=== PATIENT | female | born 1935 | race Caucasian/White ===

== ENCOUNTER 2016-08-23 09:27 | Emergency (ER) | payer MEDICARE, BC ==
[2016-08-23] MEDS: Aspirin Low Dose CHEW TAB* 81 MG PO ONE ×2 (10:21→10:51)
[2016-08-23 10:54] VITALS: BP 183/94
--- NOTE | 2016-08-23 13:33 | UC ---
rachele Cardona Timothy, scribed for Carmen Azevedo DO on 08/23/16 at 0952 . Cardiac HPI - HPI Summary HPI Summary: Sheeba Craft is a 81 yo female presenting to [facility] with 4/10 constant left sided CP and ache for the past week. She states she fell 2 weeks ago but states that has no had any negative affects on her, and denies pain in the left neck or arm. She states pain increases with cough or sneezing, as well as position changes. Pt has had cough for the past year, and has seen her PCP for it. She states she has some SOB due to valve problems, but this is not different from baseline. She denies any other Sx. Her MHx includes right sided breast CA 2011. - History of Current Complaint Stated Complaint: CHEST PAIN, Time Seen by Provider: 08/23/16 09:59 Hx Obtained From: Patient Onset/Duration: Sudden Onset, Lasting Hours, Still Present Timing: Constant Initial Severity: Moderate Current Severity: Moderate Pain Intensity: 4 Chest Pain Location: Discrete at: - left sternal Character: Dull/Aching, Sharp/Stabbing - with sneezing, coughing and certain movements Aggravating: Position Alleviating: Position Associated Signs & Symptoms: Positive: Chest Pain, SOB - baseline. Negative: Dizziness, Fever, Diaphoresis, Nausea/Vomiting, Abdominal Pain - Allergy/Home Medications Allergies/Adverse Reactions: Allergies Allergy/AdvReac Type Severity Reaction Status Date / Time No Known Allergies Allergy Verified 08/23/16 11:16 Home Medications: Home Medications Alendronate Sodium [Alendronate Sodium-] 35 mg 08/23/16 [History] Aspirin EC Low Dose* [Ecotrin EC Low Dose*] 1 tab PO DAILY 08/23/16 [History Confirmed 08/23/16] Cholecalciferol TAB* [Vitamin D TAB*] 08/23/16 [History] Hydrochlorothiazide TAB* [Hydrodiuril TAB*] 12.5 mg 08/23/16 [History] Spironolactone TAB* [Aldactone TAB 25 MG*] 12.5 mg 08/23/16 [History] PMH/Surg Hx/FS Hx/Imm Hx - Additional Past Medical History Additional PMH: leaky valves, pmr Cancer History Of: Reports: Breast Cancer - RIGHT [id number] - Surgical History Surgical History: Yes Surgery Procedure, Year, and Place: AORTA SURGERY 2005,lumpectomy right 2011, - Family History Known Family History: Positive: Hypertension Negative: Cardiac Disease, Diabetes - Social History Occupation: Retired Alcohol Use: None Substance Use Type: None Smoking Status (MU): Never Smoked Tobacco Review of Systems Constitutional: Negative Skin: Negative Eyes: Negative ENT: Negative Respiratory: Shortness Of Breath - baseline Cardiovascular: Chest Pain Gastrointestinal: Negative Genitourinary: Negative Motor: Negative Neurovascular: Negative Musculoskeletal: Negative Neurological: Negative Psychological: Negative All Other Systems Reviewed And Are Negative: Yes Physical Exam Triage Information Reviewed: Yes Appearance: Well-Appearing, No Pain Distress, Well-Nourished Vital Signs: Initial Vital Signs Temp 98.0 F 08/23/16 09:47 Pulse 82 08/23/16 09:47 Resp 18 08/23/16 09:47 BP 150/93 08/23/16 09:47 Pulse Ox 97 08/23/16 09:47 Vital Signs Reviewed: Yes Eyes: Positive: Conjunctiva Clear. Negative: Discharge ENT: Positive: Hearing grossly normal. Negative: Muffled/hoarse voice Neck: Positive: Supple, Nontender Respiratory: Positive: Lungs clear, Normal breath sounds, No respiratory distress, No accessory muscle use Cardiovascular: Positive: No Murmur, Other: - reproducible chest tenderness to palpation at left aspect of sternum. Negative: RRR - irregular rhythm Musculoskeletal Exam: Normal Neurological Exam: Normal Neurological: Positive: Alert, Muscle Tone Normal Psychological Exam: Normal Psychological: Positive: Age Appropriate Behavior Skin Exam: Normal - warm, dry, normal color Diagnostics - EKG Cardiac Rate: NL - Interpretation: 0932 Sinus arrythmia@ [address] changes, positive PVC's. Premature ventricular complexes new when compared to EKG 05/22/10. Re-Evaluation - Re-Evaluation First Eval Re-Evaluation Time: 10:19 Change: Unchanged Comment: Pt was informed of current disposition, and is agreeable to be transferred by ambulance to [facility] - Assessment/Plan Course Of Treatment: Sheeba Craft is a 81 yo female presenting to [facility] with CP for the past week, with some SOB due to leaky valves, not different from baseline. She denies left arm, neck, or jaw pain. After clinical examination and review of her EKG, as well as discussion with Dr. Aguirre, she will be transferred to [facility] by ambulance for further evaluation and Tx. - Clinical Impression Provider Diagnoses: chest pain - Physician Notifications Discussed Patient Care With: 1013 - Dr. Aguirre ([facility] physician) - Discussed Pt condition, agrees to see Pt in [facility]. Instructed by Provider To: MD Will See In ED Discharge - Discharge Plan Condition: Stable Disposition: TRANS HIGHER LVL OF CARE FAC Discharge Disposition Comment: Pt will be transferred to [facility] for further care and evaluation of her CP Referrals: Mi Grajeda MD [Primary Care Provider] - The documentation as recorded by the rachele lopez Timothy accurately reflects the service I personally performed and the decisions made by me, Carmen Azevedo DO.
== END 2016-08-23 10:51 | disposition short-term general hospital (02) ==
LOC: UCEAST 09:27
DX: R07.89 Other chest pain (principal); R06.02 Shortness of breath; I49.3 Ventricular premature depolarization; Z85.3 Personal history of malignant neoplasm of breast
CPT/HCPCS: 93005; 99213; A9270-GY; G0463

== ENCOUNTER 2016-08-23 11:04 | Emergency (ER) | payer MEDICARE, BC ==
[2016-08-23 11:37] LABS: Hematocrit 46 % (35-47); Mean Corpuscular HGB Conc 32 g/dl (31-36); Mean Corpuscular Hemoglobin 29 pg (27-31); Mean Corpuscular Volume 90 fL (80-97); Mean Platelet Volume 10 um3 (7.4-10.4); Red Blood Count 5.14 10^6/ul (4.0-5.4); Red Cell Distribution Width 15 % (10.5-15); White Blood Count 5.9 10^3/ul (3.5-10.8)
[2016-08-23 11:55] LABS: C Reactive Protein 8.83 mg/L (< 5.00); Calcium 9.7 mg/dL (8.6-10.3); EGFR African American 73.9 (>60); EGFR Non-African American 57.4 (>60); Globulin 3.6 g/dL (2-4); Magnesium 1.8 mg/dL (1.9-2.7); Potassium 4.4 mmol/L (3.5-5.0); Total Bilirubin 0.6 mg/dL (0.2-1.0); Total Protein 7.6 g/dL (6.4-8.9)
[2016-08-23 11:56] LABS: Troponin I 0.01 ng/mL (<0.04)
[2016-08-23 12:01] VITALS: BP 179/93
[2016-08-23 12:03] LABS: TSH (Thyroid Stimulating Horm) 2.67 mcIU/mL (0.34-5.60)
--- NOTE | 2016-08-23 12:06 | RAD ---
INDICATION: LEFT anterior chest pain. Fall a couple of weeks ago. Pain worse this weekend. History of RIGHT breast carcinoma. COMPARISON: July 12, 2016 CT chest. 2 view LEFT rib series obtained. TECHNIQUE: Dual energy PA and routine lateral views of the chest were obtained. REPORT: Elevated lung volumes with both mild prominence and rarefaction of the interstitial markings. No focal pulmonary lesion, alveolar consolidation, pleural effusion, pneumothorax. Cardiomegaly. Prosthetic mitral valve annulus. Mediastinal vascular clips. Unremarkable central pulmonary vasculature. Mildly tortuous descending thoracic aorta. No LEFT rib or other thoracic fracture evident. Mild thoracic degenerative spondylosis. Postsurgical change of RIGHT breast lumpectomy. RIGHT axillary surgical clips. IMPRESSION: 1. No traumatic thoracic injury evident. 2. Stigmata of probable chronic obstructive pulmonary disease and emphysema. 3. No evidence for acute intrathoracic disease.
[2016-08-23 12:23] LABS: BUN/Creatinine Ratio 22.3 (8-20)
--- NOTE | 2016-08-23 12:25 | ED ---
Brendan, DoctorJyoti, scribed for Kam Aguirre MD on 08/23/16 at 1134 . HPI Chest Pain - HPI Summary HPI Summary: 81 year old female arrived to [facility] by ambulance after referral by [facility] for left chest pain that has been constant for a week. Patient reports the pain to be 8/10 at its worse, but now largely resolved. Pt reports slight SOB and indicates that pain is exacerbated by movement, deep breaths, and sneezing. She denies any nausea, vomiting, abdominal pain, rashes, cough, or rhinorrhea. She fell two weeks ago, and has a bruise on her left chest. She has no PMHx of SD, DM, smoking, blood clots, GERD, or gallbladder problems. She regularly sees Dr. Marquez ([facility]). - History of Current Complaint Chief Complaint: EDChestPainROMI Time Seen by Provider: 08/23/16 11:09 Hx Obtained From: Patient Onset/Duration: Started Days Ago Timing: Constant Initial Severity: Moderate Current Severity: Moderate Pain Intensity: 0 Pain Scale Used: 0-10 Numeric Chest Pain Radiates: No Aggravating Factor(s): Exertion, Movement, Deep Breaths, Other: - sneezing Alleviating Factor(s): Spontaneous Resolution Associated Signs and Symptoms: Positive: Chest Pain, Shortness of Breath. Negative: Nausea, Vomiting - Allergy/Home Medications Allergies/Adverse Reactions: Allergies Allergy/AdvReac Type Severity Reaction Status Date / Time No Known Allergies Allergy Verified 08/23/16 11:16 PMH/Surg Hx/FS Hx/Imm Hx Endocrine/Hematology History: Denies: Hx Diabetes Cardiovascular History: Reports: Hx Hypertension Denies: Hx Myocardial Infarction GI History: Denies: Hx Gall Bladder Disease Musculoskeletal History: Denies: Hx Rheumatoid Arthritis, Hx Osteoporosis - Cancer History Cancer Type, Location and Year: RIGHT SIDED BREAST CANCER 2012 Hx Chemotherapy: Yes - BREAST Hx Radiation Therapy: Yes - BREAST - Surgical History Surgery Procedure, Year, and Place: AORTA SURGERY 2006,lumpectomy right 2012 Infectious Disease History: No Infectious Disease History: Denies: Traveled Outside the [place] in Last 30 Days - Family History Known Family History: Positive: Other - FHx of breast cancer - Social History Alcohol Use: None Substance Use Type: Reports: None Smoking Status (MU): Never Smoked Tobacco Review of Systems Negative: Fever Negative: Nasal Discharge Positive: Chest Pain Positive: Shortness Of Breath Negative: Abdominal Pain, Vomiting, Nausea Positive: Bruising - small bruise on left chest. Negative: Rash All Other Systems Reviewed And Are Negative: Yes Physical Exam Triage Information Reviewed: Yes Vital Signs On Initial Exam: Initial Vitals Temp Pulse Resp BP Pulse Ox 98.1 F 79 15 164/102 99 08/23/16 11:12 08/23/16 11:12 08/23/16 11:12 08/23/16 11:12 08/23/16 11:12 Vital Signs Reviewed: Yes Appearance: Positive: Well-Appearing, No Pain Distress Skin: Positive: Warm, Skin Color Reflects Adequate Perfusion, Dry, Tender - bruise on left chest TTP. Calves are non-tender, Other - 4 x 2.5 cm ecchymosis on left chest Head/Face: Positive: Normal Head/Face Inspection Eyes: Positive: EOMI, TEVIN ENT: Positive: Normal ENT inspection Neck: Positive: Supple, Nontender Respiratory/Lung Sounds: Positive: Clear to Auscultation, Breath Sounds Present Cardiovascular: Positive: IRR - some irregularity in the heart Abdomen Description: Positive: Nontender, Soft Bowel Sounds: Positive: Present Musculoskeletal: Positive: Normal. Negative: Edema Left - no edema in LLE, Edema Right - no edema in RLE Neurological: Positive: Normal, Sensory/Motor Intact, Alert, Oriented to Person Place, Time Psychiatric: Positive: Normal, Affect/Mood Appropriate Diagnostics - Vital Signs Vital Signs Temp Pulse Resp BP Pulse Ox 08/23/16 11:12 98.1 F 79 15 164/102 99 - Laboratory Lab Results: Lab Results 08/23/16 08/23/16 08/23/16 Range/Units 10:38 10:38 10:38 WBC 5.9 (3.5-10.8) 10^3/ul RBC 5.14 (4.0-5.4) 10^6/ul Hgb 15.0 (12.0-16.0) g/dl Hct 46 (35-47) % MCV 90 (80-97) fL MCH 29 (27-31) pg MCHC 32 (31-36) g/dl RDW 15 (10.5-15) % Plt Count 135 L (150-450) 10^3/ul MPV 10 (7.4-10.4) um3 Neut % (Auto) 70.0 (38-83) % Lymph % (Auto) 19.8 L (25-47) % [place] % (Auto) 8.9 (1-9) % Eos % (Auto) 0.7 (0-6) % Baso % (Auto) 0.6 (0-2) % Absolute Neuts (auto) 4.1 (1.5-7.7) 10^3/ul Absolute Lymphs (auto) 1.2 (1.0-4.8) 10^3/ul Absolute Monos (auto) 0.5 (0-0.8) 10^3/ul Absolute Eos (auto) 0 (0-0.6) 10^3/ul Absolute Basos (auto) 0 (0-0.2) 10^3/ul Absolute Nucleated RBC 0 10^3/ul Nucleated RBC % 0 INR (Anticoag Therapy) 0.94 (0.89-1.11) APTT 31.7 (26.0-36.3) seconds D-Dimer, Quantitative < 200 (Less Than 230) ng/mL Sodium 133 (133-145) mmol/L Potassium 4.4 (3.5-5.0) mmol/L Chloride 97 L (101-111) mmol/L Carbon Dioxide 30 (22-32) mmol/L Anion Gap 6 (2-11) mmol/L BUN Pending Creatinine 0.94 (0.51-0.95) mg/dL Est GFR ( Amer) 73.9 (>60) Est GFR (Non-Af Amer) 57.4 (>60) BUN/Creatinine Ratio Pending Glucose 87 (70-100) mg/dL Lactic Acid (0.5-2.0) mmol/L Calcium 9.7 (8.6-10.3) mg/dL Magnesium 1.8 L (1.9-2.7) mg/dL Total Bilirubin 0.60 (0.2-1.0) mg/dL AST 21 (13-39) U/L ALT 9 (7-52) U/L Alkaline Phosphatase 89 (34-104) U/L Total Creatine Kinase 69 (10-223) U/L CK-MB (CK-2) 2.2 (0.6-6.3) ng/mL Troponin I 0.01 (<0.04) ng/mL C-Reactive Protein 8.83 H (< 5.00) mg/L B-Natriuretic Peptide ( - 100) pg/mL Total Protein 7.6 (6.4-8.9) g/dL Albumin 4.0 (3.2-5.2) g/dL Globulin 3.6 (2-4) g/dL Albumin/Globulin Ratio 1.1 (1-3) Lipase 30 (11.0-82.0) U/L TSH 2.67 (0.34-5.60) mcIU/mL 08/23/16 08/23/16 Range/Units 10:38 10:38 WBC (3.5-10.8) 10^3/ul RBC (4.0-5.4) 10^6/ul Hgb (12.0-16.0) g/dl Hct (35-47) % MCV (80-97) fL MCH (27-31) pg MCHC (31-36) g/dl RDW (10.5-15) % Plt Count (150-450) 10^3/ul MPV (7.4-10.4) um3 Neut % (Auto) (38-83) % Lymph % (Auto) (25-47) % [place] % (Auto) (1-9) % Eos % (Auto) (0-6) % Baso % (Auto) (0-2) % Absolute Neuts (auto) (1.5-7.7) 10^3/ul Absolute Lymphs (auto) (1.0-4.8) 10^3/ul Absolute Monos (auto) (0-0.8) 10^3/ul Absolute Eos (auto) (0-0.6) 10^3/ul Absolute Basos (auto) (0-0.2) 10^3/ul Absolute Nucleated RBC 10^3/ul Nucleated RBC % INR (Anticoag Therapy) (0.89-1.11) APTT (26.0-36.3) seconds D-Dimer, Quantitative (Less Than 230) ng/mL Sodium (133-145) mmol/L Potassium (3.5-5.0) mmol/L Chloride (101-111) mmol/L Carbon Dioxide (22-32) mmol/L Anion Gap (2-11) mmol/L BUN Creatinine (0.51-0.95) mg/dL Est GFR ( Amer) (>60) Est GFR (Non-Af Amer) (>60) BUN/Creatinine Ratio Glucose (70-100) mg/dL Lactic Acid 1.6 (0.5-2.0) mmol/L Calcium (8.6-10.3) mg/dL Magnesium (1.9-2.7) mg/dL Total Bilirubin (0.2-1.0) mg/dL AST (13-39) U/L ALT (7-52) U/L Alkaline Phosphatase (34-104) U/L Total Creatine Kinase (10-223) U/L CK-MB (CK-2) (0.6-6.3) ng/mL Troponin I (<0.04) ng/mL C-Reactive Protein (< 5.00) mg/L B-Natriuretic Peptide 169 H ( - 100) pg/mL Total Protein (6.4-8.9) g/dL Albumin (3.2-5.2) g/dL Globulin (2-4) g/dL Albumin/Globulin Ratio (1-3) Lipase (11.0-82.0) U/L TSH (0.34-5.60) mcIU/mL Result Diagrams: 08/23/16 10:38 08/23/16 10:38 Lab Statement: Any lab studies that have been ordered have been reviewed, and results considered in the medical decision making process. - Radiology Ribs X-Ray Radiology Interpretation Completed By: Radiologist - IMPRESSION: 1. No traumatic thoracic injury evident. 2. Stigmata of probable chronic obstructive pulmonary disease and emphysema. 3. No evidence for acute intrathoracic disease. Chest X-Ray Radiology Interpretation Completed By: Radiologist - IMPRESSION: 1. No traumatic thoracic injury evident. 2. Stigmata of probable chronic obstructive pulmonary disease and emphysema. 3. No evidence for acute intrathoracic disease. - EKG 11:19 Cardiac Rate: NL - 74 BPM EKG Rhythm: Sinus Rhythm - Normal Ectopy: PACs EKG Interpretation: Flipped T in III and aVF Re-Evaluation - Re-Evaluation First Eval Re-Evaluation Time: 12:13 Chest Pain Course/Dx - Course Assessment/Plan: PATIENT HAS A BRUISE ON HER CHEST WALL THAT IS TENDER TO PALPATION AND SHE REPORTS THIS IS THE PAIN SHE HAS HAD FOR 1 WEEK. LABS NORMAL. DISCUSSED ADMISSION WITH PATIENT. SHE DECLINES ADMISSION. DISCHARGE HOME STABLE. - Diagnoses Provider Diagnoses: Chest pain Discharge - Discharge Plan Condition: Stable Disposition: HOME Patient Education Materials: Chest Pain (ED) Referrals: Mi Grajeda MD [Primary Care Provider] - Additional Instructions: CALL TODAY TO FOLLOW UP WITH YOUR DOCTOR. TAKE ACETAMINOPHEN DIRECTED NEEDED FOR PAIN. RETURN TO THE EMERGENCY DEPARTMENT FOR ANY WORSENING OF YOUR CONDITION; PAIN, FEVER, SHORTNESS OF BREATH OR QUESTIONS OR CONCERNS. The documentation as recorded by the Doctor lopez Tahera accurately reflects the service I personally performed and the decisions made by me, Kam Aguirre MD.
[2016-08-23 12:52] LABS: Urine Bacteria Absent (Absent); Urine Bilirubin Negative (Negative); Urine Glucose Negative (Negative); Urine Nitrite Negative (Negative)
--- NOTE | 2016-08-25 12:35 | PN ---
Progress Note - Progress Note Note: patient was seen and diagnosed with chest pain on 08/22/16. Not complaining of any urinary symptoms. Urine culture preliminary results came back positive for Klebsiella pneumonia 25-50,000 count. Not enough to be treated especially without complaints or symptoms. Pending final results with susceptibility. No changes needed at this time.
--- NOTE | 2016-08-26 11:06 | PN ---
Progress Note - Progress Note Note: Spoke with Mrs Craft today at 11:02am. Patient is feeling better, she is still sore but has not developed any new or worsening symptoms. Patient denies any urinary symptoms and does not have a catheter. Is aware or urine culture showing some small amount of klebsiella pneumoniae growth however would not be treated at this time. Educated on worsening signs and symptoms to be aware of for possible treatment in the future. No treatment or change needed at this time.
== END 2016-08-23 16:17 | disposition home or self-care (01) ==
LOC: ED 11:04
DX: S20.212A Contusion of left front wall of thorax, initial encounter (principal); R07.9 Chest pain, unspecified; R06.02 Shortness of breath; X58.XXXA Exposure to other specified factors, initial encounter; Y93.9 Activity, unspecified; Y92.9 Unspecified place or not applicable; Y99.9 Unspecified external cause status; I49.3 Ventricular premature depolarization; Z85.3 Personal history of malignant neoplasm of breast
CPT/HCPCS: 36415; 71020; 80053; 81003; 81015; 82550; 82553; 83605; 83690; 83735; 83880; 84443; 84484; 85025; 85379; 85610; 85730; 86140; 87077; 87086; 87186; 93005; 99213; 99282; A9270-GY; G0463

== ENCOUNTER 2018-03-07 11:03 | Inpatient (IN) | payer MEDICARE, BC ==
--- NOTE | 2018-03-07 11:28 | RAD ---
HISTORY: CP COMPARISONS: August 23, 2016 VIEWS: 1: frontal portable view of the chest at 11:23 AM FINDINGS: LINES AND TUBES: None. CARDIOMEDIASTINAL SILHOUETTE: The cardiac silhouette is enlarged. Periprosthetic heart valve is noted.. PLEURA: The costophrenic angles are sharp. No pleural abnormalities are noted. LUNG PARENCHYMA: There is hyperinflation. ABDOMEN: The upper abdomen is clear. There is no subphrenic gas. 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 IMPRESSION: 1. HYPERINFLATION. 2. CARDIOMEGALY. 3. NO ACTIVE CARDIOPULMONARY DISEASE.
--- NOTE | 2018-03-07 11:37 | ED ---
HPI Cardiac - HPI Summary HPI Summary: Patient is a 82 y/o F w/ c/o chest heaviness and tiredness for the past month. She notes that Sx have progressively worsened. Patient reports that she has had difficulty getting an appointment with Dr. Marquez. She was seen by Dr. Marquez' s PA Miroslava Monsivais, who reports that patient had extra heartbeats. In the room, patient reports chest pressure/heaviness. On triage, associated severity is 8/ 10. She notes that pressure resolves when lying flat/standing still. Chest pressure onsets during exertion. She also reports chills and sweating. She denies feelings of near syncope, N/V, SOB, and palpitations. Patient states that she has not had a stress test in years. No Hx of MO is reported. She notes that she had a valve repair around ten years ago. Patient denies being on blood thinners. One baby aspirin was taken by patient this morning. Home medications and allergies reviewed. - History of Current Complaint Chief Complaint: EDChestPainROMI Stated Complaint: CHEST DISCOMFORT Time Seen by Provider: 03/07/18 11:08 Hx Obtained From: Patient Onset/Duration: Started Weeks Ago - onset a month ago, Still Present Timing: Constant Current Severity: Severe - 8/10 Pain Intensity: 8 Pain Scale Used: 0-10 Numeric - 8/10 Character: Heaviness, Pressure/Squeezing Aggravating Factor(s): Exertion Alleviating Factor(s): Rest - lying flat, standing still Associated Signs and Symptoms: Positive: Chills, Diaphoresis, Other: - POSITIVE : chest pressure, tiredness NEGATIVE: near syncope. Negative: Shortness of Breath, Nausea, Palpitations, Vomiting - Allergy/Home Medications Allergies/Adverse Reactions: Allergies Allergy/AdvReac Type Severity Reaction Status Date / Time No Known Allergies Allergy Verified 08/23/16 11:16 Home Medications: Home Medications Aspirin EC TAB* [Ecotrin EC Low Dose 81 MG*] 81 mg PO QAM 03/07/18 [History Confirmed 03/07/18] Cholecalciferol TAB* [Vitamin D TAB*] 2,000 unit PO QAM 03/07/18 [History Confirmed 03/07/18] Cyanocobalamin TAB* [Vitamin B12 TAB*] 500 mcg PO Q72H 03/07/18 [History Confirmed 03/07/18] Cyclosporine 0.05% OPHTH (NF) [Restasis 0.05% OPHTH] 1 drop BOTH EYES BID [History Confirmed 03/07/18] Hydrochlorothiazide TAB* [Hydrodiuril TAB*] 25 mg PO EVERY OTHER DAY 03/07/18 [ History Confirmed 03/07/18] PMH/Surg Hx/FS Hx/Imm Hx Endocrine/Hematology History: Denies: Hx Diabetes Cardiovascular History: Reports: Hx Hypertension Denies: Hx Myocardial Infarction GI History: Denies: Hx Gall Bladder Disease Musculoskeletal History: Denies: Hx Rheumatoid Arthritis, Hx Osteoporosis - Cancer History Cancer Type, Location and Year: RIGHT SIDED BREAST CANCER 2011 Hx Chemotherapy: Yes - BREAST Hx Radiation Therapy: Yes - BREAST - Surgical History Surgery Procedure, Year, and Place: [facility] SURGERY 2005,lumpectomy right 2011 Infectious Disease History: No Infectious Disease History: Denies: Traveled Outside the [place] in Last 30 Days - Family History Known Family History: Positive: Hypertension, Other - FHx of breast cancer Negative: Cardiac Disease, Diabetes - Social History Alcohol Use: None Substance Use Type: Reports: None Smoking Status (MU): Never Smoked Tobacco Review of Systems Positive: Chills, Fatigue - tiredness , Skin Diaphoresis Positive: Other - chest pressure/heaviness, extra heartbeats . Negative: Palpitations Negative: Shortness Of Breath Negative: Vomiting, Nausea Neurological: Other - NEGATIVE: near syncope All Other Systems Reviewed And Are Negative: Yes Physical Exam - Summary Physical Exam Summary: VITAL SIGNS: Reviewed. GENERAL: Patient is a well-developed and nourished female who is lying comfortable in the stretcher. Patient is not in any acute respiratory distress. HEAD AND FACE: No signs of trauma. No ecchymosis, hematomas or skull depressions. No sinus tenderness. EYES: PERRLA, EOMI x 2, No injected conjunctiva, no nystagmus. EARS: Hearing grossly intact. Ear canals and tympanic membranes are within normal limits. MOUTH: Oropharynx within normal limits. NECK: Supple, trachea is midline, no adenopathy, no JVD, no carotid bruit, no c- spine tenderness, neck with full ROM. CHEST: Symmetric, no tenderness at palpation LUNGS: Clear to auscultation bilaterally. No wheezing or crackles. CVS: Regular rate and rhythm, S1 and S2 present, no gallops appreciated. 2/6 ejection systolic murmur is appreciated. ABDOMEN: Soft, non-tender. No signs of distention. No rebound no guarding, and no masses palpated. Bowel sounds are normal. EXTREMITIES: FROM in all major joints, no edema, no cyanosis or clubbing. NEURO: Alert and oriented x 3. No acute neurological deficits. Speech is normal and follows commands. SKIN: Dry and warm Triage Information Reviewed: Yes Vital Signs On Initial Exam: Initial Vitals Temp Pulse Resp BP Pulse Ox 98.1 F 59 18 164/84 98 03/07/18 11:05 03/07/18 11:05 03/07/18 11:05 03/07/18 11:05 03/07/18 11:05 Vital Signs Reviewed: Yes Diagnostics - Vital Signs Vital Signs Temp Pulse Resp BP Pulse Ox 03/07/18 11:05 98.1 F 59 18 164/84 98 - Laboratory Result Diagrams: 03/07/18 11:36 03/07/18 11:36 Lab Statement: Any lab studies that have been ordered have been reviewed, and results considered in the medical decision making process. - Radiology CXR Xray Interpretation: No Acute Changes Radiology Interpretation Completed By: Radiologist - hyperinflation, cardiomegaly, no active cardiopulmonary disease; this report was reviewed by ED physician. - EKG 1116 Cardiac Rate: NL - rate of 90 bpm EKG Rhythm: Sinus Rhythm Ectopy: PVCs - multiple Re-Evaluation - Re-Evaluation First Eval Re-Evaluation Time: 12:42 Comment: Patient was informed of decision to admit to [facility] [place] further workup. Patient understands and is agreeable with this plan. Disposition - Course Assessment/Plan: This patient is an 82-year-old female with past medical history significant for breast cancer, congestive heart failure, chronic fatigue , presents to the emergency room with a chief complaint of having chest heaviness. Patient reports that chest heaviness or pain is associated with exertion. Patient is be having the symptoms for approximately one month. The chest pain or heaviness improves with rest, positive diaphoresis, denies any nausea or vomiting, denies any shortness of breath, near syncope or palpitations. EKG shows a sinus rhythm at [address] elevations. Patient has multiple PVCs. Chest x-ray impression: Hyperventilation. Cardiomegaly. No active cardiopulmonary disease. During the ED course the patient was given aspirin. I held the beta ricardo and nitroglycerin since the patient chest pain is only on exertion . I believe that the patients chest pain is possibly secondary to stable angina. However because of the symptoms and comorbidities I discussed case with Dr. Harmon from the hospital services was accepted the patient for admission. Patient is hemodynamically stable alert and oriented 3. - Differential Dx - Cardiopulmonary Differential Diagnoses - Cardiopulmonary: CAD, CHF, Myocardial Infarction, Other - Angina - Diagnoses Provider Diagnoses: Angina pectoris - Physician Notifications Discussed Care Of Patient With: Roxana Harmon Time Discussed With Above Provider: 13:24 Instructed by Provider To: Other - Patient's case was discussed with Dr. Harmon at 1324. Dr. Harmon agrees to accept patient for admission to [facility]. Discharge - Sign-Out/Discharge Documenting (check all that apply): Patient Departure - admit - Discharge Plan Condition: Good Disposition: ADMITTED TO [facility] - Billing Disposition and Condition Condition: GOOD Disposition: Admitted to [facility] - Attestation Statements Document Initiated by Scribe: Yes Documenting Scribe: Travis Beltran Provider For Whom Stephaneibe is Documenting (Include Credential): Kp France MD Scribe Attestation: I, Travis Beltran, scribed for Kp France MD on 03/07/18 at 1844. Scribe Documentation Reviewed: Yes Provider Attestation: The documentation as recorded by the Travis lopez accurately reflects the service I personally performed and the decisions made by me, Kp France MD
[2018-03-07 11:44] LABS: Hematocrit 44 % (35-47); Hemoglobin 14.9 g/dl (12.0-16.0); Mean Corpuscular HGB Conc 34 g/dl (31-36); Mean Corpuscular Hemoglobin 30 pg (27-31); Mean Corpuscular Volume 88 fL (80-97); Mean Platelet Volume 8.8 um3 (7.4-10.4); Platelet Count 103 10^3/ul (150-450); Red Blood Count 5.04 10^6/ul (4.00-5.40); Red Cell Distribution Width 14 % (10.5-15); White Blood Count 6.3 10^3/ul (3.5-10.8)
[2018-03-07 11:52] LABS: INR 1.01 (0.77-1.02)
--- OUTSIDE RECORDS SUMMARY | 2018-03-07 11:55 | XMS REPORT ---
:1935 External Reference #:[id number] Author Organization [facility] Address [address] [place] [address] Phone [phone] Care Team Providers Name Role Phone Mi Grajeda MD Primary Care Physician Unavailable Payers Type Date Identification Numbers Payment Provider Subscriber Medicare Primary Policy Number: [id number] Medicare Edie Craft PayID: [id number] [address] [place] [address] Medigap Part B Policy Number: [id number] [facility] Matt Venancio PayID: [id number] [address] [place] [address] Problems Date Description Provider Status Onset: 03/13/2012 Giant cell arteritis Thompson Messer M.D. Active Onset: 03/13/2012 Neoplasm of breast Thompson Messer M.D. Active Onset: 06/05/2012 Disorder of bursa of shoulder region Thompson Messer M.D. Active Onset: 04/16/2013 Mitral valve disorder Mi Marquez M.D. Active Onset: 04/16/2013 Disorder of shoulder Mi Marquez M.D. Active Onset: 04/16/2013 Dyspnea Mi Marquez M.D. Active Onset: 06/03/2014 Tricuspid valve disorder, non-rheumatic Mi Marquez M.D. Active Onset: 06/03/2014 Left heart failure Mi Marquez M.D. Active Onset: 06/03/2014 Congestive heart failure Mi Marquez M.D. Active Onset: 06/03/2014 History of fall Mi Marquez M.D. Active Onset: 06/03/2014 Atrial fibrillation Mi Marquez M.D. Active Onset: 07/27/2016 Essential hypertension Mi Marquez M.D. Active Onset: 09/11/2015 Chronic diastolic heart failure Mi Marquez M.D. Active Family History Date Family Member(s) Problem(s) Comments General [facility] of [place] in [address] Father [address] Social History Type Date Description Comments Marital Status Lives With Occupation Retired Cigarette Use Never Smoked Cigarettes ETOH Use Denies alcohol use Smoking Patient has never smoked Recreational Drug Use Denies Drug Use Daily Caffeine Soda 1 three times per week Daily Caffeine Herbal tea 1 cup 2x times per week Daily Caffeine consumes chocolate occasionally Exercise Type/Frequency Exercises sporadically General Hx Text Do you follow a special diet:no Do you have problems with snoring, daytime fatigue: no snoring ," mouth dry". Yes daytime fatigue. Allergies, Adverse Reactions, Alerts Date Description Reaction Status Severity Comments 02/12/2014 Statins active 08/19/2017 Arimidex active felt terrible, SOB and more. 01/07/2011 NKDA inactive Medications Medication Date Status Form Strength Qnty SIG Indications Ordering Provider Spironolactone 09/10 Active Tablets 25mg 45tab 1/2 tablet I50.32 s by mouth Jimmy, every day M.D. in the morning alternate with hctz Hydrochlorothiazid 02/12 Active Capsules 12.5mg 90cap 2 by mouth Mi s every other [place], day in the M.D. morning, alternating with spironolact one Asa Active 81mg 30uni 1 po qd Am Unknown / ts Vitamin B-12 Active Tablets 500mcg 90tab 1 tablet po Unknown /0000 s every 3-4 days Vitamin D 00 Active Tablets 2000Units 1 tablet po Unknown /0000 daily Am Restasis Active Emulsion 0.05% 1 gtt both Unknown /0000 eyes twice daily Am/PM Cardizem CD 10/05 Hx Caps ER 120mg 90cap 1 by mouth R06.02 24HR s every day Jimmy, - M.D. 01/01 Xarelto 06/03 Hx Tablets 20mg 90tab 1 by mouth I48.91 Mi s every day Jimmy, - PM ( On M.D. 12/29 Hold since 10/14/15, told to hold additonal 5 days) Klor-Con 10 04/03 Hx Tablets 10Meq 180ta take 1 ER bs tablet by Jimmy, - mouth once M.D. 09/10 daily ( takes1 tablet every 3-4 days ,if she can swallow tablet) Potassium Chloride 02/12 Hx Tablets 8Meq 60tab 1 by mouth Mi ER s daily Jimmy - M.D. 04/03 Metoprolol 02/11 Hx Tablets 25mg 1 by mouth R06.02 Other Succinate ER 24HR every day Ordering - PM Provider 10/05 Pradaxa 02/07 Hx Capsules 150mg 60cap 1 cap by 427.31 s mouth daily Jimmy, - Am ( time M.D. 06/03 taken change per patient ) Anastrozole 04/16 Hx Tablets 1mg Mi Jimmy - M.D. 05/31 Metoprolol 12/01 Hx Tablets 50mg 90tab 1 po qd Other Succinate ER 24HR s Ordering - Provider 02/11 Cyclobenzaprine 07/16 Hx Tablets 5mg 60tab 1 po hs and s prn Ayde, - M.D. 03/13 Prednisone 03/19 Hx Tablets 1mg 90tab 1 po qd s Endo, - M.D. 03/13 Prednisone 11/18 Hx Tablets 5mg 90tab 1 po qd s Endo, - M.D. 11/18 Prednisone 11/18 Hx Tablets 5mg 30tab 1 po qd x 2 s weeks, then Endo, - 1/2 qd M.D. 01/07 Flector 11/18 Hx Patches 1.3% 60uni topical ts twice a day Endo, - M.D. 01/07 Metoprolol/Hydroch Hx Tablets 50-25mg Unknown lorothiazide /0000 - 12/01 Klor-Con 10 Hx Tablets 10Meq 30tab 1 po qd Unknown /0000 ER s - 01/07 Calcium 500 + D Hx Tablets 500-125mg i po bid Unknown -Unit - 09/08 Ocuvite Extra Hx Tablets 1 tablet po daily - 09/09 Prednisone Hx Tablets 2.5mg 1 po qd - 03/19 Anastrozole Hx Tablets 1mg 1 po qd - 04/13 Vitamin B12 Hx Tablets 100mcg po qd - 04/13 Vitamin D-400 Hx Tablets 2000 1 po qd - 04/16 Lisinopril Hx Tablets 5mg 90tab 1 po qd s - 04/13 Hydrochlorothiazid Hx Tablets 12.5mg 90tab 1 po qd [place] s Mi carranza - MD 02/11 Alendronate Sodium Hx 35mg 1 weekly - 08/18 Arimidex Hx Tablets 1mg 1 tablet daily - 02/20 Anastrozole 00 Hx Tablets 1mg 1 daily qhs - 01/13 Immunizations CPT Code Status Date Vaccine Lot # [id number] Given 05/10/2012 Zoster (Zostavax) [id number] Given 04/12/2012 Fluzone Vaccine [id number] Given 03/19/2011 Afluria Vaccine [id number] Vital Signs Date Vital Result Comment 03/06/2018 Height 60 inches 5'0" Weight 135.00 lb Heart Rate 64 /min BP Systolic Sitting 122 mmHg LA, reg BP Diastolic Sitting 78 mmHg LA, reg BMI (Body Mass Index) 26.4 kg/m2 Ejection Fraction 55%-60% 09/25/15 echo 02/23/2018 Height 60 inches 5'0" Weight 134.00 lb Heart Rate 68 /min BP Systolic Sitting 120 mmHg regular manual cuff BP Diastolic Sitting 70 mmHg regular manual cuff BP Systolic Standing 118 mmHg regular manual cuff BP Diastolic Standing 68 mmHg regular manual cuff BMI (Body Mass Index) 26.2 kg/m2 08/19/2017 Height 60 inches 5'0" Weight 135.00 lb No shoes Heart Rate 78 /min BP Systolic Sitting 128 mmHg Lue reg cuff BP Diastolic Sitting 86 mmHg Lue reg cuff BP Systolic Standing 128 mmHg Lue reg cuff BP Diastolic Standing 84 mmHg Lue reg cuff Respiratory Rate 16 /min BMI (Body Mass Index) 26.4 kg/m2 Ejection Fraction 55-60% date 09/25/15 ECHO 07/27/2016 Height 60 inches 5'0" Weight 137.50 lb w/o shoes Heart Rate 84 /min BP Systolic Sitting 120 mmHg Lue, reg cuff BP Diastolic Sitting 84 mmHg Lue, reg cuff BP Systolic Standing 114 mmHg Lue BP Diastolic Standing 76 mmHg Lue Respiratory Rate 16 /min BMI (Body Mass Index) 26.9 kg/m2 Ejection Fraction 55-60% as of 09/25/15 echo 01/15/2016 Height 60 inches 5'0" Weight 138.00 lb w/ shoes Heart Rate 78 /min BP Systolic Sitting 130 mmHg LA lg cuff BP Diastolic Sitting 78 mmHg LA lg cuff BP Systolic Standing 122 mmHg LA lg cuff BP Diastolic Standing 74 mmHg LA lg cuff BP Systolic Recheck 120 mmHg BP Diastolic Recheck 90 mmHg Respiratory Rate 16 /min BMI (Body Mass Index) 26.9 kg/m2 Ejection Fraction 55-60% Echo 09/23/15 10/17/2015 Height 60 inches 5'0" Weight 142.00 lb with shoes Heart Rate 62 /min BP Systolic Sitting 102 mmHg LA reg cuff BP Diastolic Sitting 72 mmHg LA reg cuff BP Systolic Standing 98 mmHg LA reg cuff BP Diastolic Standing 68 mmHg LA reg cuff Respiratory Rate 16 /min BMI (Body Mass Index) 27.7 kg/m2 Ejection Fraction 55-60% date 09/25/15 ECHO 10/06/2015 Height 60 inches 5'0" Weight 141.31 lb with shoes Heart Rate 68 /min irreg BP Systolic Sitting 140 mmHg LA reg cuff BP Diastolic Sitting 84 mmHg LA reg cuff BP Systolic Standing 138 mmHg LA reg cuff BP Diastolic Standing 78 mmHg LA reg cuff Respiratory Rate 16 /min BMI (Body Mass Index) 27.6 kg/m2 09/11/2015 Height 60 inches 5'0" Weight 145.00 lb with shoes Heart Rate 62 /min BP Systolic Sitting 138 mmHg LA reg cuff BP Diastolic Sitting 84 mmHg LA reg cuff BP Systolic Standing 130 mmHg LA reg cuff BP Diastolic Standing 76 mmHg LA reg cuff Respiratory Rate 16 /min BMI (Body Mass Index) 28.3 kg/m2 Ejection Fraction 55-60% date 01/24/15 ECHO 02/21/2015 Height 60 inches 5'0" Weight 141.00 lb with shoes Heart Rate 80 /min BP Systolic Sitting 126 mmHg LA, reg cuff BP Diastolic Sitting 74 mmHg LA, reg cuff BP Systolic Standing 114 mmHg LA BP Diastolic Standing 76 mmHg LA Respiratory Rate 14 /min BMI (Body Mass Index) 27.5 kg/m2 Ejection Fraction 55-60% 01/24/2015 01/03/2015 Height 60 inches 5'0" Weight 138.00 lb Heart Rate 68 /min BP Systolic Sitting 136 mmHg Ra reg cuff BP Diastolic Sitting 82 mmHg Ra reg cuff BP Systolic Standing 128 mmHg Ra BP Diastolic Standing 80 mmHg Ra Respiratory Rate 16 /min BMI (Body Mass Index) 26.9 kg/m2 Ejection Fraction 60% 06/27/14 11/08/2014 Height 60 inches 5'0" Weight 142.00 lb Heart Rate 80 /min BP Systolic Sitting 126 mmHg LA reg cuff BP Diastolic Sitting 88 mmHg LA reg cuff BP Systolic Standing 120 mmHg LA BP Diastolic Standing 82 mmHg LA Respiratory Rate 16 /min BMI (Body Mass Index) 27.7 kg/m2 Ejection Fraction 60% 06/27/14 08/23/2014 Height 60 inches 5'0" Weight 144.00 lb w/ shoes Heart Rate 78 /min BP Systolic Sitting 120 mmHg LA, reg cuff BP Diastolic Sitting 70 mmHg LA, reg cuff BP Systolic Standing 110 mmHg LA BP Diastolic Standing 70 mmHg LA Respiratory Rate 16 /min BMI (Body Mass Index) 28.1 kg/m2 06/03/2014 Height 60 inches 5'0" Weight 144.00 lb without shoes Heart Rate 68 /min BP Systolic Sitting 116 mmHg left arm reg cuff BP Diastolic Sitting 58 mmHg left arm reg cuff BP Systolic Standing 114 mmHg left arm reg cuff BP Diastolic Standing 60 mmHg left arm reg cuff Respiratory Rate 20 /min BMI (Body Mass Index) 28.1 kg/m2 02/12/2014 Height 60 inches 5'0" Weight 146.00 lb no shoes Heart Rate 50 /min BP Systolic Sitting 148 mmHg LA, reg cuff BP Diastolic Sitting 100 mmHg LA, reg cuff BP Systolic Standing 156 mmHg LA reg cuff BP Diastolic Standing 92 mmHg LA reg cuff Respiratory Rate 14 /min BMI (Body Mass Index) 28.5 kg/m2 04/16/2013 Height 60 inches 5'0" Weight 143.00 lb up 4 lbs Heart Rate 88 /min BP Systolic 124 mmHg LA reg cuff BP Diastolic 68 mmHg LA reg cuff BP Systolic Sitting 120 mmHg LA BP Diastolic Sitting 68 mmHg LA Respiratory Rate 16 /min BMI (Body Mass Index) 27.9 kg/m2 12/01/2012 Height 60 inches 5'0" Weight 138.00 lb Heart Rate 74 /min BP Systolic Sitting 124 mmHg BP Diastolic Sitting 71 mmHg BMI (Body Mass Index) 26.9 kg/m2 06/05/2012 Height 60 inches 5'0" Weight 136.00 lb Heart Rate 80 /min BP Systolic Sitting 121 mmHg BP Diastolic Sitting 70 mmHg BMI (Body Mass Index) 26.6 kg/m2 03/13/2012 Height 60 inches 5'0" Heart Rate 78 /min BP Systolic Sitting 108 mmHg BP Diastolic Sitting 62 mmHg 09/09/2011 Height 60 inches 5'0" Weight 138.00 lb Heart Rate 70 /min BP Systolic Sitting 126 mmHg BP Diastolic Sitting 71 mmHg BMI (Body Mass Index) 26.9 kg/m2 06/10/2011 Height 60 inches 5'0" Weight 137.00 lb Heart Rate 64 /min BP Systolic Sitting 120 mmHg BP Diastolic Sitting 80 mmHg BMI (Body Mass Index) 26.8 kg/m2 03/19/2011 Height 60 inches 5'0" Weight 138.00 lb BP Systolic 110 mmHg BP Diastolic 64 mmHg BMI (Body Mass Index) 26.9 kg/m2 01/07/2011 Height 60 inches 5'0" Weight 136.00 lb Heart Rate 64 /min BP Systolic Sitting 118 mmHg BP Diastolic Sitting 70 mmHg BMI (Body Mass Index) 26.6 kg/m2 11/18/2010 Height 60 inches 5'0" Weight 135.00 lb Heart Rate 80 /min BP Systolic 120 mmHg BP Diastolic 72 mmHg BMI (Body Mass Index) 26.4 kg/m2 Results Test Date Test Result H/L Range Note Laboratory test finding 10/06/2015 C Reactive Protein 8.72 mg/L High < 5.00 1 Erythrocyte Sed Rate 20 mm/Hr 0-40 TSH (Thyroid Stim Horm) 2.80 ?IU/mL 0.34-5.60 Basic Metabolic Panel 11/22/2014 Sodium 134 mmol/L 133-145 Potassium 4.0 mmol/L 3.5-5.0 Chloride 96 mmol/L Low 101-111 Co2 Carbon Dioxide 28 mmol/L 22-32 Anion Gap 10 mmol/L 2-11 Glucose 118 mg/dL High 70-100 Blood Urea Nitrogen 22 mg/dL 6-24 Creatinine 0.96 mg/dL High 0.51-0.95 BUN/Creatinine Ratio 22.9 High 8-20 Calcium 9.1 mg/dL 8.6-10.3 Egfr Non- 56.4 >60 Egfr 72.5 >60 2 Basic Metabolic Panel 08/23/2014 Sodium 135 mmol/L 133-145 3 Potassium 4.4 mmol/L 3.5-5.0 3 Chloride 99 mmol/L Low 101-111 3 Co2 Carbon Dioxide 29 mmol/L 22-32 3 Anion Gap 7 mmol/L 2-11 3 Glucose 94 mg/dL 70-100 3 Blood Urea Nitrogen 20 mg/dL 6-24 3 Creatinine 0.93 mg/dL 0.51-0.95 3 BUN/Creatinine Ratio 21.5 High 8-20 3 Calcium 9.4 mg/dL 8.6-10.3 3 Egfr Non- 58.5 >60 3 Egfr 75.2 >60 3, 4 Laboratory test finding 08/23/2014 B Type Natriuretic 240 pg/mL 3, 5 Peptide CBC With Manual Diff 11/28/2012 White Blood Count 5.0 10^3/uL 4.8-10.8 Red Blood Count 4.52 10^6/uL 4.0-5.4 Hemoglobin 14.2 g/dL 12.0-16.0 Hematocrit 43 % 35-47 Mean Corpuscular Volume 94 fL 80-97 Mean Corpuscular Hemoglobin 31 pg 27-31 Mean Corpuscular HGB Conc 33 g/dL 31-36 Red Cell Distribution Width 14 % 10.5-15 Platelet Count 116 10^3/uL Low 150-450 Mean Platelet Volume 11 um3 High 7.4-10.4 Abs Neutrophils 3.6 10^3/uL 1.5-7.7 Abs Lymphocytes 1.0 10^3/uL 1.0-4.8 Abs Monocytes 0.3 10^3/uL 0-0.8 Abs Eosinophils 0 10^3/uL 0-0.6 Abs Basophils 0 10^3/uL 0-0.2 Abs Nucleated RBC 0.01 10^3/uL Neutrophil % 69 % 38-83 Band % 1 % 0-8 Lymphocytes % 14 % Low 25-47 Monocytes % 14 % High 0-13 Eosinophils % 1 % 0-6 Basophil % 1 % 0-2 RBC Morphology Normal Normal Laboratory test finding 11/28/2012 Erythrocyte Sed Rate 17 mm/Hr 0-40 C Reactive Protein 0.5 mg/dL Less than 0.5 Comp Metabolic Panel 11/28/2012 Sodium 140 mmol/L 133-145 Potassium 4.2 mmol/L 3.5-5.0 Chloride 105 mmol/L 101-111 Co2 Carbon Dioxide 29.0 mmol/L 22-32 Anion Gap 6.0 mmol/L 2-11 Glucose 92 mg/dL 70-100 Blood Urea Nitrogen 24 mg/dL 6-24 Creatinine 1.10 mg/dL 0.50-1.40 BUN/Creatinine Ratio 21.8 High 8-20 Calcium 9.5 mg/dL 8.1-9.9 Total Protein 6.1 g/dL Low 6.2-8.1 Albumin 3.8 g/dL 3.2-5.2 Globulin 2.3 g/dL 2-4 Albumin/Globulin Ratio 1.7 1-3 Total Bilirubin 0.9 mg/dL 0.4-1.5 Alkaline Phosphatase 83 U/L 30-110 Alt 12 U/L Low 14-54 Ast 23 U/L 12-42 Egfr Non- 48.4 >60 Egfr 62.3 >60 6 Urine Microalbumin Random 10/24/2012 Ur Microalbumin (Mg/L) 11.0 mg/L 7 Urine Creatinine 106.3 mg/dL Urine Microalbumin/Creatinine 10.3 ug/mg Less Than 31 Basic Metabolic Panel 10/24/2012 Sodium 142 mmol/L 133-145 Potassium 3.7 mmol/L 3.5-5.0 Chloride 104 mmol/L 101-111 Co2 Carbon Dioxide 31.0 mmol/L 22-32 Anion Gap 7.0 mmol/L 2-11 Glucose 99 mg/dL 70-100 Blood Urea Nitrogen 24 mg/dL 6-24 Creatinine 1.10 mg/dL 0.50-1.40 BUN/Creatinine Ratio 21.8 High 8-20 Calcium 8.9 mg/dL 8.1-9.9 Egfr Non- 48.4 >60 Egfr 62.3 >60 8 Lipid Profile (Trig/Chol/HDL) 10/24/2012 Triglycerides 93 mg/dL 40-200 Cholesterol 239 mg/dL High Less than 200 HDL Cholesterol 82 mg/dL High 40-60 9 Cholesterol/HDL Ratio 2.9 Average 1-4.44 LDL Cholesterol 138.4 mg/dL High Less Than 100 10 Laboratory test 10/24/2012 LDL Cholesterol 131 mg/dL High Less Than 100 11 finding Direct Alt 13 U/L Low 14-54 Ast 23 U/L 12-42 Creatine Kinase 111 U/L 0-200 Erythrocyte Sed Rate 19 mm/Hr 0-40 Laboratory test finding 05/30/2012 C Reactive Protein 0.7 mg/dL High Less than 0.5 Comp Metabolic Panel 05/30/2012 Sodium 138 mmol/L 133-145 Potassium 4.2 mmol/L 3.5-5.0 Chloride 102 mmol/L 101-111 Co2 Carbon Dioxide 31.0 mmol/L 22-32 Anion Gap 5.0 mmol/L 2-11 Glucose 77 mg/dL 70-100 Blood Urea Nitrogen 18 mg/dL 6-24 Creatinine 1.00 mg/dL 0.50-1.40 BUN/Creatinine Ratio 18.0 8-20 Calcium 9.3 mg/dL 8.1-9.9 Total Protein 6.2 g/dL 6.2-8.1 Albumin 3.7 g/dL 3.2-5.2 Globulin 2.5 g/dL 2-4 Albumin/Globulin Ratio 1.5 1-3 Total Bilirubin 0.7 mg/dL 0.4-1.5 Alkaline Phosphatase 76 U/L 30-110 Alt 13 U/L Low 14-54 Ast 22 U/L 12-42 Egfr Non- 54.2 >60 Egfr 69.7 >60 12 Laboratory test finding 05/30/2012 Erythrocyte Sed Rate 26 mm/Hr 0-40 CBC With Manual Diff 05/30/2012 White Blood Count 4.1 10^3/uL Low 4.8- 10.8 Red Blood Count 4.54 10^6/uL 4.0-5.4 Hemoglobin 13.8 g/dL 12.0-16.0 Hematocrit 42 % 35-47 Mean Corpuscular Volume 93 fL 80-97 Mean Corpuscular Hemoglobin 30 pg 27-31 Mean Corpuscular HGB Conc 33 g/dL 31-36 Red Cell Distribution Width 14 % 10.5-15 Platelet Count 117 10^3/uL Low 150-450 Platelet Morphology Large Mean Platelet Volume 11 um3 High 7.4-10.4 Abs Neutrophils 2.9 10^3/uL 1.5-7.7 Abs Lymphocytes 0.8 10^3/uL Low 1.0-4.8 Abs Monocytes 0.3 10^3/uL 0-0.8 Abs Eosinophils 0.1 10^3/uL 0-0.6 Abs Basophils 0 10^3/uL 0-0.2 Abs Nucleated RBC 0 10^3/uL Neutrophil % 73.0 % 38-83 Band % 6.0 % 0-8 Lymphocytes % 12.0 % Low 25-47 Monocytes % 6.0 % 0-13 Eosinophils % 2.0 % 0-6 Basophil % 0 % 0-2 Reactive Lymph % 1.0 % 0-6 Metamyelocytes % 0 % 0-2 Myelocytes % 0 % 0-1 Promyelocytes % 0 % Blast % 0 % RBC Morphology Normal Normal Laboratory test finding 03/08/2012 Erythrocyte Sed Rate 30 MM/HR 0-40 CBC With Manual Diff 03/08/2012 White Blood Count 4.8 CUMM 4.8-10.8 Red Cell Count 4.42 CUMM 4.2-5.4 Hemoglobin 13.5 g/dL 12.0-16.0 Hematocrit 41 % 35-47 Mean Corpuscular Volume 92 um3 79-97 Mean Corpuscular Hemoglob 30 pg 27-31 Mean Corpuscular HGB Cone 33 g/dL 32-36 Redcell Distribution WDTH 15 % 10.5-15 Platelet Count 129 CUMM Low 150-450 Mean Platelet Volume 10.5 um3 High 7.4-10.4 Absolute Neutrophil Count 3.4 1.5-7.7 Polysegmented Neutrophil 67 % 38-83 Band Neutrophil 4 % 0-8 Lymphocyte 20 % Low 25-47 Monocyte 7 % 0-13 Eosinophil 2 % 0-6 RBC Morphology NORMAL Laboratory test finding 03/08/2012 C Reactive Protein 1.0 mg/dL High Less Than 0.5 Comp Metabolic Panel 03/08/2012 Sodium 138 mmol/L 135-145 Potassium 3.8 mmol/L 3.5-5.0 Chloride 98 mmol/L Low 101-111 Co2 (Carbon Dioxide) 32.0 mmol/L 22-32 Anion Gap 8.0 mmol/L 2-11 13 Glucose 72 mg/dL 70-100 BUN 18 mg/dL 6-24 Creatinine 0.9 mg/dL 0.50-1.40 One Over Creatinine 1.11 BUN/Creatinine Ratio 20.0 8-20 Calcium 9.1 mg/dL 8.1-9.9 Total Protein 6.5 GM/DL 6.2-8.1 Albumin 3.6 GM/DL 3.2-5.2 Globulin 2.9 GM/DL 2-4 Albumin/Globulin Ratio 1.2 1-3 Bilirubin Total 0.7 mg/dL 0.4-1.5 14 Alkaline Phosphatase 94 U/L 30-110 Alt (SGPT) 12 U/L Low 14-54 Ast (Sgot) 20 U/L 12-42 eGFR Non- 61.2 > 60 eGFR 78.7 > 60 15 1 Acute inflammation: >10.00 2 Because ethnic data is not always readily available, this report includes an eGFR for both -Americans and non- Americans. The National Kidney Disease Education Program (NKDEP) does not endorse the use of the MDRD equation for patients that are not between the ages of 18 and 70, are , have extremes of body size, muscle mass, or nutritional status, or are non- or non-. According to the National Kidney Foundation, irrespective of diagnosis, the stage of the disease is based on the level of kidney function: Stage Description GFR(mL/min/1.73 m(2)) 1 Kidney damage with normal or decreased GFR 90 2 Kidney damage with mild decrease in GFR 60-89 3 Moderate decrease in GFR 30-59 4 Severe decrease in GFR 15-29 5 Kidney failure <15 (or dialysis) 3 in June or early July, before your visit with primary MD. 4 Because ethnic data is not always readily available, this report includes an eGFR for both -Americans and non- Americans. The National Kidney Disease Education Program (NKDEP) does not endorse the use of the MDRD equation for patients that are not between the ages of 18 and 70, are , have extremes of body size, muscle mass, or nutritional status, or are non- or non-. According to the National Kidney Foundation, irrespective of diagnosis, the stage of the disease is based on the level of kidney function: Stage Description GFR(mL/min/1.73 m(2)) 1 Kidney damage with normal or decreased GFR 90 2 Kidney damage with mild decrease in GFR 60-89 3 Moderate decrease in GFR 30-59 4 Severe decrease in GFR 15-29 5 Kidney failure <15 (or dialysis) 5 >100 to <200 pg/mL: likely compensated congestive heart failure (CHF) 200 to 400 pg/mL: likely moderate CHF >400 pg/mL: likely moderate to severe CHF [place] [facility] 6 Because ethnic data is not always readily available, this report includes an eGFR for both -Americans and non- Americans. The National Kidney Disease Education Program (NKDEP) does not endorse the use of the MDRD equation for patients that are not between the ages of 18 and 70, are , have extremes of body size, muscle mass, or nutritional status, or are non- or non-. According to the National Kidney Foundation, irrespective of diagnosis, the stage of the disease is based on the level of kidney function: Stage Description GFR(mL/min/1.73 m(2)) 1 Kidney damage with normal or decreased GFR 90 2 Kidney damage with mild decrease in GFR 60-89 3 Moderate decrease in GFR 30-59 4 Severe decrease in GFR 15-29 5 Kidney failure <15 (or dialysis) 7 Microalbuminuria in a random sample is defined as: Microalbumin/Creatinine ratio of 30-299 ug/mg. 8 Because ethnic data is not always readily available, this report includes an eGFR for both -Americans and non- Americans. The National Kidney Disease Education Program (NKDEP) does not endorse the use of the MDRD equation for patients that are not between the ages of 18 and 70, are , have extremes of body size, muscle mass, or nutritional status, or are non- or non-. According to the National Kidney Foundation, irrespective of diagnosis, the stage of the disease is based on the level of kidney function: Stage Description GFR(mL/min/1.73 m(2)) 1 Kidney damage with normal or decreased GFR 90 2 Kidney damage with mild decrease in GFR 60-89 3 Moderate decrease in GFR 30-59 4 Severe decrease in GFR 15-29 5 Kidney failure <15 (or dialysis) 9 HDL Interpretation: Undesirable: High Risk: Less than 40 MG/DL Desirable: Low Risk: Greater than 60 MG/DL 10 LDL Interpretation: Low Risk Optimal Level: LDL Less than 100 MG/DL Near or Above Optimal: LDL 100-129 MG/DL Borderline High Risk: LDL 130-159 MG/DL High Risk: LDL 160-189 MG/DL Very High Risk: LDL Greater than 189 MG/DL 11 LDL Interpretation: Low Risk Optimal Level: LDL Less than 100 MG/DL Near or Above Optimal: LDL 100-129 MG/DL Borderline High Risk: LDL 130-159 MG/DL High Risk: LDL 160-189 MG/DL Very High Risk: LDL Greater than 189 MG/DL 12 Because ethnic data is not always readily available, this report includes an eGFR for both -Americans and non- Americans. The National Kidney Disease Education Program (NKDEP) does not endorse the use of the MDRD equation for patients that are not between the ages of 18 and 70, are , have extremes of body size, muscle mass, or nutritional status, or are non- or non-. According to the National Kidney Foundation, irrespective of diagnosis, the stage of the disease is based on the level of kidney function: Stage Description GFR(mL/min/1.73 m(2)) 1 Kidney damage with normal or decreased GFR 90 2 Kidney damage with mild decrease in GFR 60-89 3 Moderate decrease in GFR 30-59 4 Severe decrease in GFR 15-29 5 Kidney failure <15 (or dialysis) 13 Anion gap measurement may be of limited value in the presence of any alkalosis, especially in a combined acid base disorder. . 14 A metabolite of Naproxen, O-desmethylnaproxen, has been shown to interfere with the [place] method for measuring total bilirubin. Samples from patients who have taken Naproxen have shown spurious elevation in total bilirubin levels. 15 Because ethnic data is not always readily available, this report includes an eGFR for both -Americans and non- Americans. The National Kidney Disease Education Program (NKDEP) does not endorse the use of the MDRD equation for patients that are not between the ages of 18 and 70, are , have extremes of body size, muscle mass, or nutritional status, or are non- or non-. According to the National Kidney Foundation, irrespective of diagnosis, the stage of the disease is based on the level of kidney function: Stage Description GFR(mL/min/1.73 m(2)) 1 Kidney damage with normal or decreased GFR 90 2 Kidney damage with mild decrease in GFR 60-89 3 Moderate decrease in GFR 30-59 4 Severe decrease in GFR 15-29 5 Kidney failure <15 (or dialysis) Procedures Date CPT Code Description Status 03/06/2018 45401 EKG Tracing & Interpretation Completed 08/19/2017 [id number] EKG Tracing & Interpretation Completed 07/27/2016 [id number] EKG Tracing & Interpretation Completed 10/17/2015 [id number] EKG Tracing & Interpretation Completed 10/17/2015 [id number] EKG Tracing & Interpretation Completed 10/06/2015 [id number] EKG Tracing & Interpretation Completed 09/25/2015 [id number] ECHO Transthoracic, Real-Time 2D With Doppler And Color Completed Flow 09/12/2015 66406 ECHO Stress Test Incl Perf Contiuous ekg Monitoring Completed W/Phys Superv 09/11/2015 [id number] EKG Tracing & Interpretation Completed 03/27/2015 Bone Mineral Density Test Completed 01/24/2015 68382 ECHO Transthoracic, Real-Time 2D With Doppler And Color Completed Flow 08/23/2014 08883 EKG Tracing & Interpretation Completed 06/27/2014 03590 ECHO Transthoracic, Real-Time 2D With Doppler And Color Completed Flow 02/12/2014 68022 EKG Tracing & Interpretation Completed 04/16/2013 01495 EKG Tracing & Interpretation Completed 04/13/2013 94005 ECHO Transthoracic, Real-Time 2D With Doppler And Color Completed Flow Encounters Type Date Location Provider CPT E/M Dx Office Visit 03/06/2018 11:00a [facility] Jacqueline Monsivais N.Hair 67178 I49.3 I34.0 I10 I50.32 I34.2 R06.02 R07.9 Office Visit 08/19/2017 2:20p [facility] Denise Marquez M.D. 98787 I34.0 Household Manager I34.2 I10 I50.32 Office Visit 07/27/2016 9:45a [facility] Denise Marquez M.D. 21143 I50.32 Household Manager R06.02 I34.2 I10 Office Visit 01/15/2016 4:00p [facility] Denise Marquez M.D. 09633 I50.32 Household Manager R06.02 I34.2 Office Visit 10/17/2015 3:00p [facility] SUZI Jordan 67923TAY I34.1 I36.1 I48.0 I34.2 Office Visit 10/06/2015 10:00a [facility] Of Mi Marquez M.D. 75953 R06.02 [facility] I34.1 I50.32 R06.00 R53.83 I48.0 I36.1 Office Visit 09/11/2015 2:30p [facility] Of Mi Marquez M.D. 24891 R06.02 [facility] I34.1 I50.32 Office Visit 02/21/2015 9:00a [facility] Of Mi Marquez M.D. 55233 786.05 Household Manager 424.0 Office Visit 01/03/2015 10:45a [facility] Of Mi Marquez M.D. 30235 424.0 Household Manager 786.05 Office Visit 11/08/2014 10:30a [facility] SUZI Jordan 73520 424.0 786.05 428.0 782.3 Office Visit 08/23/2014 8:30a [facility] Of Mi Maqruez M.D. 51253 424.0 [facility] 428.1 427.31 786.05 Office Visit 06/03/2014 8:45a [facility] Of Mi Marquez M.D. 13104 424.0 [facility] 424.2 428.1 428.0 V15.88 427.31 Office Visit 02/12/2014 9:15a [facility] Of Mi Marquez M.D. 61198 424.0 [facility] 424.2 428.1 427.31 Office Visit 04/16/2013 2:00p [facility] Of Mi Marquez M.D. 54450 424.0 [facility] 726.19 786.05 Office Visit 12/01/2012 11:20a [facility] Thompson Messer M.D. 64553 446.5 Of Household Manager 239.3 Office Visit 06/05/2012 9:20a [facility] Thompson Messer M.D. 94404 446.5 Of [facility] 239.3 726.10 Office Visit 03/13/2012 9:00a [facility] Thompson Messer M.D. 07662 446.5 Of Household Manager 239.3 Office Visit 09/09/2011 9:40a [facility] Thompson Messer M.D. 03754 446.5 Of Household Manager 239.3 Office Visit 06/10/2011 10:00a [facility] Thompson Messer M.D. 98256 446.5 Of Household Manager 726.10 Office Visit 03/19/2011 11:00a [facility] Thompson Messer 82604 V04.81 Of Household Manager M.DCarlos 446.5 733.90 388.30 V58.69 Office Visit 01/07/2011 11:40a [facility] Thompson Messer M.D. 53818 446.5 Of Household Manager 727.3 733.90 Office Visit 11/18/2010 3:20p [facility] Thompson Messer M.D. 38102 446.5 Of Household Manager 446.5 726.0 726.0 Plan of Care Future Appointment(s):03/28/2018 9:00 am - Jacqueline Monsivais, N.P. at [facility]03/17/2018 9:00 am - Nurse Visit IC at [facility]03/16/2018 9:15 am - Nurse Visit IC at [facility]03/09/2018 11 :00 am - [facility] ECHO Schedule at [facility]03/14/2018 9:30 am - Mi Marquez M.D. at [facility]03/06/2018 - Jacqueline Monsivais, N.P.I49.3 Ventricular premature depolarizationNew Orders:Holter MonitorEchocardiogramComments:You are having extra beats.Follow up:2-3 weeks OV Jacqueline on day with LS in office after holter and echo/ ok if stress not complete. Tue Am,Janette or Tue PMRecommendations:WE need to look at heart function to see if this has worsened.I34.0 Nonrheumatic mitral (valve) [id number] Essential ( primary) zhsqtowjokskI77.32 Chronic diastolic (congestive) heart failureRecommendations:Take 1/2 spironolactone alternating with 2 tabs of 12.5m hydrochlorathiazide.I34.2 Nonrheumatic mitral (valve) leyzbxixC42.02 Shortness of breathNew Orders:Stress Test, Pharmacologic Nuclear (Lexiscan)R07.9 Chest pain, unspecified
[2018-03-07 12:08] LABS: EGFR Non-African American 57.3 (>60)
[2018-03-07] MEDS ORDERED: Magnesium Oxide TAB* 400 MG PO ONE (12:20)
[2018-03-07] MEDS ORDERED: Aspirin 81 mg CHEW TAB* 81 MG TAB.CHEW PO ONE (12:37)
[2018-03-07 12:57] LABS: ABS Basophils 0 10^3/ul (0-0.2); ABS Neutrophils 2.5 10^3/ul (1.5-7.7); ABS Neutrophils 2.6 10^3/ul (1.5-7.7); Monocytes % 11 % (0-7)
[2018-03-07] MEDS ORDERED: Furosemide IV* 10 MG/ML VIAL (40 MG) IV ONE (13:36)
[2018-03-07 14:36] LABS: Urine Appearance Clear; Urine Blood 1+ (Negative); Urine Color Yellow; Urine Ketones Negative (Negative); Urine Protein Negative (Negative); Urine Red Blood Cell 2+(6-10/hpf) (Absent); Urine Specific Gravity 1.012 (1.010-1.030); Urine Urobilinogen Negative (Negative); Urine White Blood Cell Trace(0-5/hpf) (Absent)
[2018-03-07] MEDS ORDERED: Magnesium Sulfate 1 GM IV* 1 GM/100 ML BAG IV ONE (15:31)
[2018-03-07] MEDS: Cyanocobalamin TAB* 500 MCG PO SCH (15:38)
--- NOTE | 2018-03-07 21:24 | HP ---
CC: Dr. Grajeda * ADMISSION HISTORY AND PHYSICAL: DATE OF ADMISSION: 03/07/18 PRIMARY CARE PROVIDER: Dr. Mi Grajeda. ATTENDING FOR THIS ADMISSION: Dr. Roxana Harmon. MY ATTENDING FOR TODAY: Dr. Roxana Harmon.* (DICTATED BY ANNELISE SHAH NP) CHIEF COMPLAINT: Chest pressure, dyspnea on exertion, and fatigue. HISTORY OF PRESENT ILLNESS: This is a very pleasant 82-year-old female, who presented on 03/06/18 to her cardiology office. She was seen by Jacqueline Monsivais NP. Dr. Mi Marquez is her primary lobsterman. Her initial chief complaint with lobsterman's office is similar to today. The patient states she was having some pounding sensation in her heart, chest pressure and bouts of diaphoresis. She said when she is at rest and everything settles down, she does feel better and less symptomatic. Her medications have been adjusted. She was taking hydrochlorothiazide and spironolactone for approximately 3 weeks. She was feeling like her symptoms were secondary to her medication changes, which was her initial reason for coming in to see the lobsterman. At that time, she was scheduled for an outpatient stress test for this and an echocardiogram for next week. Her medications was dose adjusted and she was sent back home. She presented in the emergency department today because her symptoms persisted, chest pressure was increasing, she was also feeling fatigued, weakness, anorexia and her granddaughter, who is at bedside, also noticed what she described as her vein throbbing in her right neck. Upon examination in the emergency department, it was found that her BNP was mildly elevated, which was up from her baseline at 403. She also had a low magnesium and persistent chest pressure. For these reasons, we were asked to evaluate the patient for admission. PAST MEDICAL HISTORY: Significant for chronic diastolic heart failure; history of atrial fibrillation; history of mitral valve disorder, status post repair; neoplasm of the breast; and giant cell arteritis. 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 The patient also had a stress test in 2015, stage 1 only, which showed no ischemia, mild PA pressure elevations at rest and moderate post exercise. Echocardiogram in 2014 showed ejection fraction of 55% to 60%, mitral valve status post repair with [id number]-[id number] mitral stenosis, mild mitral regurg, moderate tricuspid regurg, and PA pressure of 43 mmHg. MEDICATIONS AT HOME: Include: 1. Restasis eye drops 1 drop to both eyes 2 times a day. 2. Vitamin D 2000 units in the morning. 3. Vitamin B12 500 mcg every 3 days. 4. Aspirin 81 mg daily. 5. Spironolactone 12.5 mg every other day. 6. Hydrochlorothiazide 25 mg every other day. Of note, for the patient's paroxysmal AFib, she is not currently anticoagulated. ALLERGIES: The patient has no known drug allergies. FAMILY HISTORY: It looks like father of an [place] in his 80s. SOCIAL HISTORY: The patient does not drink, does not smoke. Denies any illicit drug use. REVIEW OF SYSTEMS: The patient denies any fever or chills. She does report fatigue, exertional dyspnea, some anorexia, weight loss over the past week. Denies any edema. No nausea or vomiting. No complaints and no further constitutional complaints. PHYSICAL EXAMINATION GENERAL: The patient is a well-appearing 82-year-old female, in no acute distress. VITAL SIGNS: Currently, blood pressure 147/88, heart rate 86, respiratory rate 18, O2 saturation 96% on room air with a temperature of 98.1. HEENT: The patient is atraumatic, normocephalic. PERRLA with nonicteric sclerae. Oral mucosa is moist. Tongue is midline. NECK: Supple, nontender. No carotid bruit auscultated. She does have a positive Kussmaul sign on the right, but does not exhibit JVD. LUNGS: Clear at the apices bilaterally with no wheezing or rhonchi. She is diminished at the bases with fine rales bilaterally. CARDIOVASCULAR: S1, S2 present. No gallops or rubs noted. She does have a grade 2/6 murmur. Currently on telemetry, she is having frequent either bigeminy or it looks like she is in trigeminy right now and otherwise sinus rhythm. ABDOMEN: Soft, nontender, and nondistended. Positive bowel sounds in all 4 quadrants. No organomegaly noted. : Deferred. MUSCULOSKELETAL: There is no clubbing, no cyanosis, and no pedal edema. She has +2 distal pulses palpable. Full range of motion. Gross motor and sensation are intact. She does have fatigue with ambulation, but otherwise has full range of motion. NEUROLOGIC: She is grossly intact with no focalities. PSYCHIATRIC: She is cooperative and appropriate. INTEGUMENTARY: Skin is warm, dry, and intact. DIAGNOSTIC STUDIES/LAB DATA: WBCs 6.3, RBCs 5.04, hemoglobin 14.9, hematocrit 44, platelets 103. Sodium 133, potassium 4.1, chloride 99, CO2 27, BUN 14, creatinine 0.94, GFR 57.3, glucose 123, lactic acid 1.2, calcium 9.2, magnesium 1.8. Bilirubin 0.60, AST 45, ALT 29, alk phos 176. CK-MB is 1.6. Troponin is negative at 0.01, pending second troponin at 2:30. BNP 403, BNP just yesterday was 290 and 169 in 2017. Protein 6.8, albumin 3.5, globulin 3.3. TSH is 3.51. INR is 1.01. Imaging: Chest x-ray dated 03/07/18 reveals hyperinflation of the lungs, cardiomegaly with no active cardiopulmonary disease. EKG dated 03/07/18 shows sinus rhythm with strings of bigeminy and trigeminy. IMPRESSION AND PLAN: This is a very pleasant 82-year-old female who has been experiencing intermittent chest pain and exertional dyspnea over the last couple of weeks with rapid progression over the last 24 hours, being admitted for chest pain rule out acute coronary syndrome. 1. Chest pressure and fatigue, rule out acute coronary syndrome. The patient was scheduled for an outpatient stress test for . We will order a nuclear stress test that will be done tomorrow morning. She will be kept n.p.o. after midnight in anticipation of this exam. 2. For her history of chronic diastolic heart failure, she was also scheduled for an outpatient echocardiogram that was supposed to happen next week. We will get the echo today to evaluate her valvular function. She does appear to be fluid overloaded, which is exhibited both by her dyspnea and her elevated BNP , which seems to be on the increase. She was only placed on spironolactone and hydrochlorothiazide in the office. We will hold those for now and give her Lasix 40 mg IV to try to achieve euvolemia. The echocardiogram to evaluate her valves and her mitral valve repair in particular and also ejection fraction. Given her elevated LFTs, her Kussmaul sign and current exertional dyspnea, I am concerned more for a right-sided heart failure at this point. 3. For her hypomagnesemia, she has already been repleted with 80 mg p.o. once. We will recheck her mag in the morning and replete as necessary. She is having some obvious ventricular ectopy. In consideration of this, we may give her 1 g of magnesium IV to reduce some of the burden on her ventricles. 4. At this point, we can continue her regularly scheduled medications of aspirin, vitamin D, and vitamin B12. I suspect Cardiology will see her likely tomorrow after her diagnostics are complete. We will reach out to Cardiology for formal consult after she has had her echo and her stress test to explain those results to her and her family. The rest of the patient's course will be determined by further diagnostics, laboratories, and any other input from other providers as warranted during this admission. 5. For DVT prophylaxis, the patient should be on heparin 5000 q.8 hours. 6. Diet: Heart-healthy diet now and then n.p.o. after midnight. 7. For activity, she can be out of bed to commode as tolerated. 8. Disposition: The patient has been admitted to observation. ANNELISE SHAH, GALLO [id number]/[facility] #: [id number] THIERRY
[2018-03-08 07:32] LABS: Hematocrit 44 % (35-47); Hemoglobin 15.1 g/dl (12.0-16.0); Mean Corpuscular HGB Conc 34 g/dl (31-36); Mean Corpuscular Hemoglobin 30 pg (27-31); Mean Corpuscular Volume 88 fL (80-97); Mean Platelet Volume 9.2 um3 (7.4-10.4); Platelet Count 102 10^3/ul (150-450); Red Blood Count 5.05 10^6/ul (4.00-5.40); Red Cell Distribution Width 14 % (10.5-15); White Blood Count 5.9 10^3/ul (3.5-10.8)
[2018-03-08 07:50] LABS: EGFR Non-African American 65.2 (>60)
[2018-03-08 08:09] LABS: ABS Basophils 0 10^3/ul (0-0.2); ABS Eosinophils 0 10^3/ul (0-0.6); ABS Lymphocytes 2.6 10^3/ul (1.0-4.8); ABS Monocytes 0.6 10^3/ul (0-0.8); ABS Neutrophils 2.7 10^3/ul (1.5-7.7); ABS Nucleated RBC 0 10^3/ul; Eosinophil % 0.3 % (0-6); Lymphocyte % 43.7 % (25-47); Nucleated Red Blood Cells % 0
[2018-03-08] MEDS: Aspirin EC TAB* 81 MG TAB.EC PO SCH (08:45)
[2018-03-08] MEDS: Cholecalciferol TAB* 1000 UNITS PO SCH (08:45)
[2018-03-08] MEDS ORDERED: Regadenoson* 0.4 MG/5 ML SYRINGE ONE (13:39)
--- NOTE | 2018-03-08 13:50 | RAD ---
Edited for charges. Indication: Chest pressure. Myocardial perfusion scan was performed utilizing 1 day protocol. Rest myocardial perfusion was performed after intravenous injection of 10.8 mCi of technetium 99m tetrofosmin. Pharmacological stress was performed and 25.2 mCi of technetium 99 and tetrofosmin was injected. There is homogeneous distribution of the radiotracer throughout the left ventricle. The left ventricle appears normal in size. There is no evidence of fixed or reversible perfusion defect identified. The ejection fraction at stress is 69%. Evaluation of wall motion demonstrates no focal wall motion abnormality. IMPRESSION: No evidence of fixed or reversible perfusion defects are identified. ASSESSMENT: Low risk Based on imaging criteria from ACC/AHA 2002 Guideline Update for the Management of Patients With Chronic Stable Angina Table 23. Noninvasive Risk Stratification. MTDD
[2018-03-08] MEDS ORDERED: Furosemide IV* 10 MG/ML 2 ML VIAL (20 MG) IV ONE (15:44)
--- NOTE | 2018-03-08 16:59 | ECHO ---
Patient: Edie STEWART [facility] Rec#: [id number] : 1935 Date: 03/08/2018 Age: 82y Height: 154.94 cm / 61.0 in Weight: 57.15 kg / 126.0 lbs Sex: F BSA: 1.55 Room#: [facility] Admit Date#: 03/07/2018 Type: Inpatient Referring: Shanti Delgado Reading: Mi Marquez MD Clinic [facility] Cma: [facility] TENZIN CC: Mi Grajeda MD Transthoracic Echocardiogram Indication: Chest Pain BP: 125/65 HR: 90 Rhythm: NSR with PVCs Findings History: Chest heaviness,s/p MV repair approx. 10 years ago,HTN,CHF,right breast cancer s/p chemo and rad.rx. Technical Comments: The study quality is good. Completed at 1451. Left Ventricle: The left ventricular chamber size is decreased. Mild concentric left ventricular hypertrophy is observed. There is no evidence of left ventricular asymmetrical hypertrophy. Septal wall hypertrophy is observed. Global left ventricular wall motion and contractility are within normal limits. The estimated ejection fraction is 55-60%. The assessment of diastolic function is non-diagnostic. The left ventricular diastolic filling pattern is consistent with elevated left ventricular end-diastolic pressure. Left Atrium: The left atrium is moderately dilated. Right Ventricle: The right ventricular cavity size is normal. The right ventricular global systolic function is normal. The septum has abnormal paradoxical motion consistent with post-operative pressure. Right Atrium: The right atrial cavity size is normal. Aortic Valve: The aortic valve is trileaflet. The aortic valve leaflets are mildly thickened. Systolic excursion of the aortic valve is normal. There is mild aortic regurgitation. There is no evidence of aortic stenosis. Mitral Valve: The mitral valve leaflets are moderately thickened. There is trace to mild mitral regurgitation. There is mild mitral stenosis. The mean gradient across the mitral valve is 4.78 mmHg. The pressure half time of the mitral valve is 83 msec. Mitral valve repair functioning abnormally. Tricuspid Valve: The tricuspid valve leaflets are normal. There is moderate to severe tricuspid regurgitation. The tricuspid regurgitant jet is wall impinging. There is evidence of mild to moderate pulmonary hypertension. There is no tricuspid stenosis. Pulmonic Valve: The pulmonic valve appears normal. There is a trace pulmonic regurgitation. There is no pulmonic stenosis. Pericardium: A pericardial fat pad is visualized. Aorta: There is mild dilatation of the ascending aorta. There is no dilatation of the aortic arch. There is mild dilatation of the aortic root. Pulmonary Artery: The main pulmonary artery appears normal. Venous: The inferior vena cava appears normal in size. There is a greater than 50% respiratory change in the inferior vena cava dimension. Conclusions The left ventricular chamber size is decreased. Mild concentric left ventricular hypertrophy is observed. Global left ventricular wall motion and contractility are within normal limits. The estimated ejection fraction is 55-60%. Evidence of elevated LVEDP based on E/e'. The right ventricular cavity size is normal. The aortic valve leaflets are mildly thickened. There is mild aortic regurgitation. Mitral valve repair functioning abnormally. anterior leaflet is thickened and mild decrease in mobility. There is trace to mild mitral regurgitation. There is mild mitral stenosis: mean gradient across the mitral valve is 4.78 mmHg, pressure half time of the mitral valve is 83 msec. There is moderate to severe tricuspid regurgitation. There is evidence of mild to moderate pulmonary hypertension, estimated at 44 mmHg, possbly underestimated. Compared with prior echo of 10/25/15, small LV chamber diameter and LVH are new, LVEF is stable, AI is stable, mean gradient across the mitral valve is stable, TR is stable, PA pressure stable. Frequent PVC's throughout the study. Measurements Name Value Normal Range RVIDd (AP) 2D 2.8 cm (0.9 - 2.6) RVDdMajor (2D) 4 cm (2.2 - 4.4) RAd ISD 4CH 4.8 cm (3.4 - 4.9) RA (A4C)W 3.7 cm (2.9 - 4.6) IVSd (2D) 1.5 cm (0.6 - 1) LVPWd (2D) 1.2 cm (0.6 - 1) LVIDd (2D) 3 cm (3.6 - 5.4) LVIDs (2D) 2.3 cm - LVIDs (2D) index 1 cm/m2 - LV FS (2D) 23 % (25 - 45) EF Teichholz (2D) 48 % - Aortic Annulus 1.5 cm (1.4 - 2.6) Ao root diameter (2D) 3.6 cm (2.1 - 3.5) Ascending Ao 3.5 cm (2.1 - 3.4) Aortic arch 2.2 cm (1.8 - 3.4) Descending Ao 0.4 cm - LA dimension (AP) 2D 4.4 cm (2.3 - 3.8) LAd ISD 4CH 5.5 cm (2.9 - 5.3) LA ISD 4CH W 4.6 cm (2.5 - 4.5) LA dimension (2D) index 2.8 cm/m2 - Name Value Normal Range LA ESV SP 4CH (A/L) 62 ml - LA ESV SP 2CH (A/L) 68 ml - LA ESV SP 4CH (MOD) 57 ml - LA ESV SP 2CH (MOD) 65 ml - Name Value Normal Range MV E-wave Vmax 1.6 m/sec - MV deceleration time 378 msec - MV A-wave Vmax 1.5 m/sec - MV E:A ratio 1.07 ratio - LV septal e' Vmax 0.04 m/sec - LV lateral e' Vmax 0.1 m/sec - LV E:e' septal ratio 40 ratio - LV E:e' lateral ratio 16 ratio - Name Value Normal Range AV Vmax 1 m/sec - AV VTI 20.4 cm - AV peak gradient 4 mmHg - AV mean gradient 1.74 mmHg - LVOT diameter 1.8 cm - LVOT Vmax 0.8 m/sec - LVOT VTI 16.9 cm - LVOT peak gradient 2.55 mmHg - LVOT mean gradient 1.07 mmHg - AR PHT 467 msec - AR peak gradient 41.94 mmHg - Name Value Normal Range MV Vmax 1.6 m/sec - MV VTI 42.7 cm - MV peak gradient 10.24 mmHg - MV mean gradient 4.78 mmHg - MV PHT 83 msec - MVA (PHT) 2.7 cm2 - MVA (continuity VTI) 1 cm2 - Name Value Normal Range TR Vmax 3.2 m/sec - TR peak gradient 41 mmHg - RAP 3 mmHg - RVSP 44 mmHg - IVC diameter 1.3 cm - Name Value Normal Range PV Vmax 0.7 m/sec - PV peak gradient 1.96 mmHg -
--- NOTE | 2018-03-08 17:57 | PN ---
Subjective Date of Service: 03/08/18 Interval History: Patient seen and examined. Patient states she is still winded with ambulation, however she notes she feels less puffy. Still becomes dyspneic with any exertion. Denies overt chest pain. No further complaints. Extensive discussion with family regarding POC and testing. At the time of exam, ECHO read is pending and stress is Low Risk. Objective Active Medications: Aspirin (Aspirin Ec Tab*) [address] [place] Last Admin: 03/08/18 08:45 Dose: 81 mg Cholecalciferol (Vitamin D Tab*) 2,000 units PO QAM [facility] Last Admin: 03/08/18 08:45 Dose: 2,000 units Cyanocobalamin (Vitamin B12 Tab*) 500 mcg PO Q72H [facility] Last Admin: 03/07/18 15:38 Dose: Not Given Vital Signs - 8 hr 03/08/18 03/08/18 03/08/18 11:31 11:33 15:49 Temperature 97.9 F 98.0 F Pulse Rate 78 80 Respiratory 18 16 Rate Blood Pressure 146/71 147/72 (mmHg) O2 Sat by Pulse 18 97 Oximetry Oxygen Devices in Use Now: None Appearance: Alert, appears comfortable in bed Eyes: No Scleral Icterus, PERRLA Ears/Nose/Mouth/Throat: NL Teeth, Lips, Gums, Mucous Membranes Moist Neck: NL Appearance and Movements; NL JVP, Trachea Midline Respiratory: Symmetrical Chest Expansion and Respiratory Effort, - - diminished bilaterally, no rhonchi or rales Cardiovascular: NL Sounds; No Murmurs; No JVD, No Edema, - - Kussmauls sign improved Abdominal: NL Sounds; No Tenderness; No Distention Extremities: No Clubbing, Cyanosis Skin: No Rash or Ulcers Neurological: Alert and Oriented x 3, NL Sensation Nutrition: Taking PO's Result Diagrams: 03/08/18 07:14 03/08/18 07:14 Microbiology and Other Data: Microbiology 03/07/18 14:13 Urine Culture - Preliminary Urine Escherichia Coli Diagnostic Imaging: Patient Name: Edie STEWART Medical Record#: [id number] Ordering Physician: Shanti Esquivel NP Acct.#: [id number] : 1935 Age: 82 Sex: F Location: [address] [place] [address]/[place]LE[place] Exam Date: 03/08/18 1334 ADM Status: ADM Shyla Order Information: NUCLEAR CARDIAC STRESS TEST Accession Number: [id number] CPT: 30033 Indication: Chest pressure. Myocardial perfusion scan was performed utilizing 1 day protocol. Rest myocardial perfusion was performed after intravenous injection of 10.8 mCi of technetium 99m tetrofosmin. Pharmacological stress was performed and 25.2 mCi of technetium 99 and tetrofosmin was injected. There is homogeneous distribution of the radiotracer throughout the left ventricle. The left ventricle appears normal in size. There is no evidence of fixed or reversible perfusion defect identified. The ejection fraction at stress is 69%. Evaluation of wall motion demonstrates no focal wall motion abnormality. IMPRESSION: No evidence of fixed or reversible perfusion defects are identified. ASSESSMENT: Low risk Based on imaging criteria from ACC/AHA 2002 Guideline Update for the Management of Patients With Chronic Stable Angina Table 23. Noninvasive Risk Stratification. <Electronically signed by Cely Gamez MD in OV> 03/08/18 1347 Dictated By: Cely Gamez MD Dictated Date/Time: 03/08/18 1347 Transcribed Date/Time: 03/08/18 1343 Copy to: CARDIAC ECHO: Conclusions The left ventricular chamber size is decreased. Mild concentric left ventricular hypertrophy is observed. Global left ventricular wall motion and contractility are within normal limits. The estimated ejection fraction is 55-60%. Evidence of elevated LVEDP based on E/e'. The right ventricular cavity size is normal. The aortic valve leaflets are mildly thickened. There is mild aortic regurgitation. Mitral valve repair functioning abnormally. anterior leaflet is thickened and mild decrease in mobility. There is trace to mild mitral regurgitation. There is mild mitral stenosis: mean gradient across the mitral valve is 4.78 mmHg, pressure half time of the mitral valve is 83 msec. There is moderate to severe tricuspid regurgitation. There is evidence of mild to moderate pulmonary hypertension, estimated at 44 mmHg, possbly underestimated. Compared with prior echo of 10/25/15, small LV chamber diameter and LVH are new, LVEF is stable, AI is stable, mean gradient across the mitral valve is stable, TR is stable, PA pressure stable. Frequent PVC's throughout the study. Assess/Plan/Problems-Billing Assessment: This is an 82-year-old female who has been experiencing intermittent chest pain and exertional dyspnea over the last couple of weeks with rapid progression over the last 24 hours, being admitted for chest pain rule out acute coronary syndrome. - Patient Problems (1) Chest pressure Code(s): R07.89 - OTHER CHEST PAIN SNOMED Code(s): 340442470 Comment: - Likely 2/2 heart failure and valvular disease - Cardiology consulted - ECHO and stress as above - Continue ASA - Appreciate recs from cardiology (2) SOB (shortness of breath) Code(s): R06.02 - SHORTNESS OF BREATH SNOMED Code(s): 610879613 Comment: - Likely 2/2 fluid overload and failure - Responding well to lasix, will continue to achieve euvolemia (3) Hypomagnesemia Code(s): E83.42 - HYPOMAGNESEMIA SNOMED Code(s): 085525496 Comment: - In presence of PVCs - Repleted - Monitor (4) PVCs (premature ventricular contractions) Code(s): I49.3 - VENTRICULAR PREMATURE DEPOLARIZATION SNOMED Code(s): 54775339 Comment: - Etiology unclear, likely valvular disease - Plan for MERRILL tomorrow with Dr. Marquez (5) Chronic diastolic (congestive) heart failure Code(s): I50.32 - CHRONIC DIASTOLIC (CONGESTIVE) HEART FAILURE SNOMED Code(s) : 281671058 Comment: - As above, acute on chronic - Continue diuresis and medical management - Pending MERRILL - Repeat BNP in AM (6) History of mitral valve repair Code(s): Z98.890 - OTHER SPECIFIED POSTPROCEDURAL STATES SNOMED Code(s): 546851873 Comment: - MERRILL tomorrow to evaluate valve Status and Disposition: Remain inpatient. Physical therapy eval in AM after MERRILL likely will need STR.
[2018-03-09] MEDS ORDERED: Naloxone* 0.4 MG/ML 1 ML VIAL ONE (10:48)
[2018-03-09] MEDS ORDERED: Flumazenil* 0.1 MG/ML 5 ML MDV ONE (10:48)
[2018-03-09] MEDS ORDERED: fentaNYL* 50 MCG/ML 2 ML VIAL (100 MCG VIAL) ONE (10:48)
[2018-03-09] MEDS ORDERED: Midazolam* 1 MG/ML 10 ML VIAL (10 MG) ONE (10:49)
[2018-03-09] MEDS ORDERED: Lidocaine 2% VISCOUS* 15 ML UDC ONE (10:49)
[2018-03-09] MEDS: Cholecalciferol TAB* 1000 UNITS PO SCH (15:32)
[2018-03-09] MEDS: Aspirin EC TAB* 81 MG TAB.EC PO SCH (15:32)
[2018-03-09] MEDS: Levofloxacin TAB* 500 MG PO SCH (15:32)
[2018-03-09] MEDS ORDERED: Magnesium Hydroxide LIQ* 30 ML UDC PO PRN (19:46)
[2018-03-09] MEDS ORDERED: Docusate CAP* 100 MG PO PRN (19:47)
--- NOTE | 2018-03-09 20:37 | PN ---
Subjective Date of Service: 03/09/18 Interval History: Patient seen and examined. Feeling better, discussed UTI and initiation of levaquin. Pending cardiac testing results. Patient denies SOB, no chest pain/ pressure. No fevers or chills. Objective Active Medications: Aspirin (Aspirin Ec Tab*) 81 mg PO QAM [facility] Last Admin: 03/09/18 15:32 Dose: 81 mg Cholecalciferol (Vitamin D Tab*) 2,000 units PO QAM [facility] Last Admin: 03/09/18 15:32 Dose: 2,000 units Cyanocobalamin (Vitamin B12 Tab*) 500 mcg PO Q72H [facility] Last Admin: 03/07/18 15:38 Dose: Not Given Docusate Sodium (Colace Cap*) 100 mg PO BID PRN PRN Reason: CONSTIPATION Last Admin: 03/09/18 19:56 Dose: 100 mg Levofloxacin (Levaquin Tab*) 500 mg PO Q24H [facility] Last Admin: 03/09/18 15:32 Dose: 500 mg Magnesium Hydroxide (Milk Of Magnesia Liq*) 30 ml PO BID PRN PRN Reason: CONSTIPATION Last Admin: 03/09/18 19:55 Dose: 30 ml Vital Signs - 8 hr 03/09/18 03/09/18 15:11 19:28 Temperature 98.0 F Pulse Rate 80 Respiratory 20 14 Rate Blood Pressure 120/69 (mmHg) O2 Sat by Pulse 98 Oximetry Oxygen Devices in Use Now: None Appearance: alert, NAD Eyes: PERRLA Ears/Nose/Mouth/Throat: NL Teeth, Lips, Gums, Mucous Membranes Moist Neck: NL Appearance and Movements; NL JVP, Trachea Midline Respiratory: Symmetrical Chest Expansion and Respiratory Effort, Clear to Auscultation, - - diminished bases Cardiovascular: NL Sounds; No Murmurs; No JVD, RRR, No Edema Abdominal: NL Sounds; No Tenderness; No Distention Extremities: No Edema, No Clubbing, Cyanosis Neurological: Alert and Oriented x 3, - - weakness, general Nutrition: Taking PO's Result Diagrams: 03/08/18 07:14 03/08/18 07:14 Microbiology and Other Data: Microbiology 03/07/18 14:13 Urine Culture - Preliminary Urine Escherichia Coli Diagnostic Imaging: Patient Name: Edie STEWART Medical Record#: [id number] Ordering Physician: Shanti Esquivel NP Acct.#: [id number] : 1935 Age: 82 Sex: F Location: [address] [place] [address] MEDICAL/TELEMETRY Exam Date: 03/08/181333 ADM Status: ADM Shyla Order Information: NUCLEAR CARDIAC STRESS TEST Accession Number: [id number] CPT: 90650 Indication: Chest pressure. Myocardial perfusion scan was performed utilizing 1 day protocol. Rest myocardial perfusion was performed after intravenous injection of 10.8 mCi of technetium 99m tetrofosmin. Pharmacological stress was performed and 25.2 mCi of technetium 99 and tetrofosmin was injected. There is homogeneous distribution of the radiotracer throughout the left ventricle. The left ventricle appears normal in size. There is no evidence of fixed or reversible perfusion defect identified. The ejection fraction at stress is 69%. Evaluation of wall motion demonstrates no focal wall motion abnormality. IMPRESSION: No evidence of fixed or reversible perfusion defects are identified. ASSESSMENT: Low risk Based on imaging criteria from ACC/AHA 2002 Guideline Update for the Management of Patients With Chronic Stable Angina Table 23. Noninvasive Risk Stratification. <Electronically signed by Cely Gamez MD in OV> 03/08/18 1347 Dictated By: Cely Gamez MD Dictated Date/Time: 03/08/18 1347 Transcribed Date/Time: 03/08/18 1343 Copy to: CARDIAC ECHO: Conclusions The left ventricular chamber size is decreased. Mild concentric left ventricular hypertrophy is observed. Global left ventricular wall motion and contractility are within normal limits. The estimated ejection fraction is 55-60%. Evidence of elevated LVEDP based on E/e'. The right ventricular cavity size is normal. The aortic valve leaflets are mildly thickened. There is mild aortic regurgitation. Mitral valve repair functioning abnormally. anterior leaflet is thickened and mild decrease in mobility. There is trace to mild mitral regurgitation. There is mild mitral stenosis: mean gradient across the mitral valve is 4.78 mmHg, pressure half time of the mitral valve is 83 msec. There is moderate to severe tricuspid regurgitation. There is evidence of mild to moderate pulmonary hypertension, estimated at 44 mmHg, possbly underestimated. Compared with prior echo of 10/25/15, small LV chamber diameter and LVH are new, LVEF is stable, AI is stable, mean gradient across the mitral valve is stable, TR is stable, PA pressure stable. Frequent PVC's throughout the study. Assess/Plan/Problems-Billing Assessment: This is an 82-year-old female who has been experiencing intermittent chest pain and exertional dyspnea over the last couple of weeks with rapid progression over the last 24 hours, being admitted for chest pain rule out acute coronary syndrome. - Patient Problems (1) Chest pressure Code(s): R07.89 - OTHER CHEST PAIN SNOMED Code(s): 893878209 Comment: - Likely 2/2 heart failure and valvular disease - Cardiology following - ECHO and stress as above - Continue ASA - ECHO and stress completed - Follow MERRILL results, appreciate recs from cardiology (2) SOB (shortness of breath) Code(s): R06.02 - SHORTNESS OF BREATH SNOMED Code(s): 437530972 Comment: - Likely 2/2 fluid overload and failure - Responding well to lasix - Appears euvolemic today, hold lasix and re-assess in AM - May be able to restart home diuretics tomorrow, check with cardio if any changes recommended (3) Hypomagnesemia Code(s): E83.42 - HYPOMAGNESEMIA SNOMED Code(s): 373733734 Comment: - In presence of PVCs - Repleted - Monitor (4) PVCs (premature ventricular contractions) Code(s): I49.3 - VENTRICULAR PREMATURE DEPOLARIZATION SNOMED Code(s): 24777974 Comment: - Etiology unclear, likely valvular disease - Pending MERRILL with Dr. Marquez (5) Chronic diastolic (congestive) heart failure Code(s): I50.32 - CHRONIC DIASTOLIC (CONGESTIVE) HEART FAILURE SNOMED Code(s) : 054638788 Comment: - As above, acute on chronic - Continue diuresis and medical management (6) History of mitral valve repair Code(s): Z98.890 - OTHER SPECIFIED POSTPROCEDURAL STATES SNOMED Code(s): 181418255 Comment: - TTE as above, pending MERRILL to evaluate valve Status and Disposition: Remain inpatient. Appreciate PT recs and cardio input.
--- NOTE | 2018-03-10 08:37 | TEE ---
Patient: Edie STEWART [facility] Rec#: [id number] : 1935 Date: 03/09/2018 Age: 82y Height: 154.94 cm / 61.0 in Weight: 57.15 kg / 126.0 lbs Sex: F BSA: 1.55 Room#: [facility] Admit Date#: 03/07/2018 Type: Inpatient Referring: Shanti Delgado Performing: Mi Marquez MD Reading: Mi Marquez MD [employer] Lead Teacher: Lorelei Lopez RDCS Nurse: Mariela Diaz RN CC: Mi Grajeda MD Transesophageal Echocardiogram Indication: Dyspnea, mitral valve repair. BP: 119/66 HR: 80 Rhythm: NSR with PVCs Findings History: MV repair approximately 10 years ago, HTN, CHF, right breast cancer s/p chemotherapy and radiation. Technical Comments: The study quality is good. Left Ventricle: The left ventricular chamber size is normal. Mild concentric left ventricular hypertrophy is observed. There is normal left ventricular systolic function. The estimated ejection fraction is 55-60%. Post surgical hypokinesis of the interventricular septum is observed consistent with valve replacement. The left ventricular diastolic filling pattern is consistent with elevated left ventricular end-diastolic pressure. Left Atrium: The left atrium is moderately dilated. The left atrial appendage velocity is normal. No thrombus is visualized within the left atrium. There is no thrombus visualized in the left atrial appendage. Right Ventricle: The right ventricular cavity size is normal. The right ventricular global systolic function is normal. The septum has abnormal paradoxical motion consistent with post-operative pressure. Right Atrium: The right atrial cavity size is normal. Interatrial septum appears intact without evidence of shunting. The bubble study is negative. A patent foramen ovale is not demonstrated with color Doppler and agitated contrast. Aortic Valve: The aortic valve is trileaflet. The aortic valve leaflets are mildly thickened. There is a trace of aortic regurgitation. There is no evidence of aortic stenosis. Mitral Valve: The mitral valve leaflets are moderately thickened. There is a trace of mitral regurgitation. There is mild mitral stenosis. The mean gradient across the mitral valve is 4 mmHg. The peak gradient across the mitral valve is 8 mmHg. The mitral valve area, by pressure half time, is calculated at 2.3 cm2. Mitral valve repair functioning abnormally. Tricuspid Valve: The tricuspid valve leaflets are mildly thickened. There is moderate to severe tricuspid regurgitation. The right ventricular systolic pressure is estimated at 37 mmHg. There is evidence that pulmonary hypertension may be underestimated. There is no tricuspid stenosis. Pulmonic Valve: The pulmonic valve appears normal. There is a trace pulmonic regurgitation. There is no pulmonic stenosis. Pericardium: There is no significant pericardial effusion. Aorta: There is no dilatation of the ascending aorta. The aortic root is normal in size. There is plaque visualized in the ascending aorta.Unable to obtain adequate 2D imaging of aortic arch and descending aorta. Pulmonary Artery: The main pulmonary artery appears normal. Venous: The bicaval view was obtained and appears normal. The pulmonary veins appear normal in size.3 of 4 visualized. MERRILL Procedures: All standard views were attempted within the limitations of patient tolerance and safety. History and physical as well as labs were reviewed. The patient was in a fasting state. Risks and benefits of the procedure, including alternatives, were discussed and written informed consent was obtained. The patient and/or their health care logistics service representative expressed understanding of the procedure, risks and benefits. Baseline and continuous monitoring of blood pressure, heart rate, pulse oximetry and heart rhythm was performed throughout the procedure. The appropriate time-out procedure was performed as per [facility] protocol. The patient was placed in the left lateral decubitus position. The patient's posterior pharynx was anesthetized with 20ml of 2% viscous lidocaine. The patient received IV Midazolam with a total dose of 5 mg. The patient received IV Fentanyl with a total dose of 50 mcg. An oral bite block was inserted for protection of oral dentition. The multiplane transesophageal echocardiogram probe was inserted through the posterior oropharynx and advanced into the esophagus without difficulty. Multiple 2D images were obtained of the heart and its related structures. Color flow Doppler was used for evaluation. Spectral Doppler was also used. The atrial septum was interrogated with color flow Doppler. At the conclusion of the procedure the probe was removed with continuous suction without complications. The patient tolerated the procedure with no apparent complications. Contrast: Normal saline was used as contrast for the bubble study. Image 49. Intravenous contrast was used to help determine presence of intracardiac shunting. Conclusions Mild concentric left ventricular hypertrophy is observed. There is normal left ventricular systolic function. The estimated ejection fraction is 55-60%. The left ventricular diastolic filling pattern is consistent with elevated left ventricular end-diastolic pressure. The left atrium is moderately dilated. The right ventricular global systolic function is normal. The aortic valve leaflets are mildly thickened. There is a trace of aortic regurgitation. Mitral valve repair functioning abnormally. There is a trace of mitral regurgitation. There is mild mitral stenosis by P 1/2 method and mean gradient. Mitral stensosi is severe using continuity equation (0.85 cm2). The mean gradient across the mitral valve is 4 mmHg. The mitral valve area, by pressure half time, is calculated at 2.3 cm2. There is moderate to severe tricuspid regurgitation. The right ventricular systolic pressure is estimated at 37 mmHg, note pulmonary hypertension may be underestimated due to the degree of TR. Measurements Name Value Normal Range RVIDd (AP) 2D 2.6 cm (0.9 - 2.6) IVSd (2D) 1.2 cm (0.6 - 1) LVPWd (2D) 1.2 cm (0.6 - 1) LVIDd (2D) 4 cm (3.6 - 5.4) LVIDs (2D) 3.1 cm - LV FS (2D) 22 % (25 - 45) Aortic Annulus 2.1 cm (1.4 - 2.6) Ao root diameter (2D) 3 cm (2.1 - 3.5) Ascending Ao 3.3 cm (2.1 - 3.4) Name Value Normal Range MV E-wave Vmax 1 m/sec - MV deceleration time 311.48 msec - MV A-wave Vmax 0.79 m/sec - MV E:A ratio 1.26 ratio - Name Value Normal Range LVOT diameter 2 cm - LVOT Vmax 0.6 m/sec - LVOT VTI 8.65 cm - LVOT peak gradient 1 mmHg - LVOT mean gradient 1 mmHg - Name Value Normal Range MV Vmax 1.4 m/sec - MV VTI 32.1 cm - MV peak gradient 8 mmHg - MV mean gradient 4 mmHg - MV PHT 95 msec - MVA (PHT) 2.3 cm2 - MVA (continuity VTI) 0.85 cm2 - Name Value Normal Range TR Vmax 2.7 m/sec - TR peak gradient 27 mmHg - RAP 8 mmHg - RVSP 37 mmHg -
[2018-03-10] MEDS: Aspirin EC TAB* 81 MG TAB.EC PO SCH (09:06)
[2018-03-10] MEDS: Cholecalciferol TAB* 1000 UNITS PO SCH (09:06)
[2018-03-10] MEDS: Levofloxacin TAB* 500 MG PO SCH (11:07)
[2018-03-10] MEDS: Cyanocobalamin TAB* 500 MCG PO SCH (13:07)
--- NOTE | 2018-03-10 13:20 | PN ---
Subjective Date of Service: 03/10/18 Interval History: Mr. Craft reports that she is feeling somewhat better today. She continues to have some shortness of breath with mobility and to be exhausted but has noted some improvement in both parameters. She denies chest pain, edema, nausea , or abdominal pain. Objective Active Medications: Aspirin (Aspirin Ec Tab*) 81 mg PO QAM [facility] Cholecalciferol (Vitamin D Tab*) 2,000 units PO QAM [facility] Cyanocobalamin (Vitamin B12 Tab*) 500 mcg PO Q72H [facility] Docusate Sodium (Colace Cap*) 100 mg PO BID PRN Levofloxacin (Levaquin Tab*) 500 mg PO Q24H [facility] Magnesium Hydroxide (Milk Of Magnesia Liq*) 30 ml PO BID PRN Vital Signs: Temp Pulse Resp BP Pulse Ox 97.5 F 84 16 127/73 97 03/10/18 11:23 03/10/18 11:23 03/10/18 11:23 03/10/18 11:23 03/10/18 11:23 Oxygen Devices in Use Now: None Appearance: Female lying in bed in NAD Eyes: No Scleral Icterus Ears/Nose/Mouth/Throat: Mucous Membranes Moist Neck: Trachea Midline Respiratory: Symmetrical Chest Expansion and Respiratory Effort, Clear to Auscultation Cardiovascular: NL Sounds; No Murmurs; No JVD, No Edema Abdominal: NL Sounds; No Tenderness; No Distention Lymphatic: No Cervical Adenopathy Extremities: No Edema Skin: No Rash or Ulcers Neurological: Alert and Oriented x 3, NL Muscle Strength and Tone Nutrition: Taking PO's Result Diagrams: 03/08/18 07:14 03/08/18 07:14 Diagnostic Imaging: . Assess/Plan/Problems-Billing Assessment: This is an 82-year-old female who has been experiencing intermittent chest pain and exertional dyspnea over the last couple of weeks with rapid progression over the last 24 hours, being admitted for chest pain rule out acute coronary syndrome. - Patient Problems (1) Chest pressure Comment: - Likely 2/2 heart failure and valvular disease - Cardiology following. TTE shows mitral valve repair functioning abnormally with moderate to severe tricuspid regurgitation. MERRILL confirms that there is only mild mitral stenosis. Stress test low risk. - Continue ASA - Resume home hctz and spironolactone every other day. (2) Chronic diastolic (congestive) heart failure Comment: - As above, acute on chronic - Resume home meds, monitor. (3) History of mitral valve repair Comment: - MERRILL confirms mild mitral stenosis only. (4) UTI (urinary tract infection) Comment: - Switched to amoxicillin based on sensitivities from urine culture. (5) Hypomagnesemia Comment: - In presence of PVCs - Repleted - Monitor (6) PVCs (premature ventricular contractions) Comment: - Etiology unclear, likely valvular disease (7) SOB (shortness of breath) Comment: - Likely 2/2 fluid overload and failure - Responding well to lasix, appears euvolemic today - Restart home meds and monitor, (8) DVT prophylaxis Comment: - Ambulate. (9) Full code status Comment: Status and Disposition: Remain inpatient. .
[2018-03-10] MEDS: Amoxicillin PO (*) 500 MG CAP PO SCH (19:46)
--- NOTE | 2018-03-11 07:45 | PN ---
Subjective Date of Service: 03/11/18 Interval History: Ms. Craft reports feeling well today and is eager for discharge to home. She denies chest pain or SOB and is ambulating on the unit independently. She does not feel 100% but is much better than on arrival. Objective Active Medications: Amoxicillin (Amoxicillin Po (*)) 500 mg PO TID [facility] Aspirin (Aspirin Ec Tab*) 81 mg PO QAM [facility] Cholecalciferol (Vitamin D Tab*) 2,000 units PO QAM [facility] Cyanocobalamin (Vitamin B12 Tab*) 500 mcg PO Q72H [facility] Docusate Sodium (Colace Cap*) 100 mg PO BID PRN Hydrochlorothiazide (Hydrodiuril Tab*) 25 mg PO EVERY OTHER DAY [facility] Magnesium Hydroxide (Milk Of Magnesia Liq*) 30 ml PO BID PRN Spironolactone (Aldactone Tab*) 12.5 mg PO EVERY OTHER DAY [facility] Vital Signs - 8 hr 03/11/18 03/11/18 03:16 06:15 Temperature 99.3 F Pulse Rate 77 Respiratory 16 16 Rate Blood Pressure 123/68 (mmHg) O2 Sat by Pulse 97 Oximetry Oxygen Devices in Use Now: None Appearance: Elderly female lying in bed in [facility], at bedside Eyes: No Scleral Icterus Ears/Nose/Mouth/Throat: Mucous Membranes Moist Neck: Trachea Midline Respiratory: Symmetrical Chest Expansion and Respiratory Effort, Clear to Auscultation Cardiovascular: NL Sounds; No Murmurs; No JVD, No Edema Abdominal: NL Sounds; No Tenderness; No Distention Lymphatic: No Cervical Adenopathy Extremities: No Edema Skin: No Rash or Ulcers Neurological: Alert and Oriented x 3, NL Muscle Strength and Tone Nutrition: Taking PO's Result Diagrams: 03/08/18 07:14 03/08/18 07:14 Microbiology and Other Data: . Diagnostic Imaging: . Assess/Plan/Problems-Billing Assessment: This is an 82-year-old female who has been experiencing intermittent chest pain and exertional dyspnea over the last couple of weeks with rapid progression over the last 24 hours, being admitted for chest pain rule out acute coronary syndrome. - Patient Problems (1) Chest pressure Comment: - Likely 2/2 heart failure and valvular disease - Cardiology following. TTE shows mitral valve repair functioning abnormally with moderate to severe tricuspid regurgitation. MERRILL confirms that there is only mild mitral stenosis. Stress test low risk. - Continue ASA - Resume home hctz and spironolactone every other day. (2) Chronic diastolic (congestive) heart failure Comment: - As above, acute on chronic - Resume home meds, monitor. (3) SOB (shortness of breath) Comment: - Likely 2/2 fluid overload and failure - Resolving - Component of fluid overload with diastolic CHF - Suspect that pulmonary hypertension with moderate to severe tricuspid regurgiation is contributing to patient's symptoms of SOB and weakness. Recommend follow up with Dr. Marquez and Dr. Ferguson. (4) History of mitral valve repair Comment: - MERRILL confirms mild mitral stenosis only. (5) UTI (urinary tract infection) Comment: - Switched to amoxicillin based on sensitivities from urine culture. (6) Hypomagnesemia Comment: - In presence of PVCs - Repleted - Monitor (7) PVCs (premature ventricular contractions) Comment: - Etiology unclear, likely valvular disease (8) DVT prophylaxis Comment: - Ambulate. (9) Full code status Comment: Status and Disposition: Discharge to home.
[2018-03-11 08:06] VITALS: BP 130/75
[2018-03-11] MEDS: Aspirin EC TAB* 81 MG TAB.EC PO SCH (08:29)
[2018-03-11] MEDS: Amoxicillin PO (*) 500 MG CAP PO SCH (08:29)
[2018-03-11] MEDS: Cholecalciferol TAB* 1000 UNITS PO SCH (08:29)
[2018-03-11] MEDS ORDERED: Spironolactone TAB* 25 MG PO SCH (09:00)
--- NOTE | 2018-03-12 04:11 | DS ---
CC: Dr. Mi Grajeda; Dr. Marquez * [facility] MEDICINE DISCHARGE SUMMARY: DATE OF ADMISSION: 03/07/18 DATE OF DISCHARGE: 03/11/18 ATTENDING PHYSICIAN: Dr. Mehdi Graham * (dictation provided by Dominique June NP ). PRIMARY CARE PHYSICIAN: Dr. Mi Grajeda. PRIMARY DIAGNOSES: 1. Acute on chronic diastolic congestive heart failure. 2. Urinary tract infection. 3. Pulmonary hypertension with hdqchjyk-lw-yrzfqo tricuspid regurgitation. SECONDARY DIAGNOSES: 1. Mitral valve repair in 2005 and 2014. 2. Chronic diastolic congestive heart failure. 3. History of atrial fibrillation. 4. History of mitral valve disorder, status post repair. 5. Neoplasm of the breast. 6. Giant cell arteritis. MEDICATIONS AT THE TIME OF DISCHARGE: 1. Amoxicillin 500 mg p.o. t.i.d. x3 days. 2. Restasis 0.05% ophthalmic drops 1 drop both eyes b.i.d. 3. Cholecalciferol 2000 units p.o. q.a.m. 4. Cyanocobalamin 500 mcg p.o. q.72 hours. 5. Aspirin 81 mg p.o. q.a.m. 6. Spironolactone 12.5 mg alternating with hydrochlorothiazide 25 mg every other day. HOSPITAL COURSE: Ms. Craft is an 82-year-old female with a past medical history as outlined above, who presented to the emergency room on 03/07/18 with a complaint of chest pressure, dyspnea on exertion, and fatigue. Please see the dictated H and P from Shanti Esquivel for complete details. In brief , the patient had been to see her nurse practitioner at her windows administrator's office on 03/06/18 with the same complaint. The patient states that she had a pounding sensation in her heart, chest pressure, and bouts of diaphoresis with activity. She had stopped hydrochlorothiazide and spironolactone approximately 3 weeks prior as she felt that her symptoms were actually made worse by the medications. At the windows administrator's office, plans were made for workup including stress test, echocardiogram, and Holter monitoring. The following day , the patient was still feeling unwell and therefore decided to come to the emergency room for evaluation. The patient's workup included a chest x-ray, which showed cardiomegaly with hyperinflation, but no evidence of acute cardiopulmonary disease. She had an EKG, which showed a sinus rhythm with trigeminy, but no evidence of ischemia. Her labs were remarkable only for magnesium of 1.8 and BNP of 403. She did have a mildly positive urinalysis with 1+ blood and 1+ bacteria. Ms. Craft was admitted to the hospital for transthoracic echocardiogram, which was read as follows: "Left ventricular chamber size is decreased. Mild concentric left ventricular hypertrophy is observed. Global left ventricular wall motion and contractility are within normal limits. The ejection fraction is estimated at 55% to 60%. The mitral valve repair is functioning abnormally. Anterior leaflet is thickened and mildly decreased in mobility. There is evidence of abpi-ln-fiqaloqe pulmonary hypertension estimated at 44 mmHg, possibly underestimated with moderate- to-severe tricuspid regurgitation." Because of the fact that she had better visualization of the abnormally functioning mitral valve, the patient went on for a transesophageal echocardiogram and it confirmed that there was only mild mitral stenosis. It again showed the presence of the pulmonary hypertension and noted that it was likely underestimated due to the degree of tricuspid regurgitation. She also had a stress test, which was read as low risk. She was started on treatment for her urinary tract infection and this was ultimately switched over to amoxicillin when it was found that she had pansensitive E. coli. Ms. Craft is feeling better today. She was diuresed gently with Lasix during the hospitalization. It was our suspicion that in part her symptoms are related to acute on chronic diastolic congestive heart failure in the setting of stopping her home hydrochlorothiazide and spironolactone. We recommended to her that she resume these medications until followup with Dr. Marquez. In addition, it is possible that her symptoms were in part caused by urinary tract infection and treatment for that is continuing. Finally, I suspect that a component of her symptoms was related to pulmonary hypertension and I recommended that she discuss this further with Dr. Marquez and consider a followup with Dr. Ferguson. The patient is ambulating on the unit independently and is not hypoxic. She states she is not back to her baseline, but feels much better and is eager for discharge to home. DISPOSITION: Home. DIET: Low-fat, low-salt. ACTIVITY: As tolerated. FOLLOWUP: 1. Please follow up with Dr. Grajeda in the next week. 2. Please follow up with Dr. Marquez in the next 1 to 2 weeks. 3. Please consider followup with Dr. Ferguson after discussion with Dr. Marquez at the earliest available appointment. TIME SPENT: Approximately 60 minutes was spent on the discharge of this patient , more than half the time was spent with the patient at the bedside reviewing the events leading up to and during this hospitalization, performing the physical examination, and reviewing my plan of care. DOMINIQUE JUNE NP [id number]/CPS #: [id number] THIERRY
[2018-03-12] MEDS ORDERED: Hydrochlorothiazide TAB* 25 MG PO SCH (09:00)
== END 2018-03-11 12:54 | disposition home or self-care (01) | DRG 292 ==
LOC: ED 11:03 → MEDTELE 13:28 → OBSVTOIN 03-08 15:04
PROVIDERS: ADMIT Internal Medicine; ATTEND Internal Medicine
DX: I11.0 Hypertensive heart disease with heart failure (principal); N39.0 Urinary tract infection, site not specified; I50.33 Acute on chronic diastolic (congestive) heart failure; M31.6 Other giant cell arteritis; I27.20 Pulmonary hypertension, unspecified; I07.1 Rheumatic tricuspid insufficiency; I48.0 Paroxysmal atrial fibrillation; B96.20 Unspecified Escherichia coli [E. coli] as the cause of diseases classified elsewhere; I49.3 Ventricular premature depolarization; E83.42 Hypomagnesemia; D49.3 Neoplasm of unspecified behavior of breast; Z79.82 Long term (current) use of aspirin; Z79.899 Other long term (current) drug therapy
CPT/HCPCS: 36415; 71045; 78452; 80053; 81003; 81015; 82550; 82553; 83605; 83735; 83880; 84436; 84439; 84443; 84484; 85025; 85060; 85610; 85730; 87077; 87086; 87186; 93005; 93017; 93306; 93312; 93325; 99156; 99157; 99284; A9270-GY; A9502; G0378; G8978-GP-CH; G8979-GP-CH; G8980-GP-CH; J1940; J2250; J2310; J2785; J3010; J3475

== ENCOUNTER 2018-07-11 11:13 | Emergency (ER) | payer MEDICARE, BC ==
--- OUTSIDE RECORDS SUMMARY | 2018-07-11 11:18 | XMS REPORT | Continuity of Care Document ---
:1935 External Reference #:[id number] Author Name Dominique Craft PA-C Address [address] [place] [address] Care Team Providers Name Role Phone Mi Grajeda M.D. Care Team Information Technology Engineer Unavailable Mi Grajeda M.D. Primary Care Physician Unavailable Payers Type Date Identification Numbers Payment Provider Subscriber Policy Number: [id number] [employer]-[place] [employer] Edie Craft PayID: [id number] [address] [place] [address] Policy Number: [id number] [facility] Matt Craft PayID: [id number] [address] [place] [address] Advance Directives Description No Information Available Problems Date Description Provider Status Onset: 06/27/2017 Presbycusis Juan Carlos Gandhi M.D. Active Family History Date Family Member(s) Problem(s) Comments General Cancer General Hearing Loss General Heart Disease Social History Type Date Description Comments Sex Unknown Occupation Retired Tobacco Use Start: Unknown Never Smoked Cigarettes Tobacco Use Start: Unknown Never Smoked Cigars Tobacco Use Start: Unknown Never Smoked A Pipe Smokeless Tobacco Never Used Smokeless Tobacco ETOH Use Does not drink alcohol Tobacco Use Start: Unknown Patient has never smoked Smoking Status Reviewed: 06/27/17 Patient has never smoked Allergies, Adverse Reactions, Alerts Description No Known Drug Allergies Medications Medication Date Status Form Strength Qnty SIG Indications Ordering Provider Spironolactone Active Tablets 25mg 1 by Stone,L /0000 mouth genia DUDLEY every other day Hydrochlorothiazide Active Tablets 12.5mg 1 by Jimmy,L /0000 mouth genia DUDLEY every other day Aspirin Low Dose Active Chewtabs 81mg 1 by Stone,L /0000 mouth genia DUDLEY every day Vitamin D 00/00 Active Tablets as C[place]ha /0000 directed Mi carranza M.D. Restasis Active Emulsion 0.05% as Unknown /0000 directed Immunizations Description No Information Available Vital Signs Date Vital Result Comment 07/04/2018 11:11am Weight 135.00 lb Weight 61.236 kg Height 61 inches 5'1" Height in cm's 154.9 cm BMI (Body Mass Index) 25.5 kg/m2 06/27/2017 1:51pm BP Systolic 152 mmHg BP Diastolic 80 mmHg Heart Rate 92 /min Respiratory Rate 18 /min Weight 135.00 lb Weight 61.236 kg Height 61 inches 5'1" Height in cm's 154.9 cm BMI (Body Mass Index) 25.5 kg/m2 Results Description No Information Available Procedures Date Code Description Status 07/04/2018 32375 Removal Wax Impaction Completed 06/27/2017 26874 Tympanometry Completed 06/27/2017 82114 Comprehensive Audiogram Completed Encounters Type Date Location Provider Dx Diagnosis Office Visit 06/27/2017 [place],Laura Shaver H91.13 Presbycusis, 1:45p 06/20/07 Perla Gandhi bilateral Plan of Treatment No Information Available
--- NOTE | 2018-07-11 11:47 | UC ---
Abdominal Pain Female HPI - HPI Summary HPI Summary: Patient presents to urgent care reporting2 days progressive urgency, frequency and pressure. No fever, chills. no nausea vomiting. Denies vaginal discharge, itching ood. No back pain, abdominal pain. No analgesia taken. Pt with a h/o UTI - last in the fall. No analgesia Pt's medicaitons reviewed this visit - History of Current Complaint Chief Complaint: UCGU Stated Complaint: URINARY COMPLAINT Time Seen by Provider: 07/11/18 11:26 Hx Obtained From: Patient, Medical Records Hx Last Menstrual Period: menapause Onset/Duration: Gradual Onset Severity Initially: Mild Severity Currently: Mild Pain Intensity: 1 Pain Scale Used: 0-10 Numeric Allergies/Adverse Reactions: Allergies Allergy/AdvReac Type Severity Reaction Status Date / Time No Known Allergies Allergy Verified 08/23/16 11:16 PMH/Surg Hx/FS Hx/Imm Hx Previously Healthy: Yes - Surgical History Surgical History: Yes Surgery Procedure, Year, and Place: AORTA SURGERY 2005,lumpectomy right 2011 - Family History Known Family History: Positive: Hypertension, Other - FHx of breast cancer Negative: Cardiac Disease, Diabetes - Social History Lives: With Family Alcohol Use: None Substance Use Type: None Smoking Status (MU): Never Smoked Tobacco Have You Smoked in the Last Year: No - Immunization History Most Recent Influenza Vaccination: FALL 2015 Most Recent Tetanus Shot: utd Most Recent Pneumonia Vaccination: unknown Review of Systems All Other Systems Reviewed And Are Negative: Yes Constitutional: Positive: Negative Skin: Positive: Negative Respiratory: Positive: Negative Cardiovascular: Positive: Negative Gastrointestinal: Positive: Negative Genitourinary: Positive: Dysuria, Frequency, Urgency Physical Exam - Summary Physical Exam Summary: Vital Signs Reviewed: Yes A+Ox3, no distress Eyes: Conjunctiva Clear ENT: Hearing grossly normal neck: supple Respiratory: Positive: No respiratory distress, No accessory muscle use Cardiovascular: skin color reflect adequate perfusion abdominal: soft, NT/ND + BS no guarding, no rebound no CVA Musculoskeletal Exam: [place] x 4 without difficulty Neurological: Positive: Alert, ambulatory without difficulty Psychological: Positive: Normal Response To Family Skin: Positive: no rash, no ecchymosis Triage Information Reviewed: Yes Vital Signs: Initial Vital Signs Temp 98.2 F 07/11/18 11:21 Pulse 83 07/11/18 11:21 Resp 18 07/11/18 11:21 BP 151/94 07/11/18 11:21 Pulse Ox 98 07/11/18 11:21 Abd Pain Female Course/Dx - Course Course Of Treatment: Pt with 2 days progressive urinary symptoms, urgency, frequency and burning. Pt denies vaginal discharge. urine with LE and hematuria. will culture. Cephalexin. slight elevated BP at triage - recheck improved. recommend PCP for recheck 1 week - Differential Dx/Diagnosis Provider Diagnosis: UTI (urinary tract infection) Discharge - Sign-Out/Discharge Documenting (check all that apply): Patient Departure All imaging exams completed and their final reports reviewed: No Studies - Discharge Plan Condition: Stable Disposition: HOME Prescriptions: Cephalexin CAP* [Keflex 500 CAP*] 500 mg PO BID #14 cap Patient Education Materials: Urinary Tract Infection in Women (ED) Referrals: Mi Grajeda MD [Primary Care Provider] - Additional Instructions: - stay well hydrated - drink plenty of non-alcoholic, non caffinated beverages - your urine will be further tested - if you require any changes to your treatment, we will contact you - this usually take 2 days - Contact your primary doctor to arrange a follow-up appointment next week. Contact your doctor or return with questions or concerns - Take your antibiotics exactly as prescribed until gone - Okay to take Tylenol every 6 hours for pain. Take with food - Call your doctor to schedule a reassessment next week. Contact yoru doctor or return with questions or concerns - Billing Disposition and Condition Condition: STABLE Disposition: Home
[2018-07-11 11:50] VITALS: BP 130/80
--- NOTE | 2018-07-12 15:34 | UC ---
- Progress Note Progress Note: Notify pt no uti stop antibiotic see PCP if still symptomatic Course/Dx - Diagnoses Provider Diagnoses: UTI (urinary tract infection) Discharge - Sign-Out/Discharge Documenting (check all that apply): Post-Discharge Follow Up All imaging exams completed and their final reports reviewed: No Studies - Discharge Plan Condition: Stable Disposition: HOME Prescriptions: Cephalexin CAP* [Keflex 500 CAP*] 500 mg PO BID #14 cap Patient Education Materials: Urinary Tract Infection in Women (ED) Referrals: Mi Grajeda MD [Primary Care Provider] - Additional Instructions: - stay well hydrated - drink plenty of non-alcoholic, non caffinated beverages - your urine will be further tested - if you require any changes to your treatment, we will contact you - this usually take 2 days - Contact your primary doctor to arrange a follow-up appointment next week. Contact your doctor or return with questions or concerns - Take your antibiotics exactly as prescribed until gone - Okay to take Tylenol every 6 hours for pain. Take with food - Call your doctor to schedule a reassessment next week. Contact yoru doctor or return with questions or concerns - Billing Disposition and Condition Condition: STABLE Disposition: Home
== END 2018-07-11 11:57 | disposition home or self-care (01) ==
LOC: UCEAST 11:13
DX: N39.0 Urinary tract infection, site not specified (principal); Z87.440 Personal history of urinary (tract) infections
CPT/HCPCS: 81003; 87086; 99212; G0463

== ENCOUNTER 2018-10-03 08:26 | Emergency (ER) | payer BC, MEDICARE ==
[2018-10-03] MEDS ORDERED: Lidocaine 2.5%/Prilocain 2.5%* 5 GM TUBE TOPICAL ONE (08:30)
--- NOTE | 2018-10-03 08:32 | UC ---
UC General HPI - HPI Summary HPI Summary: 83 yo female present c /o tick bite - thinks has been on her for approx 3+ days. The ant thigh was itchy, and burning, looked down this am and pulled off engorged, healthy tick. + redness circumferential. No fever / chills. No cough / sob. No GI symptoms. - History of Current Complaint Stated Complaint: TICK Time Seen by Provider: 10/03/18 08:30 Hx Obtained From: Patient Hx Last Menstrual Period: menapause - Allergy/Home Medications Allergies/Adverse Reactions: Allergies Allergy/AdvReac Type Severity Reaction Status Date / Time No Known Allergies Allergy Verified 08/23/16 11:16 PMH/Surg Hx/FS Hx/Imm Hx Previously Healthy: Yes - see hpi - Surgical History Surgical History: Yes Surgery Procedure, Year, and Place: AORTA SURGERY 2005,lumpectomy right 2011 - Family History Known Family History: Positive: Hypertension, Other - FHx of breast cancer Negative: Cardiac Disease, Diabetes - Social History Alcohol Use: None Substance Use Type: None Smoking Status (MU): Never Smoked Tobacco Have You Smoked in the Last Year: No - Immunization History Most Recent Influenza Vaccination: FALL 2015 Most Recent Tetanus Shot: utd Most Recent Pneumonia Vaccination: unknown Review of Systems All Other Systems Reviewed And Are Negative: Yes Constitutional: Positive: Negative Skin: Positive: Other - see hpi Eyes: Positive: Negative ENT: Positive: Negative Respiratory: Positive: Negative Cardiovascular: Positive: Negative Gastrointestinal: Positive: Negative Genitourinary: Positive: Negative Motor: Positive: Negative Neurovascular: Positive: Negative Musculoskeletal: Positive: Arthralgia Neurological: Positive: Negative Psychological: Positive: Negative Is Patient Immunocompromised?: No Physical Exam Triage Information Reviewed: Yes Appearance: Well-Appearing, Well-Nourished Vital Signs Reviewed: Yes Eye Exam: Normal ENT Exam: Normal Neck exam: Normal - supple for age Respiratory Exam: Normal Respiratory: Positive: Chest non-tender, Lungs clear, Normal breath sounds, No respiratory distress, No accessory muscle use Cardiovascular Exam: Normal Cardiovascular: Positive: RRR Abdominal Exam: Normal Musculoskeletal Exam: Normal - see skin. Mild Ble edema Neurological Exam: Normal - grossly nonfocal Psychological Exam: Normal - conversing easily and appropriate Skin Exam: Normal - normal except for R ant thigh with + redness, slight warm nonblanching approx 0.8cm x 1.2cm. Tender, nonfluctuant. She has the tick ( looks like deer tick) with her, alive and well. Course/Dx - Course Course Of Treatment: Reviewed coa / tx plan. 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 Will hold off doxy. Rx amoxil. Encourage f/u PCP Questions answered as posed to the best of my abiliyt. - Diagnoses Provider Diagnosis: Tick bite, Rash Discharge - Sign-Out/Discharge Documenting (check all that apply): Patient Departure All imaging exams completed and their final reports reviewed: No Studies - Discharge Plan Condition: Good Disposition: HOME Prescriptions: Amoxicillin PO (*) [Amoxicillin 875 MG (*)] 875 mg PO BID #42 tab Patient Education Materials: Insect Bite or Sting (ED) Referrals: Mi Grajeda MD [Primary Care Provider] - Additional Instructions: Follow up with your primary care physician in about 3-4 weeks. Seek medical attention for worse or new problems in the meantime. Consider probiotic at least once daily (Ex Culturelle), over the counter - Billing Disposition and Condition Condition: GOOD Disposition: Home
[2018-10-03 08:41] VITALS: BP 173/74
== END 2018-10-03 09:08 | disposition home or self-care (01) ==
LOC: UCEAST 08:26
DX: S70.361A Insect bite (nonvenomous), right thigh, initial encounter (principal); R21 Rash and other nonspecific skin eruption; W57.XXXA Bitten or stung by nonvenomous insect and other nonvenomous arthropods, initial encounter; Y92.9 Unspecified place or not applicable
CPT/HCPCS: 99212; G0463

== ENCOUNTER 2018-10-11 09:08 | Emergency (ER) | payer MEDICARE, BC ==
[2018-10-11 09:35] VITALS: BP 140/85
--- NOTE | 2018-10-11 10:34 | UC ---
Complaint Female HPI - HPI Summary HPI Summary: PATIENT WAS PLACED ON 3 WEEKS OF TWICE DAILY AMOXICILLIN 8 DAYS AGO ON 10/03/18 FOR TICK BITE. SHE HAD NO SYMPTOMS OF LYME DISEASE. SHE COMES IN TODAY WITH SEVERAL DAYS OF INCREASING VAGINAL REDNESS, IRRITATION AND SOME SLIGHT BURNING AFTER URINATING. NO DISCHARGE, FOUL ODOR OR URINARY FREQUENCY. NO FEVER, BACK PAIN, NAUSEA. - History Of Current Complaint Chief Complaint: UCGU Stated Complaint: URINARY ISSUE Time Seen by Provider: 10/11/18 09:31 Hx Obtained From: Patient Hx Last Menstrual Period: menapause Onset/Duration: Gradual Onset, Lasting Days, Still Present Timing: Constant Severity Initially: Moderate Severity Currently: Moderate Pain Intensity: 0 Pain Scale Used: 0-10 Numeric Character: Burning Aggravating Factor(s): Urination Alleviating Factor(s): Nothing Associated Signs And Symptoms: Negative: Fever, Vaginal Discharge - Allergies/Home Medications Allergies/Adverse Reactions: Allergies Allergy/AdvReac Type Severity Reaction Status Date / Time No Known Allergies Allergy Verified 08/23/16 11:16 PMH/Surg Hx/FS Hx/Imm Hx Cardiovascular History: Cardiac Disease - VALVE REPLACEMENT, Hypertension Cancer History: Breast Cancer - Surgical History Surgical History: Yes Surgery Procedure, Year, and Place: AORTA SURGERY 2005,lumpectomy right 2012 - Family History Known Family History: Positive: Hypertension, Other - FHx of breast cancer Negative: Cardiac Disease, Diabetes - Social History Alcohol Use: None Substance Use Type: None Smoking Status (MU): Never Smoked Tobacco Have You Smoked in the Last Year: No - Immunization History Most Recent Influenza Vaccination: FALL 2015 Most Recent Tetanus Shot: utd Most Recent Pneumonia Vaccination: unknown Review of Systems All Other Systems Reviewed And Are Negative: Yes Constitutional: Positive: Fatigue Skin: Positive: Negative Respiratory: Positive: Negative Cardiovascular: Positive: Negative Gastrointestinal: Positive: Negative Genitourinary: Positive: Dysuria, Vaginal/Penile Burning Physical Exam Triage Information Reviewed: Yes Appearance: Well-Appearing, No Pain Distress, Well-Nourished Vital Signs: Initial Vital Signs Temp 98.5 F 10/11/18 09:28 Pulse 85 10/11/18 09:28 Resp 16 10/11/18 09:28 BP 140/85 10/11/18 09:28 Pulse Ox 98 10/11/18 09:28 Laboratory Tests 10/11/18 09:39 POC Urine Color Yellow POC Urine Clarity Clear POC Urine pH 5.5 POC Ur Specif Nu Mine 1.015 POC Urine Protein Trace A POC Ur Glucose (UA) Negative POC Urine Ketones Negative POC Urine Blood Trace-lysed A POC Urine Nitrite Negative POC Urine Bilirubin Negative POC Urine Urobilinogen 0.2 POC U Leukocyte Esteras Trace A Vital Signs Reviewed: Yes Eyes: Positive: Conjunctiva Clear ENT: Positive: Hearing grossly normal Neck: Positive: Supple Respiratory: Positive: No respiratory distress, No accessory muscle use Cardiovascular: Positive: Pulses Normal Abdomen Description: Positive: Soft Pelvic Exam: Positive: Other - PERINEUM AND EXTERNAL GENITALIA ERYTHEMATOUS AND BEEFY. NO DISCHARGE.. Negative: Discharge Musculoskeletal: Positive: No Edema Neurological: Positive: Alert Psychological: Positive: Age Appropriate Behavior Skin: Positive: Other - TICK ATTACHMENT SITE RIGHT THIGH. NO REDNESS OR TENDERNESS. Complaint Female Dx - Course Course Of Treatment: PT LIKELY WITH YEAST VAGINITIS FROM AMOXICILLIN. ADVISED TO STOP AMOX. NO SX OF LYME. ADVISED TO BE VIGILANT OF SX AND SEEK EVAL IF NEEDED. SWAB SENT FOR TESTING FOR VAGINITIS. WILL TX EMPIRICALLY WITH DIFLUCAN. - Differential Dx/Diagnosis Provider Diagnosis: Vaginitis Discharge - Sign-Out/Discharge Documenting (check all that apply): Patient Departure All imaging exams completed and their final reports reviewed: No Studies - Discharge Plan Condition: Stable Disposition: HOME Prescriptions: Fluconazole 150 MG (NF) [Diflucan 150 mg (NF)] 150 mg PO ONCE #2 tab Patient Education Materials: Vaginitis (ED) Referrals: Mi Grajeda MD [Primary Care Provider] - If Needed Additional Instructions: YOUR SYMPTOMS ARE CONSISTENT WITH A VAGINITIS. GIVEN THAT YOU HAVE BEEN ON AMOXICILLIN FOR OVER A WEEK IT IS LIKELY A YEAST VAGINITIS. SWAB WILL BE SENT FOR TESTING. TAKE DIFLUCAN 1 DOSE TO TREAT THE SYMPTOMS. IF YOU STILL HAVE SYMPTOMS IN 3 DAYS TAKE THE SECOND DOSE. YOU MAY ALSO USE [id number] MONISTAT FOR DOUBLE COVERAGE. FOLLOW-UP WITH YOUR PCP IF YOUR SYMPTOMS DO NOT IMPROVE WITH THIS TREATMENT. YOUR URINE IS NOT HIGHLY SUGGESTIVE OF A UTI. IT WILL BE SENT FOR CULTURE TO CONFIRM YOU DO NOT NEED TREATMENT FOR UTI. I WOULD RECOMMEND YOU STOP TAKING THE AMOXICILLIN YOU HAVE NO SIGNS OR SYMPTOMS OF LYME DISEASE. BE VIGILANT OF YOUR SYMPTOMS AND IF YOU DEVELOP UNEXPLAINED FEVER, HEADACHE, JOINT PAIN, MUSCLE PAIN OR RASH SEEK REEVALUATION. - Billing Disposition and Condition Condition: STABLE Disposition: Home
== END 2018-10-11 10:58 | disposition home or self-care (01) ==
LOC: UCEAST 09:08
DX: N76.0 Acute vaginitis (principal); R30.0 Dysuria; R53.83 Other fatigue; I10 Essential (primary) hypertension; Z95.2 Presence of prosthetic heart valve
CPT/HCPCS: 81003; 87086; 87480; 87510; 99212; G0463

== ENCOUNTER 2019-05-25 16:44 | Inpatient (IN) | payer MEDICARE, BC ==
--- OUTSIDE RECORDS SUMMARY | 2019-05-25 17:44 | XMS REPORT | Continuity of Care Document ---
:1935 External Reference #:[id number] Author Name Jacqueline Monsivais N.P. (transmitted by agent of provider Sadia Ace) Address [address] [place] [address] Care Team Providers Name Role Phone Mi Grajeda MD - Family Care Team Information [employer] [phone] Medicine Sudheer Wallace MD - Thoracic Care Team Information [employer] Surgery (Cardiothoracic Vascular Surgery) Problems Active Problems Provider Date Giant cell arteritis Thompson Messer M.D. Onset: 03/13/2012 Neoplasm of breast Thompson Messer M.D. Onset: 03/13/2012 Disorder of bursa of shoulder region Thompson Messer M.D. Onset: 06/05/2012 Mitral valve disorder Mi Marquez M.D. Onset: 04/16/2013 Disorder of shoulder Mi Marquez M.D. Onset: 04/16/2013 Dyspnea Mi Marquez M.D. Onset: 04/16/2013 Tricuspid valve disorder, non-rheumatic Mi Marquez M.D. Onset: 06/03/2014 Left heart failure Mi Marquez M.D. Onset: 06/03/2014 Congestive heart failure Mi Marquez M.D. Onset: 06/03/2014 History of fall Mi Marquez M.D. Onset: 06/03/2014 Atrial fibrillation Mi Marquez M.D. Onset: 06/03/2014 Chronic diastolic heart failure Mi Marquez M.D. Onset: 09/11/2015 Essential hypertension Mi Marquez M.D. Onset: 07/27/2016 Chest pain Shanti Esquivel NP Onset: 03/07/2018 Disorder of magnesium metabolism Shanti Husainfield Alvin NP Onset: 03/07/2018 Premature beats Shanti Burroughs GALLO Esquivel Onset: 03/08/2018 Rheumatic disease of tricuspid valve Dominique June N.P. Onset: 03/11/2018 Urinary tract infectious disease Dominique June N.P. Onset: 03/11/2018 Pulmonary arterial hypertension Dominique June N.P. Onset: 03/11/2018 Paroxysmal atrial fibrillation Mi Marquez M.D. Onset: 02/01/2019 Social History Type Date Description Comments Sex Unknown Tobacco Use Start: Unknown Never Smoked Cigarettes Smoking Status Reviewed: 05/25/19 Never Smoked Cigarettes ETOH Use Denies alcohol use Tobacco Use Start: Unknown Patient has never smoked Recreational Drug Use Denies Drug Use Exercise Type/Frequency Exercises sporadically Allergies, Adverse Reactions, Alerts Active Allergies Reaction Severity Comments Date Statins 02/12/2014 Arimidex felt terrible, SOB and more. 08/19/2017 Inactive Allergies NKDA 01/07/2011 Medications Active Medications SIG Qnty Indications Ordering Date Provider Slow-Mag 1 tab by mouth 60tabs Jacqueline S. 04/10/2019 71.5-119mg Tablets DR at night Loi, N.P. Digox 1 tab by mouth 90tabs I49.3 Jacqueline S. 02/01/2019 250mcg Tablets every day Foster, N.P. Eliquis 1 tablet by 180tabs I48.1 Mi Marquez, 12/07/2018 2.5mg Tablets mouth twice a M.D. day Metoprolol Succinate ER 1/2 tab by 30tabs I48.1 Jacqueline S. 12/07/2018 25mg mouth at Foster, N.P. Tablets ER 24HR bedtime Spironolactone 1/2 tablet by 45tabs I50.32 Jacqueline S. 09/11/2015 25mg Tablets mouth Mondays, Foster, N.P. Wednesdays, and Fridays Hydrochlorothiazide Take 1 Capsule 93caps Jacqueline S. 02/12/2014 12.5mg By Mouth Every Foster, N.P. Capsules Tuesday And Restasis 1 gtt both eyes Unknown 0.05% Emulsion twice daily Am/PM History Medications Magnesium-Oxide 1 by mouth 30tabs Mi Gallia, 03/09/2019 - 400(241.3mg) every day M.D. 04/10/2019 mg Tablets Potassium Chloride Lois 1 by mouth 30tabs I48.1 Jacqueline LeviCarlos Loi, 2018 - ER daily (not N.P. 12/26/2018 20Meq Tablets ER taking) Immunizations CPT Code Status Date Vaccine Lot # [id number] Given 05/10/2012 Zoster (Zostavax) [id number] Given 04/12/2012 Fluzone Vaccine [id number] Given 03/19/2011 Afluria Vaccine [id number] Vital Signs Date Vital Result Comment 05/25/2019 11:28am Height 60 inches 5'0" Weight 128.00 lb with shoes Heart Rate 72 /min BP Systolic Sitting 130 mmHg lue reg cuff BP Diastolic Sitting 78 mmHg lue reg cuff BP Systolic Standing 124 mmHg lue reg cuff BP Diastolic Standing 80 mmHg lue reg cuff BP Systolic Recheck 148 mmHg BP Diastolic Recheck 80 mmHg Respiratory Rate 14 /min BMI (Body Mass Index) 25.0 kg/m2 Ejection Fraction 55-60% 04/10/2019 9:47am Height 60 inches 5'0" Weight 133.00 lb with shoes Heart Rate 74 /min BP Systolic Sitting 122 mmHg Lue reg cuff BP Diastolic Sitting 90 mmHg Lue reg cuff BP Systolic Standing 106 mmHg Lue reg cuff BP Diastolic Standing 80 mmHg Lue reg cuff Respiratory Rate 14 /min BMI (Body Mass Index) 26.0 kg/m2 Ejection Fraction 55-60% ECHO 06/08/2018 Results Test Acquired Date Facility Test Result H/L Range Note Laboratory test 04/06/2019 [facility] Digoxin 1.3 ng/ml Normal 0.8-2.[address] [place] [address] [phone] Laboratory test 03/09/2019 [facility] Digoxin 2.6 ng/ml Critical 0.8-2.0 [address] [place] [address] [phone] Basic Metabolic 03/09/2019 [facility] Sodium 132 mmol/L Low 135-[address] [place] [address] [phone] Potassium 4.5 mmol/L Normal 3.5-5.0 Chloride 95 mmol/L Low 101-111 Co2 Carbon Dioxide 32 mmol/L Normal 22-32 Anion Gap 5 mmol/L Normal 2-11 Glucose 99 mg/dL Normal 70-100 Blood Urea Nitrogen 12 mg/dL Normal 6-24 Creatinine 0.94 mg/dL Normal 0.51-0.95 BUN/Creatinine Ratio 12.8 Normal 8-20 Calcium 9.0 mg/dL Normal 8.6-10.3 Egfr Non- 57.2 >60 Egfr 69.2 >60 2 Laboratory test 03/09/2019 [facility] Magnesium 1.6 mg/dL Low 1.9-2.7 finding [address] [place] [address] [phone] Laboratory test 02/20/2019 [facility] Digoxin 1.7 ng/ml Normal 0.8-2.0 finding [address] [place] [address] [phone] Laboratory test 12/26/2018 [facility] Magnesium <pending> finding [address] [place] [address] [phone] Laboratory test 12/08/2018 [facility] Magnesium 1.9 mg/dL Normal 1.9-2.7 finding [address] [place] [address] [phone] TSH (Thyroid Stim Horm) 3.10 mcIU/mL Normal 0.34-5.60 Basic Metabolic 12/08/2018 [facility] Sodium 137 mmol/L Normal 135-145 Panel [address] [place] [address] [phone] Chloride 104 mmol/L Normal 101-111 Co2 Carbon Dioxide 27 mmol/L Normal 22-32 Glucose 98 mg/dL Normal 70-100 Blood Urea Nitrogen 26 mg/dL High 6-24 Creatinine 1.06 mg/dL High 0.51-0.95 BUN/Creatinine Ratio 24.5 High 8-20 Calcium 9.5 mg/dL Normal 8.6-10.3 Egfr Non- 49.8 >60 Egfr 60.2 >60 3 Potassium 5.1 mmol/L High 3.5-5.0 Anion Gap 6 mmol/L Normal 2-11 CBC Auto 12/08/2018 [facility] White Blood 4.7 10^3/uL Normal 3.5-10.8 Diff [address] [facility] [place] [address] [phone] Red Blood Count 4.67 10^6/uL Normal 3.70-4.87 Hemoglobin 14.3 g/dL Normal 12.0-16.0 Hematocrit 43 % Normal 35-47 Mean Corpuscular Volume 93 fL Normal 80-97 Mean Corpuscular Hemoglobin 31 pg Normal 27-31 Mean Corpuscular HGB Conc 33 g/dL Normal 31-36 Red Cell Distribution Width 14 % Normal 10-15 Platelet Count 105 10^3/uL Low 150-450 Mean Platelet Volume 10.5 fL High 7.4-10.4 Abs Neutrophils 2.8 10^3/uL Normal 1.5-7.7 Abs Lymphocytes 1.5 10^3/uL Normal 1.0-4.8 Abs Monocytes 0.3 10^3/uL Normal 0-0.8 Abs Eosinophils 0.0 10^3/uL Normal 0-0.6 Abs Basophils 0.0 10^3/uL Normal 0-0.2 Abs Nucleated RBC 0.0 10^3/uL Granulocyte % 60.1 % Lymphocyte % 31.5 % Monocyte % 7.2 % Eosinophil % 0.6 % Basophil % 0.6 % Nucleated Red Blood Cells % 0.1 Urinalysis Profile 12/07/2018 [facility] Urine Color Yellow [address] [place] [address] [phone] Urine Appearance Clear Urine Specific [place] 1.011 Normal 1.010-1.030 Urine pH 5.0 Normal 5-9 Urine Urobilinogen Negative Negative Urine Ketones Negative Negative Urine Protein Negative Negative Urine Leukocytes Trace Abnormal Negative Urine Blood 1+ Abnormal Negative Urine Nitrite Negative Negative Urine Bilirubin Negative Negative Urine Glucose Negative Negative Urine White Blood Cell Trace(0-5/hpf) Absent Urine Red Blood Cell Trace(0-2/hpf) Absent Urine Bacteria Absent Absent Urine Squamous Epithelial Cell Present Abnormal Absent Urine Culture And 12/07/2018 [facility] Urine Culture SEE RESULT [address] [place] [address] [phone] Critical Result DIGN:2.6 Called to HUBERT Marcelo RN/CAROLYNN at: 13:42:22 by:[id number] Read back by:HUBERT Marcelo RN/CAROLYNN 2 Because ethnic data is not always [...] 5 Kidney failure <15 (or dialysis) 3 Because ethnic data is not always readily [...] 15-29 5 Kidney failure <15 (or dialysis) 4 [id number] 5 SEE RESULT BELOW Name: Edie STEWART : [address]: Jacqueline Monsivais [employer] Acct: [id number] Unit: [id number] AGE: 83 Location: [facility] Re12/07/18 SEX: F Status: REG REF SPEC: [id number] VAZQUEZ: 12/07/18-[address]: Jacqueline Monsivais NP REQ: [id number] RECD: 12/07/18-1323 STATUS: JENN DENIS DR: Mi Marquez MD _ SOURCE: URINE SPDESC: ORDERED: Urine Culture COMMENTS: [id number] Procedure Result Reported Site Urine Culture Final 12/08/18- 1212 ML No growth of clinically significant organisms * ML - Main Lab . END OF REPORT DEPARTMENT OF PATHOLOGY, [address] [place] [address] Augustine Torres M.D. Director [facility] # [id number] Procedures Date Code Description Status 05/25/2019 13170 EKG Tracing & Interpretation Completed 04/10/2019 69078 EKG Tracing & Interpretation Completed 03/09/2019 12576 EKG Tracing & Interpretation Completed 01/09/2019 91108 Holter Monitor Review (24 hr)dr review & interp only Completed 01/03/2019 59083 ECG Monitor/Recording W/Visual Superimposition Completed Scanning 12/26/2018 15362 EKG Tracing & Interpretation Completed 12/08/2018 08161 Moderate Sedation Services; Same Phys Intl 15 Mins; PT Completed >= 5 Years 12/08/2018 03634 Color Flow Doppler/Interp & Reprt Completed 12/08/2018 28385 Pulse Wave/Continuous-Interp.RPT Completed 12/08/2018 84437 Echocardiography, Transesophageal, Real Time W/Image Completed 2D W/W/O M-M 12/08/2018 54824 EKG, Interpretation Only Completed 12/08/2018 38850 Cardioversion Completed 12/07/2018 64872 EKG Tracing & Interpretation Completed 03/27/2015 [id number] Bone Mineral Density Test Completed Medical Devices Description No Information Available Encounters Type Date Location Provider Dx Diagnosis Office Visit 05/25/2019 [facility] Jacqueline S. R94.31 Abnormal 11:30a [employer] Foster, N.P. electrocardiogram [ECG] [EKG] I48.0 Paroxysmal atrial fibrillation I34.1 Nonrheumatic mitral (valve) prolapse I49.3 Ventricular premature depolarization R07.9 Chest pain, unspecified Office Visit 04/10/2019 10:00a [facility] Jacqueline S. I48.0 Paroxysmal atrial [employer] Foster, N.P. fibrillation I34.1 Nonrheumatic mitral (valve) prolapse I49.3 Ventricular premature depolarization R94.31 Abnormal electrocardiogram [ECG] [EKG] I27.20 Pulmonary hypertension, unspecified Office Visit 02/01/2019 1:30p [facility] Mi Marquez, I48.0 Paroxysmal atrial [employer] M.D. fibrillation I34.1 Nonrheumatic mitral (valve) prolapse I49.3 Ventricular premature depolarization Office Visit 12/26/2018 1:30p [facility] Jacqueline S. I48.0 Paroxysmal atrial [employer] Foster, N.P. fibrillation I27.20 Pulmonary hypertension, unspecified I36.1 Nonrheumatic tricuspid (valve) insufficiency I34.0 Nonrheumatic mitral (valve) insufficiency R94.31 Abnormal electrocardiogram [ECG] [EKG] R53.83 Other fatigue Office Visit 12/07/2018 12:00p [facility] Jacqueline S. I27.20 Pulmonary Cardiology Of Foster, N.P. hypertension, [employer] unspecified I36.1 Nonrheumatic tricuspid (valve) insufficiency I34.0 Nonrheumatic mitral (valve) insufficiency R06.02 Shortness of breath I48.1 Persistent atrial fibrillation N39.0 Urinary tract infection, site not specified Assessments Date Code Description Provider 05/25/2019 R94.31 Abnormal electrocardiogram [ECG] [EKG] Jacqueline S. Foster, N.P. 05/25/2019 I48.0 Paroxysmal atrial fibrillation Jacqueline S. Foster, N.P. 05/25/2019 I34.1 Nonrheumatic mitral (valve) prolapse Jacqueline S. Foster, N.P. 05/25/2019 I49.3 Ventricular premature depolarization Jacqueline S. Foster, N.P. 05/25/2019 R07.9 Chest pain, unspecified Jacqueline S. Foster, N.P. 04/10/2019 R94.31 Abnormal electrocardiogram [ECG] [EKG] Mi Marquez M.D. 04/10/2019 I48.0 Paroxysmal atrial fibrillation Jacqueline S. Foster, N.P. 04/10/2019 I34.1 Nonrheumatic mitral (valve) prolapse Jacqueline S. Foster, N.P. 04/10/2019 I49.3 Ventricular premature depolarization Jacqueline S. Foster, N.P. 04/10/2019 R94.31 Abnormal electrocardiogram [ECG] [EKG] Jacqueline S. Foster, N.P. 04/10/2019 I27.20 Pulmonary hypertension, unspecified Jacqueline S. Foster, N.P. 03/09/2019 I48.0 Paroxysmal atrial fibrillation Nurse Visit IC 02/01/2019 I48.0 Paroxysmal atrial fibrillation Mi Marquez M.D. 02/01/2019 I34.1 Nonrheumatic mitral (valve) prolapse Mi Marquez M.D. 02/01/2019 I49.3 Ventricular premature depolarization Mi Marquez M.D. 01/09/2019 I48.0 Paroxysmal atrial fibrillation Mi Marquez M.D. 01/09/2019 I49.3 Ventricular premature depolarization Mi Marquez M.D. 01/03/2019 I48.0 Paroxysmal atrial fibrillation Nurse Visit IC 01/03/2019 I49.3 Ventricular premature depolarization Nurse Visit 12/26/2018 R94.31 Abnormal electrocardiogram [ECG] [EKG] Mi Marquez M.D. 12/26/2018 I48.0 Paroxysmal atrial fibrillation Jacqueline S. Foster, N.P. 12/26/2018 I27.20 Pulmonary hypertension, unspecified Jacqueline S. Foster, N.P. 12/26/2018 I36.1 Nonrheumatic tricuspid (valve) Jacqueline S. Foster, N.P. insufficiency 12/26/2018 I34.0 Nonrheumatic mitral (valve) Jacqueline S. Foster, N.P. insufficiency 12/26/2018 R94.31 Abnormal electrocardiogram [ECG] [EKG] Jacqueline S. Foster, N.P. 12/26/2018 R53.83 Other fatigue Jacqueline S. Foster, N.P. 12/08/2018 Z13.6 Encounter for screening for Jt Evin Perkins M.D., [facility], cardiovascular disorders [facility] 12/08/2018 I48.91 Unspecified atrial fibrillation Paulino Soto DO [facility] 12/07/2018 R94.31 Abnormal electrocardiogram [ECG] [EKG] Carlos Davidson M.D. 12/07/2018 I27.20 Pulmonary hypertension, unspecified Jacqueline S. Foster, N.P. 12/07/2018 I36.1 Nonrheumatic tricuspid (valve) Jacqueline S. Foster, N.P. insufficiency 12/07/2018 I34.0 Nonrheumatic mitral (valve) Jacqueline S. Foster, N.P. insufficiency 12/07/2018 R06.02 Shortness of breath Jacqueline S. Loi, N.P. 12/07/2018 I48.1 Persistent atrial fibrillation Jacqueline S. Foster, N.P. 12/07/2018 N39.0 Urinary tract infection, site not Refugio Blake.Patsy. specified Plan of Treatment Future Appointment(s):08/02/2019 2:40 pm - Mi Marquez M.D. at [facility]07/03/2019 11:00 am - Nurse Visit IC at [facility]07/02/2019 11:30 am - Nurse Visit IC at [facility]06/28/2019 9 :10 am - Meng Wolf MD at [facility]05/25/2019 - Refugio Blake.P.R94.31 Abnormal electrocardiogram [ECG] [EKG]I48.0 Paroxysmal atrial fibrillationRecommendations:Take BP with new cuff Call if top number consistently > 145 Recommend Omron cuff.I34.1 Nonrheumatic mitral (valve) zgrezzqbY62.3 Ventricular premature depolarizationNew Orders:Holter Monitor, Ordered: 05/25/19R07.9 Chest pain, unspecifiedNew Labs:Erythrocyte Sed Rate, Ordered: 05/25/19C Reactive Protein, Ordered: 05/25/19Troponin-I (TnI), Ordered : 05/25/19D Dimer Quantitative, Ordered: 05/25/19Magnesium, Ordered: Follow up:OV [facility] 07/2019 after holterRecommendations:Chest pain sounds atypical could be clots in your lungs (unlikely) could be inflammation around yourheart could be inflammation of cartilage. could be reflux. Functional Status Description No Information Available Mental Status Description No Information Available Referrals Description No Information Available
--- OUTSIDE RECORDS SUMMARY | 2019-05-25 17:45 | XMS REPORT | Continuity of Care Document ---
:1935 External Reference #:[id number] Author Name Mi Grajeda MD Address [address] [place] [id number] Care Team Providers Name Role Phone Vasu Frances MD Care Team Information Radar Signal Processing Engineer [phone] Deniz Michelle DPM - Boom Crane Operator Care Team Information Radar Signal Processing Engineer Problems Active Problems Provider Date Anticoagulant agent Mi Grajeda MD Onset: 12/18/2013 Atrial fibrillation Mi Grajeda MD Onset: 12/18/2013 Tinnitus Mi Grajeda MD Onset: 04/05/2013 Mixed hyperlipidemia Mi Grajeda MD Onset: 09/19/2012 Peripheral vascular disease Mi Grajeda MD Onset: 07/12/2011 Chronic kidney disease stage 2 Mi Grajeda MD Onset: 07/12/2011 Osteochondropathy Mi Grajeda MD Onset: 07/12/2011 Vitamin D deficiency Mi Grajeda MD Onset: 07/07/2011 Polymyalgia rheumatica Mi Grajeda MD Onset: 07/07/2011 Senile cataract Mi Grajeda MD Onset: 07/07/2011 Malignant neoplasm of female breast Mi Grajeda MD Onset: 07/07/2011 Mitral valve disorder Mi Grajeda MD Onset: 07/07/2011 Benign essential hypertension Mi Grajeda MD Onset: 07/07/2011 Degenerative joint disease involving multiple Mi Grajeda MD Onset: joints Heart valve replacement Mi Grajeda MD Onset: 04/18/2015 Disorder of bone Mi Grajeda MD Onset: 04/18/2015 Chronic atrial fibrillation Mi Grajeda MD Onset: 04/18/2015 Benign neoplasm of colon Mi Grajeda MD Onset: 04/18/2015 Tricuspid valve disorder, non-rheumatic Mi Grajeda MD Onset: 2015 Thrombocytopenic disorder Mi Grajeda MD Onset: 05/02/2018 Personal history of primary malignant neoplasm Mi Grajeda MD Onset: of breast Paroxysmal atrial fibrillation Mi Grajeda MD Onset: 05/02/2018 Benign hypertensive heart disease with Mi Grajeda MD Onset: 05/02/2018 congestive cardiac failure Secondary pulmonary hypertension Mi Grajeda MD Onset: 11/21/2018 Social History Type Date Description Comments Sex Unknown ETOH Use Denies alcohol use Tobacco Use Start: Unknown Patient has never smoked Recreational Drug Use Denies Drug Use Smoking Status Reviewed: 05/03/19 Patient has never smoked Exercise Type/Frequency Exercises regularly Exercises regularly, walking, gardening Allergies, Adverse Reactions, Alerts Active Allergies Reaction Severity Comments Date Atorvastatin cramps Severe 05/03/2019 Inactive Allergies NKDA 07/01/2014 Medications Active Medications SIG Qnty Indications Ordering Provider Date Metoprolol Succinate ER 1/2 tab at hs I10 Mi Burrows 04/11/2019 25mg Tablets ER 24HR I50.33 I48.0 Digox alternating 1/2 and 1 po I50.33 Mi Burrows 04/11/2019 250mcg Tablets daily I48.0 Spironolactone 1/2 tab tuesday, I10 Mi Burrows 09/05/2015 25mg Tablets tuesday and tuesday Hydrochlorothiazide 1 by mouth daily in I10 Mi Burrows 12.5mg Tablets the morning,on tuesday and I34.0 I48.2 Restasis 1 drop in each eye twice Unknown 0.05% Emulsion a day Eliquis 1 po bid I48.0 Mi Burrows 2.5mg Tablets Slow-Mag 1 at night with dinner E83.42 Unknown 71.5-119mg Tablets Immunizations CPT Code Status Date Vaccine Reaction Lot # [id number] Given 04/02/2019 Influenza Vac, Quadrivalent, Split, 0.5mL Dos[place], [place] [address] Given 01/23/2019 Shingrix (Shingles) Zoster [facility] Vaccine HZV, Recombinant, Subunit, Adj Q2039 Given 03/21/2018 Flu Vaccine NOS given at pharmacy 91540 Given 11/24/2017 Tdap (Boostrix)tetanus, diptheria given at pharmacy toxoid & acellular pertussis Q2036 Given 03/09/2017 Flulaval Immunization [facility] Q2035 Given 03/12/2016 Afluria Imunization Q2035 Given 05/09/2015 Afluria Imunization 30114 Given 10/02/2014 Prevnar 13 Pneumococal Conjugate [id number] Vaccine 52568 Given 03/20/2014 Influenza Virus Vaccine,Quadrivalent,Split,Preser v Free, 0.5mL,[place] [address] Given 04/05/2013 Afluria Or Fluvirin Flu Vac Intramuscular 73366 Given 05/16/2012 Zoster (Zostavax) 68859 Given 03/21/2012 Afluria Or Fluvirin Flu Vac Intramuscular 10044 Given 08/24/2011 Pneumococcal 23 Immunization Adult Or Immunosuppressed Patient 35296 Given 04/18/2008 Afluria Or Fluvirin Flu Vac DR. AVIS ADAN Intramuscular 34309 Given 02/03/2006 Tetanus And Diptheria Toxoid 7 DR AVIS ADAN Years And Older Preserv Free 51898 Given 10/31/[address] MATY NAGY Adult Or Immunosuppressed Patient 83804 Given 01/10/1996 Tetanus And Diptheria Toxoid 7 DR MATY NAGY Years And Older Preserv Free 82763 Refused 05/03/2019 Shingrix (Shingles) Zoster is waiting home care liaison from Vaccine HZV, Recombinant, pharmacy for second Subunit, Adj shingrix 30171 Refused 11/21/2018 Shingrix (Shingles) Zoster Vaccine HZV, Recombinant, Subunit, Adj 92404 Refused 03/15/2018 Shingrix (Shingles) Zoster will get at pharmacy Vaccine HZV, Recombinant, Subunit, Adj Q2039 Refused 03/15/2018 Flu Vaccine NOS will get at pharmacy Vital Signs Date Vital Result Comment 05/03/2019 10:21am Weight 128.00 lb Heart Rate 80 /min irregular BP Systolic 150 mmHg BP Diastolic 90 mmHg BP Systolic Recheck 138 mmHg BP Diastolic Recheck 80 mmHg Respiratory Rate 18 /min Height 59.5 inches 4'11.50" BMI (Body Mass Index) 25.4 kg/m2 11/21/2018 3:17pm Weight 132.00 lb Heart Rate 76 /min BP Systolic 112 mmHg BP Diastolic 70 mmHg Respiratory Rate 18 /min Height 59.5 inches 4'11.50" BMI (Body Mass Index) 26.2 kg/m2 Results Test Acquired Date Facility Test Result H/L Range Note CBC with 11/21/2018 [facility] White Blood 4.4 K/uL Normal 3.1-10.7 1 Auto (315)- - Count Diff-fcmg Red Blood Count 4.52 M/uL Normal 3.90-5.40 Hemoglobin 14.1 gm/dL Normal 11.6-15.8 Hematocrit 42.7 % Normal 36.0-46.1 Mean Cell Volume 94.5 fl Normal 80.9-99.0 Mean Corpuscular HGB 31.2 pg Normal 25.9-32.7 Mean Corpuscular HGB Conc 33.0 g/dL Normal 30.8-34.3 Platelet Count 126 K/uL Low 155-360 Red Cell Distri Width SD 46.1 fl Normal 36-47 Red Cell Distri Width %CV 13.3 % Normal 11.7-14.4 Mean Platelet Volume 12.4 fl Normal 8.9-12.4 Neut% 54.0 % Normal 40.4-72.8 Lymph % 35.4 % Normal 20.0-42.0 Chaves % 8.6 % Normal 4.3-13.2 Eo% 1.1 % Normal 0.0-6.6 Bas% 0.7 % Normal 0.0-1.1 Immature Grans 0.2 % Normal 0.0-5.0 NRBC % 0.0 /100WBC < 10/ 100 WBC Neut# 2.38 K/uL Normal 1.8-7.0 Lymph # 1.56 K/uL Normal 1.0-4.0 Chaves # 0.38 K/uL Normal 0.3-0.9 Eos # 0.05 K/uL Normal 0.0-0.5 Baso # 0.03 K/uL Normal 0.0-0.1 Immature Grans Absolute 0.01 K/uL NRBC # 0.00 K/uL Laboratory test 11/21/2018 [facility] Sedimentation 5 mm/ hr Normal 2-55 2 finding (315)- - Rate Comprehensive 11/21/2018 [facility] Glucose 82 mg/dL Normal 74-106 Metabolic Panel (315)- - BUN 23 mg/dL High 7-18 Creatinine 1.0 mg/dL Normal 0.6-1.3 Glom Filtration Rate, Estimate 57 mL/min >60 If >60 mL/min >60 3 BUN/Creat 23.0 ratio Sodium 137 mmol/L Normal 136-145 Potassium 3.8 mmol/L Normal 3.5-5.1 Chloride 102 mmol/L Normal 98-107 Carbon Dioxide 29 mmol/L Normal 21-32 Anion Gap 6 mEq/L Low 8-16 Calcium 9.2 mg/dL Normal 8.5-10.1 Total Protein 7.4 g/dL Normal 6.4-8.2 Albumin 3.6 g/dL Normal 3.4-5.0 Globulin 3.8 g/dL Normal 1.9-4.3 Alb/Glob 0.9 ratio Bilirubin,Total 0.3 mg/dL Normal 0.2-1.0 Sgot/Ast 21 U/L Normal 15-37 SGPT/Alt 15 U/L Normal 12-78 Alkaline Phosphatase 101 U/L Normal 45-117 Laboratory test finding 11/21/2018 [facility] CK 102 U/L Normal 26-192 (315)- - C-Reactive Protein,Quant 3.6 mg/L High <3.0 1 I10, M35.3 2 This result was obtained with an ESR method that is not based on the standard Westergren Method. When comparing results obtained from the traditional Westergren ESR and this method it is important to refer to the reference range for each method. Method: Capillary Photometry 3 Note: Persistent reduction for 3 months or more in an eGFR <60 mL/min/1.73 m2 defines CKD. Patients with eGFR values >/=60 mL/min/1.73 m2 may also have CKD if evidence of persistent proteinuria is present. The original MDRD equation for estimated GFR is not valid for patients less than 18 years of age. Additional information may be found at www.kdoqi.org. Procedures Date Code Description Status 02/16/2018 68700620 Mammogram Completed 02/07/2017 [id number] Bone Mineral Density Test Completed Medical Devices Description No Information Available Encounters Type Date Location Provider Dx Diagnosis Office Visit 11/21/2018 [facility] Mi Grajeda MD I10 Essential (primary) 3:00p hypertension I50.33 Acute on chronic diastolic (congestive) heart failure I34.8 Other nonrheumatic mitral valve disorders I11.0 Hypertensive heart disease with heart failure M35.3 Polymyalgia rheumatica I27.29 Other secondary pulmonary hypertension D69.6 Thrombocytopenia, unspecified I48.0 Paroxysmal atrial fibrillation Z85.3 Personal history of malignant neoplasm of breast M15.0 Primary generalized (osteo)arthritis Z68.26 Body mass index (BMI) 26.0-26.9, adult Assessments Date Code Description Provider 05/03/2019 Z00.01 Encounter for general adult medical Mi Grajeda MD examination with abnorma 05/03/2019 I10 Essential (primary) hypertension Mi Grajeda MD 05/03/2019 I50.33 Acute on chronic diastolic (congestive) heart Mi Grajeda MD failure 05/03/2019 I34.8 Other nonrheumatic mitral valve disorders Mi Grajeda MD 05/03/2019 I11.0 Hypertensive heart disease with heart failure Mi Grajeda MD 05/03/2019 M35.3 Polymyalgia rheumatica Mi Grajeda MD 05/03/2019 I27.29 Other secondary pulmonary hypertension Mi Grajeda MD 05/03/2019 D69.6 Thrombocytopenia, unspecified Mi Grajeda MD 05/03/2019 I48.0 Paroxysmal atrial fibrillation Mi Grajeda MD 05/03/2019 Z85.3 Personal history of malignant neoplasm of Mi Grajeda MD breast 05/03/2019 M15.0 Primary generalized (osteo)arthritis Mi Grajeda MD 05/03/2019 I73.9 Peripheral vascular disease, unspecified Mi Grajeda MD 05/03/2019 K63.5 Polyp of colon Mi Grajeda MD 05/03/2019 Z13.31 Encounter for screening for depression Mi Grajeda MD 05/03/2019 Z13.39 Encounter for screening examination for other Mi Grajeda MD mental health and behavioral disorders 05/03/2019 E83.42 Hypomagnesemia Mi Grajeda MD 05/03/2019 M85.9 Disorder of bone density and structure, Mi Grajeda MD unspecified 05/03/2019 Z68.25 Body mass index (BMI) 25.0-25.9, adult Mi Grajeda MD 11/21/2018 I10 Essential (primary) hypertension Mi Grajeda MD 11/21/2018 I50.33 Acute on chronic diastolic (congestive) heart Mi Grajeda MD failure 11/21/2018 I34.8 Other nonrheumatic mitral valve disorders Mi Grajeda MD 11/21/2018 I11.0 Hypertensive heart disease with heart failure Mi Grajeda MD 11/21/2018 M35.3 Polymyalgia rheumatica Mi Grajeda MD 11/21/2018 I27.29 Other secondary pulmonary hypertension Mi Grajeda MD 11/21/2018 D69.6 Thrombocytopenia, unspecified Mi Grajeda MD 11/21/2018 I48.0 Paroxysmal atrial fibrillation Mi Grajeda MD 11/21/2018 Z85.3 Personal history of malignant neoplasm of Mi Grajeda MD breast 11/21/2018 M15.0 Primary generalized (osteo)arthritis Mi Grajeda MD 11/21/2018 Z68.26 Body mass index (BMI) 26.0-26.9, adult Mi Grajeda MD Plan of Treatment Future Appointment(s):10/25/2019 11:00 am - Mi Grajeda MD at [facility]2018 - Mi Grajeda MDZ00.01 Encounter for general adult medical examination with abnormaComments:medicare physicalWellness form reviewed. 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 Screening for colon cancer: see discussion Immunizations reviewed: Pneumovax, prevnar are current Tetanus done 11/24/17Zostavax done Shingrix #1 done, waiting for #2 Annual flu vax. doneHealth care proxy -needs to bring in remindedGave MOLST forms, please review, willcomplete next visit Healthy lifestyle recommendations: Encouraged healthy diet with meats simply prepared, fresh fruits and veg when able also simply prepared, whole grains, 3 dairies per day non fat. Recommend consumption of omega 3 healthy fats daily. Encouraged daily exercise 30 - 60 min daily/ or150,min per week. Encouraged at least 2 qrts water per day with more for sweaty exercise. [employer] 7-8 hours of sleep at night. She avoids tobacco and alcohol and drugsFollow up:obtain last heme/onc note Dr Frances; labs today; next visit 170-180 days oc15 rtn fu labs after visit review [id number] Essential (primary) hypertensionNew Labs:CBC with Auto Diff-fcmg, Ordered: 05/03/19Comprehensive Met Panel-FCMG, Ordered: Lipid, Ordered: 05/03/19Comments:Htn--BPs appear stable and in good control, reminded goal of BP < 140/90 ideally. Continue current meds, please call for medication side effects such as cough, rash or any concerns. Encouraged diet modified in fat and no added salt. Limit alcohol to < 1 per day. Encouraged regular exercise of30 min most days per week. Encouraged pt to continue to monitor BP and call if > 140/90 on a regular basis. Please call if you feel your blood pressure is under 110 systolic and/or causing yousymptoms such as dizziness, lightheadedness, or other concerns.I50.33 Acute on chronic diastolic (congestive) heart failureComments:congestive heart failure--Appears compensated without exacerbation. Please call if you develop increased Shortness of breath at rest/exertion/nighttime, chestpain, swelling, edema, or increase of weight of 5# in a week. check weight daily You should be evaluated. call for any concerns. co managed Dr Guillory up:Followup:. ( Follow up)Miscellaneous:The patient was instructed to be weighed daily around the same time of day and with the same amount of clothing on in order to be able to continually assess the stability and treatment of this condition. The patient is to report back to the provider in a timely fashion these recorded results.I34.8 Other nonrheumatic mitral valve disordersComments:mitral valve disease sp ring repair 2006comanaged with dr burrows. seek care for shortness of breath, swelling, dizziness, any kzqruimmJ67.0 Hypertensive heart disease with heart failureComments:Hypertensive cardiomyopathy Continue current treatment, watch for weight gain, treat with diuretics as noted.M35.3 Polymyalgia rheumaticaNew Labs:Esr-FCMG, Ordered: 05/03/19CPK, Ordered: Comments:PMR. no symptoms, she gets achy check labs seek care for worse muscle mpquiU79.29 Other secondary pulmonary hypertensionComments:pulmonary hypertension on echohas fu with Dr Burrowswatch for weight gain and edema as main kvoznvxuW76.6 Thrombocytopenia, unspecifiedNew Labs:Manual Differential, Ordered: 05/03/19Comments:recheck labs call for bleeding and xglmcevyG71.0 Paroxysmal atrial fibrillationNew Labs:Digoxin -RL, Ordered: 05/03/19Comments: atrial fibrillation--Rate controlled, sounds regular on exam and continue eliquis therapy. Call for chest pain, shortness of breath, palpitations, swelling or excessive bleeding, or any concerns.care comanaged with dr Calle85.3 Personal history of malignant neoplasm of breastComments:History of breast cancer , right annual followup with Dr FrancesM15.0 Primary generalized ( osteo)arthritisComments:osteoarthritis. Encourage pt to continue and active lifestyle with regular exercise, range of motion activities. 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 Recommend healthy diet, omega 3 fats in diet, glucosamine/chondroitin, good amounts of calcium/vit d as wel.I73.9 Peripheral vascular disease, unspecifiedComments:ho abnormal abnormal ED she has some foot pain and leg cramps at times. continue supportive careK63.5 Polyp of colonComments:Pt with h/ o colon polyps, last colonoscopy 12/2017 dr guillaume, with polyps found, next in 3 yr Please call for blood in stool, changes in bowel habits, any concerns. Colonoscopy can still miss polyps. We will assess when due to see if this study or something else should be doneZ13.31 Encounter for screening for depressionComments:screen negative for tyojykbvnwJ43.39 Encounter for screening examination for other mental health and behavioral disordersComments:Alcohol screening zunnwliyC30.42 HypomagnesemiaNew Labs:Magnesium, Ordered: Comments:Pt with vit D deficiency on replacement, check levels with next labs. Continue replacement and recheck periodically. Be certain to take your vit d with your main meal that has meat/fat/oil as this is fat soluble. New recommended goals are levels 40 - 85 check vit d and mag fipevyL51.9 Disorder of bone density and structure, unspecifiedNew Labs:Vit D 25Oh, Ordered : 05/03/19Comments:osteopenia--follow up regarding osteoporosis disease and medications, osteopenia, started meds 2011, cont for 5 years, now off meds since 2018recommend 2- 3 dairy/dairy equivalent servings per day, if not then no more than calcium 600mg plus d 400 iu twice daily, take with food. Any more calcium that this may increase calcification in the rest of the body, such as vascular disease and kidney stones.Z68.25 Body mass index (BMI) 25.0-25.9, adultComments:Recommend healthy reduced calorie diet and regular exercise. Functional Status Functional Condition Comment Date Status GLASSES Active Hearing Aid in Both ears Active Mental Status Description No Information Available Referrals Description No Information Available
--- OUTSIDE RECORDS SUMMARY | 2019-05-25 17:45 | XMS REPORT | Continuity of Care Document ---
:1935 External Reference #:[id number] Author Name Jacqueline Monsivais N.P. (transmitted by agent of provider Linda Phelps) Address [address] [place] [address] Care Team Providers Name Role Phone Mi Grajeda MD - Family Care Team Information [employer] [phone] Medicine Sudheer Wallace MD - Thoracic Care Team Information [employer] Surgery (Cardiothoracic Vascular Surgery) Problems Active Problems Provider Date Giant cell arteritis Thompson Messer M.D. Onset: 03/13/2012 Neoplasm of breast Thompson Messer M.D. Onset: 03/13/2012 Disorder of bursa of shoulder region Thompson Messer M.D. Onset: 06/05/2012 Mitral valve disorder Mi Burrows M.D. Onset: 04/16/2013 Disorder of shoulder Mi Burrows M.D. Onset: 04/16/2013 Dyspnea Mi Burrows M.D. Onset: 04/16/2013 Tricuspid valve disorder, non-rheumatic Mi Burrows M.D. Onset: 06/03/2014 Left heart failure Mi Burrows M.D. Onset: 06/03/2014 Congestive heart failure Mi Burrows M.D. Onset: 06/03/2014 History of fall Mi Burrows M.D. Onset: 06/03/2014 Atrial fibrillation Mi Burrows M.D. Onset: 06/03/2014 Chronic diastolic heart failure Mi Burrows M.D. Onset: 09/11/2015 Essential hypertension Mi Burrows M.D. Onset: 07/27/2016 Chest pain Shanti Esquivel NP Onset: 03/07/2018 Disorder of magnesium metabolism Shanti Husainfield Alvin NP Onset: 03/07/2018 Premature beats Shanti Husainfield Alvin NP Onset: 03/08/2018 Rheumatic disease of tricuspid valve Dominique June N.P. Onset: 03/11/2018 Urinary tract infectious disease Dominique June N.P. Onset: 03/11/2018 Pulmonary arterial hypertension Dominique Jnue N.P. Onset: 03/11/2018 Paroxysmal atrial fibrillation Mi Burrows M.D. Onset: 02/01/2019 Social History Type Date Description Comments Sex Unknown Tobacco Use Start: Unknown Never Smoked Cigarettes Smoking Status Reviewed: 04/10/19 Never Smoked Cigarettes ETOH Use Denies alcohol use Tobacco Use Start: Unknown Patient has never smoked Recreational Drug Use Denies Drug Use Exercise Type/Frequency Exercises sporadically Allergies, Adverse Reactions, Alerts Active Allergies Reaction Severity Comments Date Statins 02/12/2014 Arimidex felt terrible, SOB and more. 08/19/2017 Inactive Allergies NKDA 01/07/2011 Medications Active Medications SIG Qnty Indications Ordering Date Provider Slow-Mag take 1 tab 2x 60tabs Jacqueline S. 71.5-119mg Tablets DR daily Loi, N.P. 9 Digox 1 tab PO every 90tabs I49.3 Mi Burrows, 250mcg Tablets other day M.D. 9 alternating with 1/2 tab every other day Eliquis 1 tablet by mouth 180tabs I48.1 Mi Burrows, 2.5mg Tablets twice a day M.D. 9 Metoprolol Succinate ER 1/2 tab by mouth 30tabs I48.1 Jacqueline S. 25mg at bedtime Loi, N.P. 9 Tablets ER 24HR Spironolactone 1/2 tablet by 45tabs I50.32 Jacqueline S. 25mg Tablets mouth Mondays, Loi, N.P. 6 Wednesdays, and Fridays Hydrochlorothiazide 1 by mouth on 90caps Jacqueline S. 12.5mg Tuesdays and Loi N.P. 4 Capsules Restasis 1 gtt both eyes Unknown 00/00/000 0.05% Emulsion twice daily Am/PM 0 History Medications Magnesium-Oxide 1 by mouth 30tabs Mi Burrows, 03/09/2019 - 400(241.3mg) every day M.D. 04/10/2019 mg Tablets Potassium Chloride Lois 1 by mouth 30tabs I48.1 Jacqueline Monsivais, 2018 - ER daily (not N.P. 12/26/2018 20Meq Tablets ER taking) Immunizations CPT Code Status Date Vaccine Lot # [id number] Given 05/10/2012 Zoster (Zostavax) [id number] Given 04/12/2012 Fluzone Vaccine [id number] Given 03/19/2011 Afluria Vaccine [id number] Vital Signs Date Vital Result Comment 04/10/2019 9:47am Height 60 inches 5'0" Weight 133.00 lb with shoes Heart Rate 74 /min BP Systolic Sitting 122 mmHg Lue reg cuff BP Diastolic Sitting 90 mmHg Lue reg cuff BP Systolic Standing 106 mmHg Lue reg cuff BP Diastolic Standing 80 mmHg Lue reg cuff Respiratory Rate 14 /min BMI (Body Mass Index) 26.0 kg/m2 Ejection Fraction 55-60% ECHO 06/08/2018 03/09/2019 1:26pm Heart Rate 80 /min BP Systolic Sitting 130 mmHg Lue, reg cuff BP Diastolic Sitting 80 mmHg Lue, reg cuff Respiratory Rate 12 /min Results Test Date Facility Test Result H/L Range Note Laboratory test 04/06/2019 [facility] Digoxin 1.3 ng/ml Normal 0.8-2.0 finding [address] [place] [address] [phone] Laboratory test 03/09/2019 [facility] Digoxin 2.6 ng/ml Critical high 0.8-2.0 1 finding [address] [place] [address] [phone] Basic Metabolic 03/09/2019 [facility] Sodium 132 mmol/L Low 135-145 Panel [address] [place] [address] [phone] Potassium 4.5 mmol/L Normal 3.5-5.0 Chloride 95 mmol/L Low 101-111 Co2 Carbon Dioxide 32 mmol/L Normal 22-32 Anion Gap 5 mmol/L Normal 2-11 Glucose 99 mg/dL Normal 70-100 Blood Urea Nitrogen 12 mg/dL Normal 6-24 Creatinine 0.94 mg/dL Normal 0.51-0.95 BUN/Creatinine Ratio 12.8 Normal 8-20 Calcium 9.0 mg/dL Normal 8.6-10.3 Egfr Non- 57.2 >60 Egfr 69.2 >60 2 Laboratory test 03/09/2019 [facility] Magnesium 1.6 mg/dL Low 1.9-2.7 finding [address] [place] [address] [phone] Laboratory test 02/20/2019 [facility] Digoxin 1.7 ng/ml Normal 0.8-2.0 finding [address] [place] [address] [phone] Laboratory test 12/26/2018 [facility] Magnesium <pending> finding [address] [place] [address] [phone] Laboratory test 12/08/2018 [facility] Magnesium 1.9 mg/dL Normal 1.9-2.7 finding [address] [place] [address] [phone] TSH (Thyroid Stim Horm) 3.10 mcIU/mL Normal 0.34-5.60 Basic Metabolic 12/08/2018 [facility] Sodium 137 mmol/L Normal 135-145 Panel [address] [place] [address] [phone] Chloride 104 mmol/L Normal 101-111 Co2 Carbon Dioxide 27 mmol/L Normal 22-32 Glucose 98 mg/dL Normal 70-100 Blood Urea Nitrogen 26 mg/dL High 6-24 Creatinine 1.06 mg/dL High 0.51-0.95 BUN/Creatinine Ratio 24.5 High 8-20 Calcium 9.5 mg/dL Normal 8.6-10.3 Egfr Non- 49.8 >60 Egfr 60.2 >60 3 Potassium 5.1 mmol/L High 3.5-5.0 Anion Gap 6 mmol/L Normal 2-11 CBC Auto 12/08/2018 [facility] White Blood 4.7 10^3/uL Normal 3.5-10.8 Diff [address] [facility] [place] [address] [phone] Red Blood Count 4.67 10^6/uL Normal 3.70-4.87 [...] Blood Cells % 0.1 Urinalysis Profile 12/07/2018 [facility] Urine Color Yellow [address] [place] [address] [phone] Urine Appearance Clear Urine Specific [place] 1.011 Normal 1.010-1.030 Urine pH 5.0 Normal [...] Present Abnormal Absent Urine Culture And 12/07/2018 [facility] Urine Culture SEE RESULT [address] [place] [address] [phone] 1 Critical Result DIGN:2.6 Called to HUBERT Marcelo RN/CAROLYNN at: 13:42:22 by:[id number] Read back by:HUBERT Marcelo RN/CAROLYNN 2 Because [...] 5 Kidney failure <15 (or dialysis) 4 [id number] 5 SEE RESULT BELOW Name: Edie CRAFT : [address]: Jacqueline Monsivais NP Acct: [id number] Unit: [id number] AGE: 83 Location: [facility] Re12/07/18 SEX: F Status: REG REF SPEC: [id number] VAZQUEZ: 12/07/18-[address] [facility] [address]: Jacqueline Monsivais NP REQ: [id number] RECD: 12/07/18 STATUS: COMP CIRA DR: Mi Burrows MD _ SOURCE: URINE SPDESC: ORDERED: Urine Culture COMMENTS: [id number] Procedure Result Reported Site Urine Culture Final 12/08/18- 1212 ML No growth of clinically significant organisms * ML - Main Lab . END OF REPORT DEPARTMENT OF PATHOLOGY, [address] [place] [address] Augustine Torres M.D. Director [facility] # [id number] Procedures Date Code Description Status 04/10/2019 41429 EKG Tracing & Interpretation Completed 03/09/2019 01144 EKG Tracing & Interpretation Completed 01/09/2019 17230 Holter Monitor Review (24 hr)dr review & interp only Completed 01/03/2019 60200 ECG Monitor/Recording W/Visual Superimposition Completed Scanning 12/26/2018 96631 EKG Tracing & Interpretation Completed 12/08/2018 03128 Moderate Sedation Services; Same Phys Intl 15 Mins; PT Completed >= 5 Years 12/08/2018 93247 Color Flow Doppler/Interp & Reprt Completed 12/08/2018 03088 Pulse Wave/Continuous-Interp.RPT Completed 12/08/2018 36805 Echocardiography, Transesophageal, Real Time W/Image Completed 2D W/W/O M-M 12/08/2018 17425 EKG, Interpretation Only Completed 12/08/2018 39844 Cardioversion Completed 12/07/2018 40230 EKG Tracing & Interpretation Completed 03/27/2015 [id number] Bone Mineral Density Test Completed Medical Devices Description No Information Available Encounters Type Date Location Provider Dx Diagnosis Office Visit 02/01/2019 [facility] Mi Burrows, I48.0 Paroxysmal atrial 1:30p Of Valet M.D. fibrillation I34.1 Nonrheumatic mitral (valve) prolapse I49.3 Ventricular premature depolarization Office Visit 12/26/2018 1:30p [facility] Jacqueline SCarlos I48.0 Paroxysmal atrial Of Devaughn Monsivais, N.P. fibrillation I27.20 Pulmonary hypertension, unspecified I36.1 Nonrheumatic tricuspid (valve) insufficiency I34.0 Nonrheumatic mitral (valve) insufficiency R94.31 Abnormal electrocardiogram [ECG] [EKG] R53.83 Other fatigue Office Visit 12/07/2018 12:00p [facility] Jacqueline S. I27.20 Pulmonary Cardiology Of Loi, N.P. hypertension, Valet unspecified I36.1 Nonrheumatic tricuspid (valve) insufficiency I34.0 Nonrheumatic mitral (valve) insufficiency R06.02 Shortness of breath I48.1 Persistent atrial fibrillation N39.0 Urinary tract infection, site not specified Assessments Date Code Description Provider 04/10/2019 I48.0 Paroxysmal atrial fibrillation Jacqueline Monsivais, N.P. 04/10/2019 I34.1 Nonrheumatic mitral (valve) prolapse Jacqueline S. Loi, N.P. 04/10/2019 I49.3 Ventricular premature depolarization Jacqueline S. Loi, N.P. 04/10/2019 R94.31 Abnormal electrocardiogram [ECG] [EKG] Jacqueline S. Foster, N.P. 04/10/2019 I27.20 Pulmonary hypertension, unspecified Jacqueline S. Loi, N.P. 03/09/2019 I48.0 Paroxysmal atrial fibrillation Nurse Visit IC 02/01/2019 I48.0 Paroxysmal atrial fibrillation Mi Burrows M.D. 02/01/2019 I34.1 Nonrheumatic mitral (valve) prolapse Mi Burrows M.D. 02/01/2019 I49.3 Ventricular premature depolarization Mi Burrows M.D. 01/09/2019 I48.0 Paroxysmal atrial fibrillation Mi Burrows M.D. 01/09/2019 I49.3 Ventricular premature depolarization Mi Burrows M.D. 01/03/2019 I48.0 Paroxysmal atrial fibrillation Nurse Visit 01/03/2019 I49.3 Ventricular premature depolarization Nurse Visit 12/26/2018 R94.31 Abnormal electrocardiogram [ECG] [EKG] Mi Burrows M.D. 12/26/2018 I48.0 Paroxysmal atrial fibrillation Jacqueline S. Loi, N.P. 12/26/2018 I27.20 Pulmonary hypertension, unspecified Jacqueline S. Loi, N.P. 12/26/2018 I36.1 Nonrheumatic tricuspid (valve) Jacqueline S. Foster, N.P. insufficiency 12/26/2018 I34.0 Nonrheumatic mitral (valve) Jacqueline S. Foster, N.P. insufficiency 12/26/2018 R94.31 Abnormal electrocardiogram [ECG] [EKG] Jacqueline S. Loi, N.P. 12/26/2018 R53.83 Other fatigue Jacqueline S. Loi, N.P. 12/08/2018 Z13.6 Encounter for screening for Jt Evin Perkins M.D., [facility], cardiovascular disorders [facility] 12/08/2018 I48.91 Unspecified atrial fibrillation Paulino Soto DO [facility] 12/07/2018 R94.31 Abnormal electrocardiogram [ECG] [EKG] Qutaybeh S. Maghaydah, M.D. 12/07/2018 I27.20 Pulmonary hypertension, unspecified Jacqueline Monsivais, N.P. 12/07/2018 I36.1 Nonrheumatic tricuspid (valve) Jacqueline Monsivais, N.P. insufficiency 12/07/2018 I34.0 Nonrheumatic mitral (valve) Jacqueline Monsivais, N.P. insufficiency 12/07/2018 R06.02 Shortness of breath Jacqueline Monsivais, N.P. 12/07/2018 I48.1 Persistent atrial fibrillation Jacqueline Monsivais N.P. 12/07/2018 N39.0 Urinary tract infection, site not Jacqueline Monsivais, N.P. specified Plan of Treatment Future Appointment(s):06/28/2019 9:10 am - Meng Wolf MD at [facility] Rgxlhzgbhag97/22/2019 - Jacqueline Monsivais N.P.I48.0 Paroxysmal atrial gzikugptzvkgI56.1 Nonrheumatic mitral (valve) caxvpabvH08.3 Ventricular premature depolarizationFollow up:07/2019 OV LSRecommendations:Decrease metoprolol to 1/2 (25mg) tab daily Continue digoxin. Ill discuss with Dr burrows whether wecan increase at all to suppress PVCs. We may want a holter. We will check in with you in about 3-4 weeks and see how you are feeling on lower dose metoprolol.R94.31 Abnormal electrocardiogram [ECG] [EKG]I27.20 Pulmonary hypertension, unspecifiedRecommendations:Decrease HCTZ to 1 tab on Tue and Janette only Functional Status Description No Information Available Mental Status Description No Information Available Referrals Description No Information Available
[2019-05-25 17:53] LABS: ABS Eosinophils 0.1 10^3/ul (0-0.6); ABS Lymphocytes 1.2 10^3/ul (1.0-4.8); ABS Monocytes 0.5 10^3/ul (0-0.8); ABS Neutrophils 2.9 10^3/ul (1.5-7.7); Eosinophil % 1.5 %; Hematocrit 42 % (35-47); Hemoglobin 14.5 g/dL (12.0-16.0); Lymphocyte % 25.9 %; Mean Corpuscular HGB Conc 34 g/dL (31-36); Mean Corpuscular Hemoglobin 31 pg (27-31); Mean Corpuscular Volume 90 fL (80-97); Mean Platelet Volume 9.8 fL (7.4-10.4); Nucleated Red Blood Cells % 0.2; Platelet Count 112 10^3/uL (150-450); Red Blood Count 4.69 10^6 /uL (3.70-4.87); Red Cell Distribution Width 14 % (10-15); White Blood Count 4.7 10^3/uL (3.5-10.8)
[2019-05-25 17:58] LABS: INR 1.33 (0.82-1.09)
[2019-05-25 18:09] LABS: ALT 12 U/L (7-52); AST 19 U/L (13-39); Albumin 3.9 g/dL (3.2-5.2); Albumin/Globulin Ratio 1.1 (1-3); Alkaline Phosphatase 99 U/L (34-104); Anion Gap 8 mmol/L (2-11); BUN/Creatinine Ratio 21.5 (8-20); Blood Urea Nitrogen 20 mg/dL (6-24); CO2 Carbon Dioxide 27 mmol/L (22-32); Calcium 9.5 mg/dL (8.6-10.3); Chloride 99 mmol/L (101-111); EGFR Non-African American 57.9 (>60); Globulin 3.4 g/dL (2-4); Glucose 101 mg/dL (70-100); Potassium 4.1 mmol/L (3.5-5.0); Sodium 134 mmol/L (135-145); Total Protein 7.3 g/dL (6.4-8.9)
[2019-05-25 18:11] LABS: Troponin I 0.03 ng/mL (<0.03)
[2019-05-25 21:38] LABS: Troponin I 0.03 ng/mL (<0.03)
--- NOTE | 2019-05-25 22:08 | ED ---
HPI Chest Pain - HPI Summary HPI Summary: This pt is an 83 Y/O F [facility] after following up with her PCP who recommended coming into [facility] for a CP and an issue her PCP found on a blood test. Her blood tests that were drawn at her PCP's office showed an elevated troponin. She states that she had mid-central chest pain that lasted for 3-4 days. She states that she currently does not have any pain. She states that her CP stopped on 05/23/19. She states that she had a valve repaired 10 years ago and has had numerous stress tests. She denies any SOB, headaches, N/V/D, diaphoresis, and fevers. She states that she has no aggravating or alleviating factors. She states that she has a PMHx of HTN and hypercholesterolemia. - History of Current Complaint Chief Complaint: EDChestPainROMI Time Seen by Provider: 05/25/19 21:19 Hx Obtained From: Patient Hx Last Menstrual Period: menopause Onset/Duration: Started Days Ago, Resolved Timing: Constant, Lasting Days - 3-4 Initial Severity: Moderate Current Severity: None Pain Intensity: 0 Pain Scale Used: 0-10 Numeric Chest Pain Location: Mid Sternal Chest Pain Radiates: No Aggravating Factor(s): Nothing Alleviating Factor(s): Nothing Associated Signs and Symptoms: Positive: Negative - diarrhea, Other: - Previous blood test showed an elevated Troponin. Negative: Chest Pain, Headaches, Shortness of Breath, Fever, Diaphoresis, Nausea, Cough, Vomiting - Additional Pertinent History Primary Care Physician: [id number] - Allergy/Home Medications Allergies/Adverse Reactions: Allergies Allergy/AdvReac Type Severity Reaction Status Date / Time No Known Allergies Allergy Verified 08/23/16 11:16 Home Medications: Home Medications Digoxin TAB* [Lanoxin TAB*] 1 tab PO DAILY 05/25/19 [History Confirmed 05/25/19] Restasis Multidose 1 drop BOTH EYES BID 05/25/19 [History Confirmed 05/25/19] Slow Mag EC TAB* 1 tab PO BID 05/25/19 [History Confirmed 05/25/19] PMH/Surg Hx/FS Hx/Imm Hx Previously Healthy: Yes Endocrine/Hematology History: Denies: Hx Diabetes, Hx Thyroid Disease Cardiovascular History: Reports: Hx Angina, Hx Hypertension, Hx Valvular Heart Disease, Other Cardiovascular Problems/Disorders - Annuloplasty ring Denies: Hx Coronary Artery Disease, Hx Hypercholesterolemia, Hx Myocardial Infarction Respiratory History: Denies: Hx Asthma, Hx Chronic Obstructive Pulmonary Disease (COPD) GI History: Denies: Hx Gall Bladder Disease, Hx Ulcer Musculoskeletal History: Denies: Hx Rheumatoid Arthritis, Hx Osteoporosis Sensory History: Reports: Hx Contacts or Glasses, Hx Hearing Aid Opthamlomology History: Reports: Hx Contacts or Glasses - Cancer History Cancer Type, Location and Year: rt breast Hx Chemotherapy: Yes - BREAST Hx Radiation Therapy: Yes - BREAST - Surgical History Surgical History: Yes Surgery Procedure, Year, and Place: AORTA SURGERY 2005,lumpectomy right 2012 - Immunization History Date of Tetanus Vaccine: 2016 Date of Influenza Vaccine: 2017 Immunizations Up to Date: Yes Infectious Disease History: No Infectious Disease History: Denies: Hx Hepatitis, Hx Human Immunodeficiency Virus (HIV), Traveled Outside the in Last 30 Days - Family History Known Family History: Positive: Hypertension, Other - FHx of breast cancer Negative: Cardiac Disease, Diabetes - Social History Occupation: Retired Lives: Alone Alcohol Use: None Hx Substance Use: No Substance Use Type: Reports: None Hx Tobacco Use: No Smoking Status (MU): Never Smoked Tobacco Have You Smoked in the Last Year: No Review of Systems - ROS Summary Review of Systems Summary: Home Medications Medication Instructions Recorded Confirmed Type Spironolactone TAB* [Aldactone TAB 12.5 mg PO EVERY OTHER DAY 08/23/16 12/08/18 History 25 MG*] Aspirin EC TAB* [Ecotrin EC Low 81 mg PO QAM 03/07/18 12/08/18 History Dose 81 MG*] Cholecalciferol TAB* [Vitamin D 2,000 unit PO QAM 03/07/18 12/08/18 History TAB*] Cyclosporine 0.05% OPHTH (NF) 1 drop BOTH EYES BID 03/07/18 12/08/18 History [Restasis 0.05% OPHTH] Hydrochlorothiazide TAB* 12.5 mg PO EVERY OTHER DAY 03/07/18 12/08/18 History [Hydrodiuril TAB*] Apixaban [Eliquis] 2.5 mg PO BID 12/08/18 12/08/18 History Metoprolol Succinate [Metoprolol 25 mg PO DAILY 12/08/18 12/08/18 History Succinate ER] Negative: Fever, Skin Diaphoresis Cardiovascular: Other - elevated troponin on PCP blood test Negative: Chest Pain Negative: Shortness Of Breath Negative: Vomiting, Diarrhea, Nausea Negative: Headache All Other Systems Reviewed And Are Negative: Yes Physical Exam - Summary Physical Exam Summary: General: Well-developed, Well-nourished female. No acute distress. HEENT: Normocephalic, Atraumatic. Eyes: Conjuctiva normal, PERRL. Ears: TMs within normal limits. Nares: (-) discharge, (-) erythema. Oropharynx: Clear, mucous membranes moist, (-) exudates. Neck: Soft, FROM, (-) lymphadenopathy, (-) thyromegaly, (-) JVD. Cardiovascular: Normal sinus rhythm, (-) murmur. Lungs: Clear to auscultation bilaterally (-) wheezes, (-) rales, (-) rhonchi. Abdomen: Soft, non-tender, non-distended, (-) organomegaly, normal bowel sounds. Back: (-) CVA tenderness Extremities: No edema. Skin: Warm, dry, (-) rash. Neuro: Alert and oriented x3, no focal deficits. Psychiatric: Mood normal, affect normal. Triage Information Reviewed: Yes Vital Signs On Initial Exam: Initial Vitals Temp Pulse Resp BP Pulse Ox 98.7 F 70 18 190/95 93 05/25/19 16:53 05/25/19 16:53 05/25/19 16:53 05/25/19 16:53 05/25/19 16:53 Vital Signs Reviewed: Yes Procedures - Sedation Patient Received Moderate/Deep Sedation with Procedure: No Diagnostics - Vital Signs Vital Signs Temp Pulse Resp BP Pulse Ox 05/25/19 18:49 97.2 F 86 18 185/103 98 05/25/19 16:53 98.7 F 70 18 190/95 93 - Laboratory Lab Results: Lab Results 05/25/19 05/25/19 05/25/19 Range/Units 17:36 17:36 17:36 WBC 4.7 (3.5-10.8) 10^3/uL RBC 4.69 (3.70-4.87) 10^6 /uL Hgb 14.5 (12.0-16.0) g/dL Hct 42 (35-47) % MCV 90 (80-97) fL MCH 31 (27-31) pg MCHC 34 (31-36) g/dL RDW 14 (10-15) % Plt Count 112 L (150-450) 10^3/uL MPV 9.8 (7.4-10.4) fL Neut % (Auto) 62.5 % Lymph % (Auto) 25.9 % [place] % (Auto) 9.6 % Eos % (Auto) 1.5 % Baso % (Auto) 0.5 % Absolute Neuts (auto) 2.9 (1.5-7.7) 10^3/ul Absolute Lymphs (auto) 1.2 (1.0-4.8) 10^3/ul Absolute Monos (auto) 0.5 (0-0.8) 10^3/ul Absolute Eos (auto) 0.1 (0-0.6) 10^3/ul Absolute Basos (auto) 0.0 (0-0.2) 10^3/ul Absolute Nucleated RBC 0.0 10^3/ul Nucleated RBC % 0.2 INR (Anticoag Therapy) 1.33 H (0.82-1.09) Sodium 134 L (135-145) mmol/L Potassium 4.1 (3.5-5.0) mmol/L Chloride 99 L (101-111) mmol/L Carbon Dioxide 27 (22-32) mmol/L Anion Gap 8 (2-11) mmol/L BUN 20 (6-24) mg/dL Creatinine 0.93 (0.51-0.95) mg/dL Est GFR ( Amer) 70.0 (>60) Est GFR (Non-Af Amer) 57.9 (>60) BUN/Creatinine Ratio 21.5 H (8-20) Glucose 101 H (70-100) mg/dL Calcium 9.5 (8.6-10.3) mg/dL Total Bilirubin 0.50 (0.2-1.0) mg/dL AST 19 (13-39) U/L ALT 12 (7-52) U/L Alkaline Phosphatase 99 (34-104) U/L Troponin I 0.03 H* (<0.03) ng/mL Total Protein 7.3 (6.4-8.9) g/dL Albumin 3.9 (3.2-5.2) g/dL Globulin 3.4 (2-4) g/dL Albumin/Globulin Ratio 1.1 (1-3) 05/25/19 Range/Units 21:06 WBC (3.5-10.8) 10^3/uL RBC (3.70-4.87) 10^6 /uL Hgb (12.0-16.0) g/dL Hct (35-47) % MCV (80-97) fL MCH (27-31) pg MCHC (31-36) g/dL RDW (10-15) % Plt Count (150-450) 10^3/uL MPV (7.4-10.4) fL Neut % (Auto) % Lymph % (Auto) % [place] % (Auto) % Eos % (Auto) % Baso % (Auto) % Absolute Neuts (auto) (1.5-7.7) 10^3/ul Absolute Lymphs (auto) (1.0-4.8) 10^3/ul Absolute Monos (auto) (0-0.8) 10^3/ul Absolute Eos (auto) (0-0.6) 10^3/ul Absolute Basos (auto) (0-0.2) 10^3/ul Absolute Nucleated RBC 10^3/ul Nucleated RBC % INR (Anticoag Therapy) (0.82-1.09) Sodium (135-145) mmol/L Potassium (3.5-5.0) mmol/L Chloride (101-111) mmol/L Carbon Dioxide (22-32) mmol/L Anion Gap (2-11) mmol/L BUN (6-24) mg/dL Creatinine (0.51-0.95) mg/dL Est GFR ( Amer) (>60) Est GFR (Non-Af Amer) (>60) BUN/Creatinine Ratio (8-20) Glucose (70-100) mg/dL Calcium (8.6-10.3) mg/dL Total Bilirubin (0.2-1.0) mg/dL AST (13-39) U/L ALT (7-52) U/L Alkaline Phosphatase (34-104) U/L Troponin I 0.03 H* (<0.03) ng/mL Total Protein (6.4-8.9) g/dL Albumin (3.2-5.2) g/dL Globulin (2-4) g/dL Albumin/Globulin Ratio (1-3) Result Diagrams: 05/26/19 05:46 05/26/19 05:46 Lab Statement: Any lab studies that have been ordered have been reviewed, and results considered in the medical decision making process. - Radiology CXR Radiology Interpretation Completed By: ED Physician Summary of Radiographic Findings: No pulmonary effusion or infiltrate. Pending offical review. - EKG 1702 Cardiac Rate: NL - 78 BPM EKG Rhythm: Sinus Rhythm ST Segment: Normal Ectopy: None Summary of EKG Findings: EKG at 1702 reveals normal sinus rhythm with rate of 78 BPM, no acute changes, no ischemic changes. This EKG was reviewed and interpreted by Dr. Correa 05/26/19 0225. Chest Pain Course/Dx - Course Course Of Treatment: 83-year-old female directly here by PCP. Patient had a regularly scheduled appointment today. She mentioned that she had been having some shortness of breath over the last few days. Worse with exertion. PCP avila blood work and found an elevated troponin. Repeat troponins here increased from .03 to .04. No EKG changes or signs of ischemia. Patient referred to the hospitalist for admission. - Diagnoses Provider Diagnoses: SOB (shortness of breath), Elevated troponin - Provider Notifications Discussed Care Of Patient With: Brian Lopez Time Discussed With Above Provider: 01:07 Instructed by Provider To: Admit As Inpatient Admit/Transition Orders Completed By ED Provider: Yes Discharge ED - Sign-Out/Discharge Documenting (check all that apply): Patient Departure - admitted All imaging exams completed and their final reports reviewed: Yes - Discharge Plan Condition: Stable Disposition: ADMITTED TO [facility] - Billing Disposition and Condition Condition: STABLE Disposition: Admitted to [facility] - Attestation Statements Document Initiated by Scribe: Yes Documenting Scribe: Ramehs Sampson Provider For Whom Scribe is Documenting (Include Credential): Zoë Correa MD Scribe Attestation: Ramesh Cardona, scribed for Zoë Correa MD on 05/26/19 at 1953. Scribe Documentation Reviewed: Yes Provider Attestation: The documentation as recorded by the Ramesh lopez accurately reflects the service I personally performed and the decisions made by me, Zoë Correa MD Status of Scribe Document: Viewed
[2019-05-26 00:20] LABS: Troponin I 0.04 ng/mL (<0.03)
[2019-05-26] MEDS ORDERED: Propofol* 100 ML IV ONE (01:05)
[2019-05-26 06:13] LABS: ABS Eosinophils 0.1 10^3/ul (0-0.6); ABS Lymphocytes 1.1 10^3/ul (1.0-4.8); ABS Monocytes 0.4 10^3/ul (0-0.8); ABS Neutrophils 3.1 10^3/ul (1.5-7.7); Eosinophil % 2.3 %; Hematocrit 42 % (35-47); Lymphocyte % 23.5 %; Mean Corpuscular HGB Conc 33 g/dL (31-36); Mean Corpuscular Hemoglobin 31 pg (27-31); Mean Corpuscular Volume 92 fL (80-97); Mean Platelet Volume 10.1 fL (7.4-10.4); Nucleated Red Blood Cells % 0.2; Platelet Count 119 10^3/uL (150-450); Red Blood Count 4.59 10^6 /uL (3.70-4.87); Red Cell Distribution Width 14 % (10-15); White Blood Count 4.7 10^3/uL (3.5-10.8)
[2019-05-26 06:26] LABS: Anion Gap 8 mmol/L (2-11); BUN/Creatinine Ratio 20.3 (8-20); Blood Urea Nitrogen 15 mg/dL (6-24); CO2 Carbon Dioxide 27 mmol/L (22-32); Calcium 8.9 mg/dL (8.6-10.3); Chloride 101 mmol/L (101-111); Cholesterol 170 mg/dL; EGFR African American 91.1 (>60); EGFR Non-African American 75.3 (>60); Glucose 118 mg/dL (70-100); HDL Cholesterol 54.6 mg/dL; LDL Cholesterol 97 mg/dL; Potassium 3.7 mmol/L (3.5-5.0); Sodium 136 mmol/L (135-145); Triglycerides 93 mg/dL
[2019-05-26 06:29] LABS: Troponin I 0.05 ng/mL (<0.03)
--- NOTE | 2019-05-26 08:29 | HP ---
CC: Dr. Mi Grajeda; Dr. Mi Marquez * ADMISSION HISTORY AND PHYSICAL: DATE OF ADMISSION: 05/26/19 PRIMARY CARE PHYSICIAN: Dr. Mi Grajeda. QUALITY ASSURANCE LAB TECHNICIAN: Dr. Mi Marquez. CHIEF COMPLAINT: Chest pain. HISTORY OF PRESENT ILLNESS: This is an 83-year-old female with past medical history of chronic diastolic heart failure, history of AFib, history of mitral valve disorder status post repair, history of neoplasm of the breast status post lumpectomy and lymph node dissection, history of polymyalgia rheumatica and giant cell arteritis, has been having chest pain which was noted to be substernal nonradiating for about 3 to 4 days. It was not limiting her and she knew that she had a PCP appointment on 05/25/19, so she finally waited and notified her PCP who performed a troponin and noted to have a troponin of 0.03 and sent the patient into the ER for further evaluation. Even prior to arrival to the ER, the patient's chest pain had completely resolved and she drove by herself to the ER. She denied any accompanying shortness of breath, any nausea , vomiting, diarrhea. She did notice that for the last 2 or 3 days her pain was worse whenever she took a deep breath, so she was thinking that her pain was not cardiac related but rather related to her lungs. She does have some chronic cough, which is unchanged in intensity. Denies any fever, chills. Denies any other palpitations, weakness, numbness, tingling, any urinary burning sensation or pain with urination. PAST MEDICAL HISTORY: As mentioned diastolic heart failure, AFib on anticoagulation, mitral valve disorder status post repair, aortic valve disorder status post repair, and neoplasm of the breast with lymph node dissection, giant cell arteritis, and polymyalgia rheumatica. 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 She does use hearing aids. She was admitted in 2017 and was noted to have a chest pain at that time and the stress test at that point conclusion was noted to be low risk and the EF was calculated to be 69%. Most recent echocardiogram from November 2018 was read as left ventricular systolic function being normal, right ventricular cavity size was normal but systolic function was mildly reduced, left atrium is severely dilated, no evidence of thrombus in the atrial cavity or appendage. Mitral valve, the patient is mitral valve repair that is functioning normally with good opening and mild mitral valve regurgitation. Tricuspid valve, there is moderate tricuspid regurgitation. HOME MEDICATIONS: The patient is currently on: 1. Restasis 1 drop both eyes twice a day. 2. Slow-Mag 1 tab p.o. b.i.d. 3. Digoxin 1 tablet oral daily. 4. Spironolactone 12.5 mg every other day. 5. Metoprolol 25 mg daily. 6. Hydrochlorothiazide 12.5 mg every other day. 7. Aspirin 81 mg every morning. 8. Eliquis 2.5 mg b.i.d. ALLERGIES: No known drug allergies. FAMILY HISTORY: Father of [place] in his 80s but otherwise noncontributory. SOCIAL HISTORY: The patient denies any smoking, alcohol or drug use; lives with her ; and has signed a MOLST form stating that she does not want to be resuscitated or intubated but is okay with a short trial of BiPAP. She previously also designated her , Matt Craft as her surrogate decision maker and secondary healthcare proxy being her sister Tamara Kuo. REVIEW OF SYSTEMS: A 14-point review of systems did not reveal any new information other than what is mentioned in the HPI. PHYSICAL EXAMINATION GENERAL: The patient is awake, alert, oriented x3, did not appear to be in any acute respiratory distress. VITAL SIGNS: In the ER, BP was noted to be 156/78, heart rate 72, respiration rate 20, saturating 96% on room air, temperature was recorded to be 98.7 maximum. HEAD AND NECK: Atraumatic, normocephalic. Bilateral pupils are reactive. Oral mucosa is moist. Neck is supple. No jugular venous distention. LUNGS: Clear to auscultation bilaterally. No wheezing, rhonchi, or rales. HEART: S1, S2. Regular rate and rhythm. ABDOMEN: Soft, nontender, nondistended. EXTREMITIES: No cyanosis, clubbing or edema. DIAGNOSTIC STUDIES/LAB DATA: CBC was unremarkable. Coagulation profile shows elevated INR at 1.33. Comprehensive metabolic panel shows sodium minimally decreased at 134 and random glucose minimally elevated at 101. Troponin 0.03 twice and then 0.04. BNP was noted to be 187. LFTs were within normal limits. PA and lateral chest x-ray did not show any changes. EKG showed ectopic atrial rhythm at 78 beats per minute with multiple premature ventricular complexes. When compared to her older EKG from November 2018, it is essentially unchanged except the PVCs that were present today were absent on the previous EKG. The overall waveform is very similar. The T-wave inversions present in inferior leads II, III, and aVF were still there on the previous EKG as well. Overall essentially unchanged. IMPRESSION: This is an 83-year-old female with multiple medical problems including mitral valve disease and previous diagnosis of diastolic heart failure , here due to chest pain, which has since resolved but noted to have a very minute elevation in troponin at 0.04. 1. Chest pain with very minute elevation in troponin. We will get another troponin level with the morning labs and consider Cardiology consultation to see if any further testing would be recommended in this patient and we will continue to monitor the patient on telemetry. We will also risk stratify the patient with the fasting lipid profile with the morning labs and even see level to rule out any diabetes or dyslipidemia. 2. History of hypertension with uncontrolled blood pressures during the ER stay. I will restart her home medications and see the trend of her blood pressure. 3. History of atrial fibrillation, on anticoagulation and digoxin. We will continue those medications. 4. DVT prophylaxis. The patient is already on Eliquis. 5. Code status. The patient did fill up a MOLST form indicating DNR and DNI, but okay with a trial of BiPAP. [id number]/[facility] #: [id number] THIERRY
[2019-05-26] MEDS: Aspirin EC TAB* 81 MG TAB.EC PO SCH (10:03)
[2019-05-26] MEDS: Spironolactone TAB* 25 MG PO SCH (10:03)
[2019-05-26] MEDS: Digoxin TAB* 0.25 MG PO SCH (10:04)
[2019-05-26] MEDS: Apixaban* 2.5 MG TAB PO SCH ×2 (10:04→19:55)
[2019-05-26] MEDS: Magnesium Chloride EC TAB* 64 MG PO SCH ×2 (10:05→19:55)
[2019-05-26] MEDS: Metoprolol Succinate XL TAB* 25 MG PO SCH (10:06)
[2019-05-26] MEDS: Hydrochlorothiazide TAB* 25 MG PO SCH (10:07)
[2019-05-26] MEDS: CMCS:Cyclosporine 0.05% OPHTH (NF) 0.4 ML VIAL BOTH EYES SCH ×2 (10:08→19:55)
--- NOTE | 2019-05-26 11:25 | PN ---
Subjective Date of Service: 05/26/19 Interval History: Ms. Craft reports that she is feeling well today. She denies chest pain, SOB , nausea, or abdominal pain. Objective Active Medications: Apixaban (Eliquis*) 2.5 mg PO BID SUNITA Aspirin (Aspirin Ec Tab*) 81 mg PO QAM SUNITA Cyclosporine (Restasis 0.05% Ophth) 1 drop BOTH EYES BID SUNITA Digoxin (Lanoxin Tab*) 0.25 mg PO DAILY SUNITA Hydrochlorothiazide (Hydrodiuril Tab*) 12.5 mg PO EVERY OTHER DAY SUNITA Magnesium Chloride (Slow Mag Ec Tab*) 64 mg PO BID SUNITA Metoprolol Succinate (Toprol Xl Tab*) 25 mg PO DAILY SUNITA Spironolactone (Aldactone Tab*) 12.5 mg PO EVERY OTHER DAY SUNITA Vital Signs: Temp Pulse Resp BP Pulse Ox 97.4 F 75 16 155/64 98 05/26/19 07:29 05/26/19 10:04 05/26/19 07:29 05/26/19 07:29 05/26/19 07:29 Oxygen Devices in Use Now: None Appearance: Female lying in bed in NAD Eyes: No Scleral Icterus Ears/Nose/Mouth/Throat: Mucous Membranes Moist Neck: Trachea Midline Respiratory: Symmetrical Chest Expansion and Respiratory Effort, Clear to Auscultation Cardiovascular: NL Sounds; No Murmurs; No JVD, No Edema Abdominal: NL Sounds; No Tenderness; No Distention Extremities: No Edema Skin: No Rash or Ulcers Neurological: Alert and Oriented x 3, NL Muscle Strength and Tone Nutrition: Taking PO's Result Diagrams: 05/26/19 05:46 05/26/19 05:46 Additional Lab and Data: . Assess/Plan/Problems-Billing Assessment: Ms. Craft is an 83 yo F with a PMH of diastolic CHF, afib on anticoagulation, hx breast cancer, giant cell arteritis, and PMR who was admitted on 05/26/19 with chest pain with minimal troponin elevation. - Patient Problems (1) Chest pain Comment: - Trop peaked at 0.05. - EKG with afib, no evidence of ischemia - Cardiology consulted. Hx of low risk stress test in 2018. - Plan for echo tomorrow and chem nuc med stress test on Tuesday (2) Chronic diastolic (congestive) heart failure Comment: - No signs of exacerbation (3) Afib Comment: - Chronic - Continue eliquis, digoxin (4) Hypertension Comment: - SBP 150-160s - Continue metoprolol, spironolactone, hctz (5) History of mitral valve repair Comment: - Noted (6) DVT prophylaxis Comment: - Eliquis (7) DNR (do not resuscitate) Comment: Status and Disposition: Convert to inpatient with need for echo and stress test
[2019-05-26 12:44] LABS: Troponin I 0.04 ng/mL (<0.03)
--- NOTE | 2019-05-26 17:12 | CONS ---
CC: Dr. Marquez; Dr. Mi Grajeda CARDIOLOGY CONSULTATION: DATE OF CONSULT: 05/26/19 INDICATION FOR CONSULTATION: Abnormal troponin. HISTORY OF PRESENT ILLNESS: The patient is an 83-year-old female with a history of atrial fibrillati on, mitral valve disorder, history of mitral valve repair more than 10 years ago, breast cancer who h as been feeling unwell for a couple of days. The patient was scheduled to see Jacqueline Monsivais NP, in our office yesterday. The patient came to that meeting. She was describing episodes of chest pain over the last 3 or 4 days. She describes it just as a heaviness in the chest. She had a little bit of sh ortness of breath. She denied any radiation or discomfort. She denied any diaphoresis. She denied any orthopnea. She denied any palpitations. No lightheadedness, dizziness, or syncope. The patient w as evaluated in our office and things appeared to be somewhat unremarkable; however, she was sent to the lab for troponin level. Her troponin level came back at 0.03 and she was referred to the emergen cy room. Overnight, her troponin levels increased to a maximum of 0.05. PAST MEDICAL HISTORY: Significant for atrial fibrillation, mitral valve disorder, status post mitral valve repair. OUTPATIENT MEDICATIONS: 1. Restasis eye drops twice a day. 2. Magnesium tablet. 3. Digoxin 1 tablet a day. 4. Spironolactone 12.5 mg a day. 5. Metoprolol 25 mg a day. 6. Hydrochlorothiazide 12.5 mg a day. 7. Eliquis 2.5 mg b.i.d. 8. Aspirin 81 mg a day. ALLERGIES: No known drug allergies. FAMILY HISTORY: Father of myocardial infarction in his 80s. SOCIAL HISTORY: She denies tobacco or alcohol use. She lives with her . REVIEW OF SYSTEMS: Negative for fevers and chills. Negative for changes in bowel or bladder habits. Negative for changes in weight. Other 12-point review is unremarkable except for what is mentioned above. PHYSICAL EXAM: On physical exam, height is 5 feet, weight is 129 pounds, temperature is 97.9, blood pressure 151/67, heart rate is 71, respiratory rate is 16, oxygen saturation 97% on room air. Sclera e anicteric. Oropharynx is pink without erythema. Carotids are 2+ without bruits. JVD is normal. Thyroid is normal. Cardiac Exam: S1, S2 without any murmurs, rubs, or gallops. PMI is normal. Kaia gs are clear auscultation. Extremities show no edema. She has 2+ pulses throughout. The patient is awake, alert, and oriented. She moves all 4 extremities equally. DIAGNOSTIC STUDIES/LAB DATA: CBC within normal limits. Chemistries within normal limits. BUN and c reatinine are normal. Total cholesterol 170, LDL cholesterol 97. BMP 187. Peak troponin level 0.05. EKG on arrival showed ectopic atrial rhythm with PVCs, unchanged from an EKG earlier that day in our office. IMPRESSION: This is an 83-year-old female with a history of mitral valve repair, history of paroxysm al atrial fibrillation, who came to the office yesterday for a routine office visit. She was describ ing episodes of chest pain. Ultimately, she underwent laboratory test that had an elevated troponin level and was admitted to the hospital. The patient continues to have some mild chest pain. Troponi n levels are minimally elevated. EKG does not show ischemic EKG changes. For now, my recommendation is that the patient undergo further cardiac evaluation. The patient will b e held over the weekend. She will undergo an echocardiogram and a chemical nuclear stress test. At this point, I do not think any medication changes are necessary. We will monitor her blood pressu re while she is in the hospital and make further recommendations pending results of her stress test. [id number]/[facility] #: [id number]
--- NOTE | 2019-05-27 07:23 | PN ---
Subjective Date of Service: 05/27/19 Interval History: Ms. Craft reports that she is feeling quite well. She denies further chest pain. She also denies shortness of breath, nausea, or abdominal pain. Objective Active Medications: Apixaban (Eliquis*) 2.5 mg PO BID SUNITA Aspirin (Aspirin Ec Tab*) 81 mg PO QAM SUNITA Cyclosporine (Restasis 0.05% Ophth) 1 drop BOTH EYES BID SUNITA Digoxin (Lanoxin Tab*) 0.25 mg PO DAILY SUNITA Hydrochlorothiazide (Hydrodiuril Tab*) 12.5 mg PO EVERY OTHER DAY SUNITA Magnesium Chloride (Slow Mag Ec Tab*) 64 mg PO BID SUNITA Metoprolol Succinate (Toprol Xl Tab*) 25 mg PO DAILY SUNITA Spironolactone (Aldactone Tab*) 12.5 mg PO EVERY OTHER DAY SUNITA Vital Signs: Temp Pulse Resp BP Pulse Ox 97.6 F 70 16 137/65 96 05/27/19 03:15 05/27/19 03:15 05/27/19 03:15 05/27/19 03:15 05/27/19 03:15 Oxygen Devices in Use Now: None Appearance: Female lying in bed in NAD Eyes: No Scleral Icterus Ears/Nose/Mouth/Throat: Mucous Membranes Moist Neck: Trachea Midline Respiratory: Symmetrical Chest Expansion and Respiratory Effort, Clear to Auscultation Cardiovascular: NL Sounds; No Murmurs; No JVD, No Edema Abdominal: NL Sounds; No Tenderness; No Distention Extremities: No Edema Skin: No Rash or Ulcers Neurological: Alert and Oriented x 3, NL Muscle Strength and Tone Nutrition: Taking PO's Result Diagrams: 05/26/19 05:46 05/26/19 05:46 Additional Lab and Data: . Assess/Plan/Problems-Billing Assessment: Ms. Craft is an 83 yo F with a PMH of diastolic CHF, afib on anticoagulation, hx breast cancer, giant cell arteritis, and PMR who was admitted on 05/26/19 with chest pain with minimal troponin elevation. - Patient Problems (1) Chest pain Comment: - Trop peaked at 0.05. - EKG with afib, no evidence of ischemia - Cardiology consulted. Hx of low risk stress test in 2018. - Plan for echo and chem nuc med stress test on Tuesday (2) Chronic diastolic (congestive) heart failure Comment: - No signs of exacerbation (3) Afib Comment: - Chronic - Continue eliquis, digoxin (4) Hypertension Comment: - SBP 150-160s - Continue metoprolol, spironolactone, hctz (5) History of mitral valve repair Comment: - Noted (6) DVT prophylaxis Comment: - Eliquis (7) DNR (do not resuscitate) Comment: Status and Disposition: Convert to inpatient with need for echo and stress test. Anticipate discharge to home when medically stable.
[2019-05-27] MEDS: Apixaban* 2.5 MG TAB PO SCH ×2 (10:10→20:03)
[2019-05-27] MEDS: Metoprolol Succinate XL TAB* 25 MG PO SCH (10:10)
[2019-05-27] MEDS: Aspirin EC TAB* 81 MG TAB.EC PO SCH (10:10)
[2019-05-27] MEDS: Digoxin TAB* 0.25 MG PO SCH (10:11)
[2019-05-27] MEDS: Magnesium Chloride EC TAB* 64 MG PO SCH ×2 (10:12→20:03)
[2019-05-27] MEDS: CMCS:Cyclosporine 0.05% OPHTH (NF) 0.4 ML VIAL BOTH EYES SCH ×2 (10:14→20:03)
[2019-05-28] MEDS: CMCS:Cyclosporine 0.05% OPHTH (NF) 0.4 ML VIAL BOTH EYES SCH (08:52)
[2019-05-28] MEDS ORDERED: Regadenoson* 0.4 MG/5 ML SYRINGE ONE (12:44)
[2019-05-28] MEDS: Digoxin TAB* 0.25 MG PO SCH (14:38)
[2019-05-28] MEDS: Spironolactone TAB* 25 MG PO SCH (14:38)
[2019-05-28] MEDS: Metoprolol Succinate XL TAB* 25 MG PO SCH (14:38)
[2019-05-28] MEDS: Hydrochlorothiazide TAB* 25 MG PO SCH (14:40)
[2019-05-28] MEDS: Magnesium Chloride EC TAB* 64 MG PO SCH (14:40)
[2019-05-28] MEDS: Aspirin EC TAB* 81 MG TAB.EC PO SCH (14:40)
[2019-05-28] MEDS: Apixaban* 2.5 MG TAB PO SCH (14:43)
--- NOTE | 2019-05-28 15:16 | ECHO ---
*[facility]* [place] [address] Fax #: [phone] Transthoracic Echocardiogram Patient: Edie Craft : 1935 Study Date: 05/28/2019 Age: 83 Gender: F HR: 64 bpm Height: 60 in /152.4 cm BSA: 1.55 m^2 Weight: 128.7 lb /58.5 kg BMI: 25.2 kg/m^2 *Service Girl: * Faiza Multani RDCS RN *Referring Physician: * Dominique June *Reading Physician: * Jeff Carpenter MD Indications: Chest Pain, unspecified. Malignant neoplasm of heart (C38.0). Benign neoplasm of heart (D15.1). Acute rheumatic pericarditis (I01.0). History: Atrial fibrillation. Pulmonary hypertension. Risk factors: Hypertension. Labs, prior tests, procedures, and surgery: Mitral valve repair. Conclusions Summary: - Left ventricle: Systolic function is normal. The estimated ejection fraction is 55-60%. Wall motion is normal; there are no regional wall motion abnormalities. - Right ventricle: Systolic function is normal. Systolic pressure is mildly increased. - Mitral valve: Prior procedures include surgical repair. The findings are consistent with mild stenosis. There is trace to mild regurgitation. The mean diastolic gradient is 5.0 mm Hg. The peak diastolic gradient is 9.0 mm Hg. The valve area by pressure half-time is 2.0 cm^2. - Aortic valve: There is no evidence of stenosis. There is mild regurgitation. - Tricuspid valve: There is moderate regurgitation directed toward the septum. - Compared to transesophageal echocardiogram form 12/08/09, there is no change. Study data: Transthoracic echocardiogram. Procedure: Transthoracic echocardiography was performed. Image quality was fair. Complete 2D, spectral Doppler, and color flow Doppler. Location: Bedside. Patient status: Inpatient. Patient room number: 438. Rhythm: Normal sinus rhythm with PVC's. Findings Left ventricle: The cavity size is below normal. Wall thickness is mildly to moderately increased. Systolic function is normal. The estimated ejection fraction is 55-60%. Wall motion is normal; there are no regional wall motion abnormalities. Doppler parameters are consistent with abnormal left ventricular relaxation (grade 1 diastolic dysfunction). Right ventricle: The cavity size is at the upper limits of normal. Systolic function is normal. Systolic pressure is mildly increased. Left atrium: The atrium is severely dilated. Right atrium: The atrium is normal in size. Mitral valve: Prior procedures include surgical repair. The leaflets are moderately thickened. The findings are consistent with mild stenosis. There is trace to mild regurgitation. Aortic valve: The valve is trileaflet. The leaflets are mildly thickened. There is no evidence of stenosis. There is mild regurgitation. Tricuspid valve: The leaflets are normal thickness. There is no evidence of stenosis. There is moderate regurgitation directed toward the septum. Pulmonic valve: The leaflets are normal thickness. There is no evidence of stenosis. There is trace regurgitation. Aorta: Aortic root: The aortic root is not dilated. Ascending aorta: The ascending aorta is not dilated. Aortic arch: The aortic arch is not dilated. Pericardium: There is no pericardial effusion. Pulmonary arteries: The main pulmonary artery is normal-sized. Systolic pressure is mildly increased, estimated to be 37 mm Hg. Systemic veins: Inferior vena cava: The vessel is normal in size. There is (>= 50%) respiratory change in the IVC dimension. Measurements Left ventricle Value Ref Aortic valve continued Value Ref TOD, LAX (L) 3.1 cm 3.8 - 5.2 VTI, S 21.0 cm ----- ESD, LAX (L) 2.0 cm 2.2 - 3.5 Mean grad, S 3.0 mm Hg ----- FS, LAX 36 % 27 - 45 Peak grad, S 5.0 mm Hg ----- PW, ED (H) 1.2 cm 0.6 - 0.9 LVOT/AV, VTI ratio 0.77 ----- IVS/PW, ED 1.26 E', lat sanya, TDI (L) 7.7 cm/sec >=10.0 Mitral valve Value R ef E/e', lat sanya, 21 Peak E 1.62 m/sec ---- - TDI Peak A 1.38 m/sec ----- E', med sanya, TDI (L) 4.7 cm/sec >=7.0 Decel time 243 ms - ---- E/e', med sanya, 34 PHT 111 ms ---- - TDI Mean grad, D 5.0 mm Hg ----- E', avg, TDI 6.2 cm/sec Peak grad, D 9.0 mm Hg ---- - E/e', avg, TDI (H) 26 <=14 Peak E/A ratio 1.2 - ---- MVA, PHT 2.0 cm^2 ----- LVOT Value Ref Peak parisa, S 0.83 m/sec Pulmonic valve Value Ref VTI, S 16.2 cm Peak v, S 0.66 m/sec ----- Mean grad, S 1 mm Hg Peak grad, S 2.0 mm Hg ----- Ventricular septum Value Ref Tricuspid valve Value Ref IVS, ED (H) 1.5 cm 0.6 - 0.9 TR peak v (H) 2.9 m/sec <=2.8 Peak RV-RA grad, S 34 mm Hg ----- Right ventricle Value Ref TOD, LAX 2.8 cm Aortic root Value Ref TOD minor ax, A4C (H) 3.6 cm 1.9 - 3.5 Root diam 3.2 cm <3.8 mid Pressure, S 37 mm Hg Ascending aorta Value Ref AAo AP diam, S 3.3 cm ----- Left atrium Value Ref AP dim, ES (H) 3.90 cm 2.70 - Aortic arch Value Ref 3.80 Arch diam 2.1 cm ----- ML dim, A4C 4.5 cm SI dim, A4C 5.9 cm Decending aorta Value Ref Vol/bsa, ES, 1-p (H) 42 ml/m^2 11 - 40 Leno peak parisa 0.53 m/sec ----- A4C Vol/bsa, ES, A/L (H) 57 ml/m^2 16 - 34 Pulmonary artery Value Ref Pressure, S 35.0 mm Hg ----- Right atrium Value Ref ML dim, ES, A4C 4.2 cm 2.6 - 4.4 Inferior vena cava Value Ref SI dim, ES, A4C 5.2 cm 3.4 - 5.3 Diam 0.9 cm ----- Estimated RAP 3 mm Hg Aortic valve Value Ref Sanya diam, ED 1.8 cm Peak v, S 1.1 m/sec Legend: (L) and (H) freddy values outside specified reference range. Prepared and electronically signed by Jeff Carpenter MD 05/28/2019 15:15
[2019-05-28 15:54] VITALS: BP 138/71
--- NOTE | 2019-05-28 19:58 | DS ---
CC: Dr. Mi Grajeda * DISCHARGE SUMMARY: DATE OF ADMISSION: 05/26/19 DATE OF DISCHARGE: 05/28/19 PRIMARY CARE PROVIDER: Dr. Mi Grajeda. HAY FARMER: Dr. Mi Marquez. PRINCIPAL DIAGNOSIS: Noncardiac chest pain. SECONDARY DIAGNOSIS: 1. Chronic diastolic congestive heart failure. 2. Atrial fibrillation. 3. Mitral valve disorder, status post repair. 4. Aortic valve disorder, status post repair. 5. History of breast cancer. 6. History of giant cell arteritis. DISCHARGE MEDICATIONS: 1. Restasis 1 drop to both eyes twice daily. 2. Slow-Mag 1 tab p.o. b.i.d. 3. Digoxin 0.25 mg p.o. daily. 4. Spironolactone 12.5 mg p.o. every other day. 5. Metoprolol XL 25 mg p.o. daily. 6. Hydrochlorothiazide 12.5 mg p.o. every other day. 7. Aspirin 81 mg p.o. daily. 8. Eliquis 2.5 mg p.o. b.i.d. HOSPITAL COURSE: Ms. Craft is an 83-year-old female who has a history of chronic diastolic congestive heart failure, atrial fibrillation, and mitral and aortic valve disorder, status post repair, who presented to the emergency room with complaints of chest pain. The patient had chest pain for approximately 3 to 4 days prior to her admission. It was noted to be substernal and nonradiating. She saw her PCP at a routine visit and at that time had a troponin drawn that was mildly elevated at 0.03. At that time, the patient was sent to the emergency room for evaluation. In the ER, the patient's chest pain resolved. She has had no further episodes of chest pain since being hospitalized. The patient was seen in consultation by Dr. Carpenter, who recommended echocardiogram and chemical nuclear stress test. She had both of these performed on 05/28/19. Her echocardiogram was reported to be unchanged from prior. Her EF is estimated to be 55% to 60% with normal wall motion. Right ventricular systolic function is normal. There is trace to mild mitral regurgitation. There is mild aortic regurgitation. There is moderate tricuspid regurgitation. This is unchanged from echo on 12/08/09. Her chemical nuclear stress test was nondiagnostic on a EKG portion. Her nuclear imaging revealed no definite fixed or reversible perfusion defects. At this point, the patient is felt to be stable for discharge home. I have explained to the patient that it is unclear what caused her chest pain. She has been instructed to monitor for any recurrent episodes of pain. On the day of discharge, the patient is awake, alert and oriented, sitting up in bed, in no acute distress. Cardiac exam reveals a normal S1, S2, regular rate and rhythm. There is no lower extremity edema. Pulmonary: Lungs are clear to auscultation bilaterally. Abdomen: Bowel sounds are present. Abdomen is soft, nontender, nondistended. Musculoskeletal: The patient moves all 4 extremities symmetrically. FOLLOWUP CONCERNS: The patient is being discharged to home today, 05/28/19. ACTIVITY: Activity level is as tolerated. DIET: Heart healthy. CONDITION ON DISCHARGE: Stable. FOLLOWUP: The patient has been instructed to follow up with Dr. Grajeda in approximately 4 to 7 days. Additionally, Dr. Marquez's office will contact the patient for followup appointment. TIME SPENT: Twenty-five minutes was spent discharging this patient. [id number]/[facility] #: [id number] [facility] [place]
== END 2019-05-28 16:54 | disposition home or self-care (01) | DRG 313 ==
LOC: ED 16:44 → MEDTELE 05-26 02:15 → INTOOBSV 05-26 02:15 → OBSVTOIN 05-26 15:34
PROVIDERS: ADMIT Internal Medicine; ATTEND Hospitalist
DX: R07.89 Other chest pain (principal); I50.32 Chronic diastolic (congestive) heart failure; I48.91 Unspecified atrial fibrillation; I08.3 Combined rheumatic disorders of mitral, aortic and tricuspid valves; M31.5 Giant cell arteritis with polymyalgia rheumatica; Z66 Do not resuscitate; R74.8 Abnormal levels of other serum enzymes; Z85.3 Personal history of malignant neoplasm of breast; Z79.01 Long term (current) use of anticoagulants; Z79.82 Long term (current) use of aspirin; Z79.899 Other long term (current) drug therapy; Z82.49 Family history of ischemic heart disease and other diseases of the circulatory system
CPT/HCPCS: 36415; 71046; 78452; 80048; 80053; 80061; 83036; 83880; 84484; 85025; 85610; 93005; 93017; 93306; 99282; A9270-GY; A9502; J2785

== ENCOUNTER 2019-08-02 10:00 | Emergency (ER) | payer MEDICARE, OTHER, BC ==
--- OUTSIDE RECORDS SUMMARY | 2019-08-02 10:07 | XMS REPORT | Continuity of Care Document ---
:1935 External Reference #:[id number] Author Name Jacqueline Monsivais N.P. (transmitted by agent of provider Barbara Wagner) Address [address] [place] [address] Care Team Providers Name Role Phone Mi Grajeda MD - Family Care Team Information Software Applications Specialist [phone] Medicine Sudheer Wallace MD - Thoracic Care Team Information Software Applications Specialist Surgery (Cardiothoracic Vascular Surgery) Problems Active Problems [...] Onset: 03/07/2018 Disorder of magnesium metabolism Shanti Burroughs GALLO Esquivel Onset: 03/07/2018 Premature beats Shanti EsquivelGALLO Onset: 03/08/2018 Rheumatic disease of tricuspid valve Dominique June N.P. Onset: 03/11/2018 Urinary tract infectious disease Dominique June N.P. Onset: 03/11/2018 Pulmonary arterial hypertension Dominique June N.P. Onset: 03/11/2018 Paroxysmal atrial fibrillation Mi Marquez M.D. Onset: 02/01/2019 Social History Type Date Description Comments Sex Unknown Tobacco Use Start: Unknown Never Smoked Cigarettes Smoking Status Reviewed: 07/10/19 Never Smoked Cigarettes ETOH Use Denies alcohol [...] S. 04/10/2019 71.5-119mg Tablets DR at night Loi N.PCarlos Digox 1 tab by mouth 90tabs I49.3 Jacqueline S. 02/01/2019 250mcg Tablets every day Loi N.Hair Eliquis 1 tablet by 180tabs I48.1 Mi Marquez, 12/07/2018 2.5mg Tablets mouth twice a M.D. day Metoprolol Succinate ER 1/2 tab by 45tabs I48.1 Mi Marquez, 12/07/2018 25mg mouth at M.D. Tablets ER 24HR bedtime Spironolactone 1/2 tablet by 54tabs I50.32 Mi Marquez, 09/11/2015 25mg Tablets mouth mondays, M.D. wednesdays, and fridays Hydrochlorothiazide Take 1 Capsule 93caps Jacqueline S. 02/12/2014 12.5mg By Mouth Every Loi N.P. Capsules Tuesday And Restasis 1 gtt both eyes Unknown 0.05% Emulsion twice daily Am/PM History Medications Magnesium-Oxide 1 by mouth 30tabs Mi Marquez, 03/09/2019 - 400(241.3mg) mg every day M.D. 04/10/2019 Tablets Immunizations CPT Code Status Date Vaccine Lot # [id number] Given 05/10/2012 Zoster (Zostavax) [id number] Given 04/12/2012 Fluzone Vaccine [id number] Given 03/19/2011 Afluria Vaccine [id number] Vital Signs Date Vital Result Comment 07/10/2019 10:36am Height 60 inches 5'0" Weight 128.00 lb without shoes Heart Rate 68 /min BP Systolic Sitting 148 mmHg Lue reg cuff BP Diastolic Sitting 74 mmHg Lue reg cuff BP Systolic Standing 150 mmHg Lue reg cuff BP Diastolic Standing 80 mmHg Lue reg cuff Respiratory Rate 16 /min BMI (Body Mass Index) 25.0 kg/m2 05/25/2019 11:28am Height 60 inches 5'0" Weight [...] Mass Index) 25.0 kg/m2 Ejection Fraction 55-60% Results Test Acquired Date Facility Test Result H/L Range Note Order 07/02/2019 [facility] Holter Monitor <pending> [address] [place] [address] [phone] Laboratory test 05/25/2019 [facility] Erythrocyte Sed 17 mm/Hr Normal 0-[address] [place] [address] [phone] C Reactive Protein 16.81 mg/L High <8.01 Troponin-I (TnI) 0.03 ng/mL Critical high <0.03 1 D Dimer Quantitative < 200 ng/mL Normal Less Than 230 2 Magnesium 1.8 mg/dL Low 1.9-2.7 Laboratory test 04/06/2019 [facility] Digoxin 1.3 ng/ml Normal 0.8-2.[address] [place] [address] [phone] Laboratory test 03/09/2019 [facility] Digoxin 2.6 ng/ml Critical 0.8-2.[address] [place] [address] [phone] Basic Metabolic 03/09/2019 [facility] Sodium 132 mmol/L Low 135-145 Panel [address] [place] [address] [phone] Potassium 4.5 mmol/L Normal 3.5-5.0 Chloride 95 mmol/L Low 101-111 Co2 Carbon Dioxide 32 mmol/L Normal 22-32 Anion Gap 5 mmol/L Normal 2-11 Glucose 99 mg/dL Normal 70-100 Blood Urea Nitrogen 12 mg/dL Normal 6-24 Creatinine 0.94 mg/dL Normal 0.51-0.95 BUN/Creatinine Ratio 12.8 Normal 8-20 Calcium 9.0 mg/dL Normal 8.6-10.3 Egfr Non- 57.2 >60 Egfr 69.2 >60 4 Laboratory test 03/09/2019 [facility] Magnesium 1.6 mg/dL Low 1.9-2.7 finding [address] [place] [address] [phone] Laboratory test 02/20/2019 [facility] Digoxin 1.7 ng/ml Normal 0.8-2.0 finding [address] [place] [address] [phone] 1 Result TnIDx:0.03 Called to NGUYỄN Huff at: 15:18:08 by:[id number] Read back by:NGUYỄN Huff Troponin-I testing on Plasma Separator Tubes (PST) has a known false positive rate of 0.20-0.40%. All positive troponins reflex immediately to secondary confirmatory testing. Using the [employer] DxI 800 Access Immunoassay systems, the 99th percentile upper reference limit was demonstrated to be < 0.03 ng/mL. 2 Please note: The following may produce a false positive D Dimer test: - Rheumatoid factor greater than 60 IU/ml - Plasma hemoglobin greater than 0.05 gm/dl - Bilirubin greater than 50 mg/dl - Lipids greater than 1000 mg/dl - FDP greater than 20 ug/ml 3 Critical Result DIGN:2.6 Called to HUBERT Marcelo RN/CAROLYNN at: 13:42:22 by:[id number] Read back by:HUBERT Marcelo RN/CAROLYNN 4 Because ethnic data is not always [...] Kidney failure <15 (or dialysis) Procedures Date Code Description Status 07/04/2019 55628 Holter Monitor Review (24 hr)dr [email or web address] & interp only Completed 07/02/2019 53957 ECG Monitor/Recording W/Visual Superimposition Completed Scanning 06/28/2019 28527 Destruction ALL Benign Or Premalignant Lesion (Other Completed Than [place] 05/28/2019 30923 ECHO Transthorasic Realtime 2D W Doppler & Color Flow Completed Hosp 05/28/2019 66251 Treadmill Interp/Report Only Completed 05/28/2019 94693 Stress Test Supervsn W/Out I/R Completed 05/25/2019 12207 EKG Tracing & Interpretation Completed 04/10/2019 52657 EKG Tracing & Interpretation Completed 03/09/2019 42120 EKG Tracing & Interpretation Completed 01/09/2019 63280 Holter Monitor Review (24 hr)dr zamarripa & interp only Completed 03/27/2015 [id number] Bone Mineral Density Test Completed Medical Devices Description No Information Available Encounters Type Date Location Provider Dx Diagnosis Office Visit 06/28/2019 [facility] Meng Wolf MD L57.0 Actinic keratosis 9:10a L82.1 Other seborrheic keratosis I73.89 Other specified peripheral vascular diseases Office Visit 05/28/2019 12:52p [facility] Jeff Ivan R07.9 Chest pain, Of Devaughn Carpenter M.D. unspecified R79.89 Other specified abnormal findings of blood chemistry Office Visit 05/28/2019 9:16a [facility] Teresita R07.9 Chest pain, Assoc,pc Isi Hsieh unspecified Hospitalists I50.32 Chronic diastolic (congestive) heart failure Office Visit 05/27/2019 9:15a [facility] Dominique June, R07.9 Chest pain , Assoc,pc N.PCarlos unspecified Hospitalists I48.20 Chronic atrial fibrillation, unspecified I10 Essential (primary) hypertension Office Visit 05/26/2019 2:30p [facility] Jeff Ivan R07.9 Chest pain, Of Devaughn Carpenter M.D. unspecified R79.89 Other specified abnormal findings of blood chemistry Office Visit 05/26/2019 [facility] Roxnaa Harmon, R07.9 Chest pain, 9:15a Asskimberly oliver M.D. unspecified Hospitalists R79.89 Other specified abnormal findings of blood chemistry I48.20 Chronic atrial fibrillation, unspecified I50.32 Chronic diastolic (congestive) heart failure Office Visit 05/25/2019 [facility] Jacqueline Jolly R94.31 Abnormal 11:30a Cardiology Marietta Monsivais, N.P. electrocardiogram [facility] [ECG] [EKG] I48.0 Paroxysmal atrial fibrillation I34.1 Nonrheumatic mitral (valve) prolapse I49.3 Ventricular premature depolarization R07.9 Chest pain, unspecified Office Visit 04/10/2019 10:00a [facility] Jacqueline Jolly I48.0 Paroxysmal atrial Of Devaughn Monsivais N.P. fibrillation I34.1 Nonrheumatic mitral (valve) prolapse I49.3 Ventricular premature depolarization R94.31 Abnormal electrocardiogram [ECG] [EKG] I27.20 Pulmonary hypertension, unspecified Office Visit 02/01/2019 1:30p [facility] Mi Marquez, I48.0 Paroxysmal atrial Of Devaughn Duncan fibrillation I34.1 Nonrheumatic mitral (valve) prolapse I49.3 Ventricular premature depolarization Assessments Date Code Description Provider 07/10/2019 I49.3 Ventricular premature depolarization Jacqueline Monsivais, N.P. 07/10/2019 R07.9 Chest pain, unspecified Jacqueline Monsivais, N.P. 07/10/2019 I50.32 Chronic diastolic (congestive) heart Jacqueline Monsivais, N.P. failure 07/10/2019 I10 Essential (primary) hypertension Jacqueline Monsivais, N.P. 07/10/2019 I44.0 Atrioventricular block, first degree Jacqueline Monsivais, N.P. 07/10/2019 I48.0 Paroxysmal atrial fibrillation Jacqueline Monsivais, N.P. 07/10/2019 I34.1 Nonrheumatic mitral (valve) prolapse Jacqueline Monsivais, N.P. 07/04/2019 I49.3 Ventricular premature depolarization Mi Marquez M.D. 07/02/2019 I49.3 Ventricular premature depolarization Nurse Visit IC 06/28/2019 L57.0 Actinic keratosis Meng Wolf MD 06/28/2019 L82.1 Other seborrheic keratosis Meng Wolf MD 06/28/2019 I73.89 Other specified peripheral vascular Meng Wolf MD diseases 05/28/2019 R07.9 Chest pain, unspecified Jeff Carpenter M.D. 05/28/2019 R79.89 Other specified abnormal findings of Jeff Carpenter M.D. blood chemistry 05/28/2019 R07.9 Chest pain, unspecified Jackie Govea MD, FACC, FSCAI 05/28/2019 R07.9 Chest pain, unspecified Tereista Hsieh, D.O. 05/28/2019 I50.32 Chronic diastolic (congestive) heart Teresita Hsieh, D.O. failure 05/27/2019 R07.9 Chest pain, unspecified Dominique June N.P. 05/27/2019 I48.20 Chronic atrial fibrillation, Dominique June N.P. unspecified 05/27/2019 I10 Essential (primary) hypertension Refugio Reed.P. 05/26/2019 R07.9 Chest pain, unspecified Jeff Carpenter M.D. 05/26/2019 R79.89 Other specified abnormal findings of Jeff Carpenter M.D. blood chemistry 05/26/2019 R07.9 Chest pain, unspecified Roxana Harmon M.D. 05/26/2019 R79.89 Other specified abnormal findings of Roxana Harmon M.D. blood chemistry 05/26/2019 I48.20 Chronic atrial fibrillation, Roxana Harmon M.D. unspecified 05/26/2019 I50.32 Chronic diastolic (congestive) heart Roxana Harmon M.D. failure 05/25/2019 I44.0 Atrioventricular block, first degree Carlos Davidson M.D. 05/25/2019 I49.3 Ventricular premature depolarization Carlos Davidson M.D. 05/25/2019 R94.31 Abnormal electrocardiogram [ECG] [EKG] Jacqueline [...] I49.3 Ventricular premature depolarization Mi Marquez M.D. Plan of Treatment Future Appointment(s):12/11/2019 9:00 am - Mi Marquez M.D. at [facility]07/10/2019 - Jacqueline Monsivais N.P.I49.3 Ventricular premature depolarizationFollow up: LSRecommendations:PVCs improved to 6kR07.9 Chest pain, eugozgvhyckV87.32 Chronic diastolic (congestive) heart failureRecommendations:Take BP 1-2x daily and drop off BPs in 2-3 weeks.I10 Essential (primary) mkmqzsovrfbiP70.0 Atrioventricular block, first yucflaY41.0 Paroxysmal atrial jesnrfzlaptbT85.1 Nonrheumatic mitral (valve) prolapse Functional Status Description No Information Available Mental Status Description No Information Available Referrals Description No Information Available
[2019-08-02 10:08] VITALS: BP 152/86
--- NOTE | 2019-08-02 10:26 | UC ---
Complaint Female HPI - HPI Summary HPI Summary: CHIEF COMPLAINT: itching in the perivaginal area HPI: This is a relatively healthy 84-year-old female with the complaint of itching in the perivaginal area for the past 2 weeks. She denies fever. She denies vaginal discharge. She denies dysuria. Description of Pain: No pain VITAL SIGNS REVIEWED. Within normal limits unless noted here. 152/86. NURSES NOTE REVIEWED. " uti sx x 2 weeks unable to get to medical help " - History Of Current Complaint Chief Complaint: UCGU Stated Complaint: URINARY COMPLAINT Time Seen by Provider: 08/02/19 10:24 Hx Obtained From: Patient Hx Last Menstrual Period: menopause Pain Intensity: 0 - Allergies/Home Medications Allergies/Adverse Reactions: Allergies Allergy/AdvReac Type Severity Reaction Status Date / Time No Known Allergies Allergy Verified 08/02/19 10:08 PMH/Surg Hx/FS Hx/Imm Hx Previously Healthy: Yes Cardiovascular History: Hypertension, Atrial Fibrillation - Surgical History Surgical History: Yes Surgery Procedure, Year, and Place: AORTA SURGERY 2005,lumpectomy right 2011 - Family History Known Family History: Positive: Hypertension, Other - FHx of breast cancer Negative: Cardiac Disease, Diabetes - Social History Occupation: Retired Lives: With Family Alcohol Use: None Substance Use Type: None Smoking Status (MU): Never Smoked Tobacco Have You Smoked in the Last Year: No - Immunization History Most Recent Influenza Vaccination: FALL 2015 Most Recent Tetanus Shot: utd Most Recent Pneumonia Vaccination: unknown Review of Systems All Other Systems Reviewed And Are Negative: Yes Skin: Positive: Rash - theresa vaginal Respiratory: Positive: Negative Cardiovascular: Positive: Negative Gastrointestinal: Positive: Negative Genitourinary: Positive: Negative Is Patient Immunocompromised?: No Physical Exam - Summary Physical Exam Summary: Appearance: The patient is well-appearing, is in no pain or distress, and is well-nourished. Eyes: Conjunctiva are clear. Pupils are equal and reactive to light and accommodation. Extra ocular muscle movement is intact. ENT: The hearing is grossly normal, the pharynx is normal, and the TMs are normal. There is no muffled or hoarse voice. No stridor. Neck: The neck is supple and there is no lymphadenopathy. Respiratory: The chest is non-tender to palpation and without crepitus. The lungs are clear, there are normal breath sounds, and there is no respiratory distress. No wheezes, rales or rhonchi. Cardiovascular: Heart sounds reveal a regular rate and rhythm. There are no clicks, rubs or murmurs. There are no carotid bruits or thrills. Circulation is grossly intact. Abdomen: The abdomen is soft and nontender. There is no organomegaly. Bowel sounds are present and within normal limits. No point tenderness at McBurneys point. No CVA tenderness. Musculoskeletal: Strength is intact. The patient moves all extremities. Neurological: The patient is alert. Motor and sensory are examination grossly intact. Speech is normal. Psychological: The patient displays age appropriate behavior, and is conversant. GCS=15. Skin: Negative for cellulitis. In the perivaginal area there is an erythematous rash that extends over the labia. There is no evidence of infection. There is no exudate or vesicles. The rash appears most consistent with contact dermatitis but it also could be a yesenia infection. Triage Information Reviewed: Yes Vital Signs: Initial Vital Signs Temp 97.8 F 08/02/19 10:05 Pulse 56 08/02/19 10:05 Resp 16 08/02/19 10:05 BP 152/86 08/02/19 10:05 Pulse Ox 99 08/02/19 10:05 Vital Signs Reviewed: Yes Complaint Female Dx - Course Course Of Treatment: This is a relatively healthy 84-year-old female with the complaint of itching in the perivaginal area for the past 2 weeks. She denies fever. She denies vaginal discharge. She denies dysuria. There is esterase in her urine analysis but she is completely asymptomatic. I doubt a urinary tract infection requiring antibiotics. Examination shows erythematous rash, non-vascular perivaginally. No cellulities. Diagnosis is contact dermatitis, possible yesenia, as well. I will treat with lotrisone and have encouraged the patient not to use her new bath soap. She knows to follow up if her condition worsens or doesn't resolve. - Differential Dx/Diagnosis Provider Diagnosis: Contact dermatitis Discharge ED - Sign-Out/Discharge Documenting (check all that apply): Patient Departure All imaging exams completed and their final reports reviewed: Yes - Discharge Plan Condition: Stable Disposition: HOME Prescriptions: Clotrimazole/Betamethasone* [Lotrisone Cream*] 1 applic TOPICAL BID #30 tube MDD 2 Patient Education Materials: Contact Dermatitis (DC), Cold Compress or Soak (ED ) Referrals: Mi Grajeda MD [Primary Care Provider] - Additional Instructions: WE DISCUSSED: You don't have a urinary tract infection. However if it should start to hurt when you urinate or you develop pain with urination or you develop a temperature, you need to be rechecked. You do have a localized skin allergic reaction in the area of the vagina. PLEASE SEEK CARE AT THE EMERGENCY DEPARTMENT IF SYMPTOMS WORSEN OR IF NEW SYMPTOMS DEVELOP. FOLLOW UP WITH YOUR PRIMARY CARE PHYSICIAN IF CONDITION CONTINUES BEYOND 3 DAYS WITHOUT IMPROVEMENT. YOUR DIAGNOSIS IS: Contact dermatitis. YOUR PRESCRIPTION RECOMMENDATION IS:Lotrisone cream; use this twice a day for the next 5-7 days. Don't use any new soaps in her bathtub for the next week to give this area a chance to heal. Keep the area as dry as possible. Recheck your condition with your doctor if you're not completely well in 10 days. OTHER INSTRUCTIONS: Hypertension Discharge Instructions: Your blood pressure reading today was 152/86, indicating HYPERTENSION. Follow- up with your primary care provider within 4 weeks for blood pressure check and appropriate recommendations and treatment, as needed. - Billing Disposition and Condition Condition: STABLE Disposition: Home
== END 2019-08-02 11:44 | disposition home or self-care (01) ==
LOC: UCEAST 10:00
DX: L25.9 Unspecified contact dermatitis, unspecified cause (principal); I10 Essential (primary) hypertension
CPT/HCPCS: 81003; 87086; 99212; G0463

== ENCOUNTER 2022-07-16 17:42 | Inpatient (IN) ==
[2022-07-16 20:13] LABS: ABS Lymphocytes 0.7 10^3/ul (1.0-4.8); ABS Monocytes 0.8 10^3/ul (0-0.8); Eosinophil % 0.1 %; Hematocrit 40 % (35-47); Hemoglobin 13.3 g/dL (12.0-16.0); Lymphocyte % 7.6 %; Mean Corpuscular HGB Conc 33 g/dL (31-36); Mean Corpuscular Hemoglobin 30 pg (27-31); Mean Corpuscular Volume 91 fL (80-97); Mean Platelet Volume 8.3 fL (7.4-10.4); Platelet Count 147 10^3/uL (150-450); Red Blood Count 4.41 10^6 /uL (3.70-4.87); Red Cell Distribution Width 14 % (10-15); White Blood Count 9.5 10^3/uL (3.5-10.8)
[2022-07-16 20:22] LABS: INR 2.61 (0.88-1.18)
[2022-07-16 20:33] LABS: Urine Appearance Cloudy; Urine Bilirubin Negative (Negative); Urine Blood 2+ (Negative); Urine Color Amber; Urine Glucose Negative (Negative); Urine Ketones Trace (Negative); Urine Nitrite Negative (Negative); Urine Protein 3+(>=500 mg/dL) (Negative); Urine Specific Gravity 1.017 (1.002-1.030); Urine Urobilinogen Positive (Negative)
[2022-07-16 20:42] LABS: Urine Bacteria 2+ (Absent); Urine Red Blood Cell 3+(>10/hpf) (Absent); Urine Squamous Epithelial Cell Present (Absent); Urine White Blood Cell 1+(6-10/hpf) (Absent)
[2022-07-16 20:49] LABS: Albumin 3.4 g/dL (3.2-5.2); Albumin/Globulin Ratio 1.3 (1-3); Calcium 8.5 mg/dL (8.6-10.3); Creatinine, Serum 0.83 mg/dL (0.51-0.95); Globulin 2.7 g/dL (2-4); Magnesium 1.6 mg/dL (1.9-2.7); Total Bilirubin 1.3 mg/dL (0.2-1.0); Total Protein 6.1 g/dL (6.4-8.9)
[2022-07-16 21:33] LABS: High Sensitivity Troponin 1 Hr 23 pg/mL (<15)
[2022-07-16] MEDS ORDERED: Magnesium Sulfate 2 gm BAG 2 GM/50 ML BAG IVPB ONE (21:39)
[2022-07-16] MEDS ORDERED: cefTRIAXone 1 gm/50 mL D5W 1 GM/50 ML BAG IV ONE (21:40)
[2022-07-16] MEDS ORDERED: Azithromycin 500 mg/250 ml NS 500 MG/250 ML BAG IVPB ONE (21:40)
[2022-07-16] MEDS ORDERED: DOXYcycline 100 MG in NS 0.9% 250 ml 250 ML IVPB ONE (21:43)
[2022-07-16 22:37] LABS: C Reactive Protein 195.56 mg/L (<8.01)
[2022-07-16] MEDS ORDERED: Lactated Ringers 1000 ml BAG 500 ML IV ONE (23:01)
[2022-07-17] MEDS: Ciprofloxacin 0.3% OPTH.SOL BTL BOTH EYES SCH ×6 (03:35→23:40)
[2022-07-17] MEDS ORDERED: Lactated Ringers 1000 ml BAG 1,000 ML IV ONE (06:45)
[2022-07-17 07:16] LABS: Blood Urea Nitrogen 12 mg/dL (6-24); CO2 Carbon Dioxide 24 mmol/L (22-32); Chloride 90 mmol/L (101-111); Creatinine, Serum 0.72 mg/dL (0.51-0.95); Glucose 115 mg/dL (70-100); Sodium 124 mmol/L (135-145); eGFR CKD-EPI 81.9 (>60)
[2022-07-17 07:23] LABS: Anion Gap 10 mmol/L (2-11)
[2022-07-17 08:27] LABS: Magnesium 1.9 mg/dL (1.9-2.7); Potassium Redraw 4.1 mmol/L (3.5-5.0)
[2022-07-17] MEDS ORDERED: Azithromycin 500 mg/250 ml NS 500 MG/250 ML BAG IVPB ONE (09:00)
[2022-07-17] MEDS: cefTRIAXone 1 gm/50 mL D5W 1 GM/50 ML BAG IV SCH (20:12)
[2022-07-17 22:47] LABS: Urine Osmo 390 mOsm/kg (150-1150)
[2022-07-18] MEDS: Ciprofloxacin 0.3% OPTH.SOL BTL BOTH EYES SCH ×4 (05:47→23:58)
[2022-07-18 06:16] LABS: CO2 Carbon Dioxide 22 mmol/L (22-32); Calcium 8.2 mg/dL (8.6-10.3); Chloride 89 mmol/L (101-111); Sodium 124 mmol/L (135-145)
[2022-07-18 06:22] LABS: Blood Urea Nitrogen 12 mg/dL (6-24); Creatinine, Serum 0.68 mg/dL (0.51-0.95); Glucose 112 mg/dL (70-100); eGFR CKD-EPI 85.3 (>60)
[2022-07-18 06:25] LABS: ABS Eosinophils 0.1 10^3/ul (0-0.6); ABS Monocytes 0.7 10^3/ul (0-0.8); ABS Neutrophils 6.8 10^3/ul (1.5-7.7); Eosinophil % 0.6 %; Hematocrit 39 % (35-47); Hemoglobin 12.6 g/dL (12.0-16.0); Lymphocyte % 11.3 %; Mean Corpuscular HGB Conc 33 g/dL (31-36); Mean Corpuscular Hemoglobin 30 pg (27-31); Mean Corpuscular Volume 90 fL (80-97); Mean Platelet Volume 8.1 fL (7.4-10.4); Platelet Count 160 10^3/uL (150-450); Red Blood Count 4.28 10^6 /uL (3.70-4.87); Red Cell Distribution Width 14 % (10-15); White Blood Count 8.5 10^3/uL (3.5-10.8)
[2022-07-18 06:35] LABS: Anion Gap 13 mmol/L (2-11)
[2022-07-18 08:02] LABS: Magnesium 1.6 mg/dL (1.9-2.7)
[2022-07-18] MEDS ORDERED: Magnesium Sulf 4 GM/100 ML IV 4,000 MG/100 ML BAG IVPB ONE (09:00)
[2022-07-18 09:14] LABS: Potassium, Whole Blood 3.9 mmol/L (3.4-4.5)
[2022-07-18] MEDS: Azithromycin 500 mg/250 ml NS 500 MG/250 ML BAG IVPB SCH (09:53)
[2022-07-18] MEDS: cefTRIAXone 1 gm/50 mL D5W 1 GM/50 ML BAG IV SCH (20:01)
[2022-07-19 06:29] LABS: ABS Eosinophils 0.1 10^3/ul (0-0.6); ABS Lymphocytes 1.4 10^3/ul (1.0-4.8); ABS Monocytes 0.7 10^3/ul (0-0.8); ABS Neutrophils 6.2 10^3/ul (1.5-7.7); Eosinophil % 0.9 %; Hematocrit 40 % (35-47); Hemoglobin 14.1 g/dL (12.0-16.0); Lymphocyte % 16.4 %; Mean Corpuscular HGB Conc 35 g/dL (31-36); Mean Corpuscular Hemoglobin 31 pg (27-31); Mean Corpuscular Volume 90 fL (80-97); Mean Platelet Volume 8.3 fL (7.4-10.4); Nucleated Red Blood Cells % 0.1; Platelet Count 190 10^3/uL (150-450); Red Blood Count 4.49 10^6 /uL (3.70-4.87); Red Cell Distribution Width 14 % (10-15); White Blood Count 8.4 10^3/uL (3.5-10.8)
[2022-07-19 07:13] LABS: Calcium 8.3 mg/dL (8.6-10.3); Creatinine, Serum 0.73 mg/dL (0.51-0.95); Magnesium 2.1 mg/dL (1.9-2.7); Potassium 4.3 mmol/L (3.5-5.0); eGFR CKD-EPI 80.5 (>60)
[2022-07-19] MEDS: Ciprofloxacin 0.3% OPTH.SOL BTL BOTH EYES SCH ×4 (07:44→22:10)
[2022-07-19] MEDS: Azithromycin 500 mg/250 ml NS 500 MG/250 ML BAG IVPB SCH (10:29)
[2022-07-19] MEDS: cefTRIAXone 1 gm/50 mL D5W 1 GM/50 ML BAG IV SCH (21:02)
[2022-07-20 06:43] LABS: Hematocrit 39 % (35-47); Hemoglobin 12.8 g/dL (12.0-16.0); Mean Corpuscular HGB Conc 33 g/dL (31-36); Mean Corpuscular Hemoglobin 30 pg (27-31); Mean Corpuscular Volume 91 fL (80-97); Mean Platelet Volume 8.4 fL (7.4-10.4); Platelet Count 184 10^3/uL (150-450); Red Cell Distribution Width 14 % (10-15); White Blood Count 7.3 10^3/uL (3.5-10.8)
[2022-07-20 06:59] LABS: C Reactive Protein 115.45 mg/L (<8.01); Calcium 8.1 mg/dL (8.6-10.3); Creatinine, Serum 0.68 mg/dL (0.51-0.95); Potassium 4.2 mmol/L (3.5-5.0); eGFR CKD-EPI 85.3 (>60)
[2022-07-20 07:05] LABS: ABS Eosinophils 0.1 10^3/ul (0-0.6); ABS Monocytes 0.7 10^3/ul (0-0.8); ABS Neutrophils 5.5 10^3/ul (1.5-7.7); Eosinophil % 0.8 %; Lymphocyte % 13.5 %
[2022-07-20] MEDS: Ciprofloxacin 0.3% OPTH.SOL BTL BOTH EYES SCH ×3 (07:35→17:51)
[2022-07-20] MEDS ORDERED: cefTRIAXone 1 gm/50 mL D5W 1 GM/50 ML BAG IV SCH (15:00)
[2022-07-20] MEDS: cefTRIAXone 1 gm/50 mL D5W 1 GM/50 ML BAG IV SCH (20:43)
[2022-07-21] MEDS: Ciprofloxacin 0.3% OPTH.SOL BTL BOTH EYES SCH ×5 (00:24→23:08)
[2022-07-21 05:32] LABS: ABS Eosinophils 0.1 10^3/ul (0-0.6); ABS Lymphocytes 0.9 10^3/ul (1.0-4.8); ABS Monocytes 0.8 10^3/ul (0-0.8); Eosinophil % 0.8 %; Hematocrit 41 % (35-47); Hemoglobin 13.6 g/dL (12.0-16.0); Lymphocyte % 10.1 %; Mean Corpuscular HGB Conc 33 g/dL (31-36); Mean Corpuscular Hemoglobin 30 pg (27-31); Mean Corpuscular Volume 91 fL (80-97); Mean Platelet Volume 7.9 fL (7.4-10.4); Platelet Count 224 10^3/uL (150-450); Red Blood Count 4.53 10^6 /uL (3.70-4.87); Red Cell Distribution Width 14 % (10-15); White Blood Count 8.8 10^3/uL (3.5-10.8)
[2022-07-21 05:57] LABS: Calcium 8.6 mg/dL (8.6-10.3); Creatinine, Serum 0.68 mg/dL (0.51-0.95); Magnesium 1.8 mg/dL (1.9-2.7); Potassium 4.7 mmol/L (3.5-5.0); eGFR CKD-EPI 85.3 (>60)
[2022-07-21] MEDS ORDERED: Magnesium Sulfate 2 gm BAG 2 GM/50 ML BAG IVPB ONE (06:53)
[2022-07-21] MEDS: cefTRIAXone 1 gm/50 mL D5W 1 GM/50 ML BAG IV SCH (21:32)
[2022-07-22 06:39] LABS: ABS Basophils 0.1 10^3/ul (0-0.2); ABS Eosinophils 0.1 10^3/ul (0-0.6); ABS Lymphocytes 1.2 10^3/ul (1.0-4.8); ABS Monocytes 0.7 10^3/ul (0-0.8); ABS Neutrophils 7.9 10^3/ul (1.5-7.7); Hematocrit 39 % (35-47); Hemoglobin 13.3 g/dL (12.0-16.0); Lymphocyte % 11.6 %; Mean Corpuscular HGB Conc 34 g/dL (31-36); Mean Corpuscular Hemoglobin 30 pg (27-31); Mean Corpuscular Volume 90 fL (80-97); Mean Platelet Volume 8.2 fL (7.4-10.4); Platelet Count 238 10^3/uL (150-450); Red Blood Count 4.35 10^6 /uL (3.70-4.87); Red Cell Distribution Width 14 % (10-15); White Blood Count 9.9 10^3/uL (3.5-10.8)
[2022-07-22 06:52] LABS: Calcium 8.3 mg/dL (8.6-10.3); Creatinine, Serum 0.76 mg/dL (0.51-0.95); Magnesium 2.1 mg/dL (1.9-2.7); Potassium 4.4 mmol/L (3.5-5.0); eGFR CKD-EPI 76.7 (>60)
[2022-07-22] MEDS: Ciprofloxacin 0.3% OPTH.SOL BTL BOTH EYES SCH ×2 (07:47→11:02)
[2022-07-22] MEDS ORDERED: Digoxin IV 0.5 MG/2 ML AMP (0.25 MG/ML) IV SLOW PU ONE (14:32)
[2022-07-22 17:12] VITALS: BP 140/60
== END 2022-07-22 18:10 | disposition home or self-care (01) | DRG 193 ==
LOC: EDHOLD 17:42 → ED 17:42 → SUATTDRO 22:01 → MEDTELE 07-17 08:52
PROVIDERS: ADMIT Student in an Organized Health Care Education/Training Program; ATTEND Internal Medicine